=== PATIENT | female | born 1950 | race Hispanic/Latino ===

== ENCOUNTER 2021-11-06 01:21 | Inpatient (IN) | payer MEDICARE ==
[2021-11-06] MEDS ORDERED: clonazePAM 0.5 MG TAB PO ONE (01:53)
[2021-11-06] MEDS ORDERED: risperiDONE 1 MG TAB PO SCH (02:00)
--- NOTE | 2021-11-06 11:05 | Consultation ---
History of Present Illness - Reason for Consult Consult date: 11/06/21 Medical management Requesting physician: MARILEE SWANSON - History of Present Illness 70 YO Female with Vascular Dementia with behavioral disturbance, Cerebral Atherosclerosis, HTN, Seizure Disorder, OA, MDD, CARYN, Bipolar Disorder admitted to [facility] for psychiatric stabilization. Patient seen and evaluated in the recreation room. Patient denies fever, chills, chest pain, palpitation, a dductive cough, skin rash and recent contact, no supportive COVID-19. Patient appears to be at baseline level of cognition and function. No reported nursing events. Past History Past Medical History: arthritis, hypertension, seizures, other (See HPI) Past Surgical History: Other (Spine surgery) Social history: single. denies: smoking, alcohol abuse, prescription drug abuse Family history: diabetes, hypertension Medications and Allergies Allergies Allergy/AdvReac Type Severity Reaction Status Date / Time No Known Allergies Allergy Verified 11/06/21 01:39 Home Medications Medication Instructions Recorded Confirmed Last Taken Type Escitalopram [Lexapro] 10 mg PO DAILY 11/06/21 11/06/21 Unknown History Famotidine [Acid-Pep] 20 mg PO BID 11/06/21 11/06/21 Unknown History Meloxicam [Mobic] 7.5 mg PO QDAY 11/06/21 11/06/21 Unknown History Propranolol HCl [Inderal Xl] 80 mg PO DAILY 11/06/21 11/06/21 Unknown History amLODIPine [Norvasc] 5 mg PO DAILY 11/06/21 11/06/21 Unknown History buPROPion HCL [Bupropion Xl] 150 mg PO DAILY 11/06/21 11/06/21 Unknown History cephALEXin [Keflex] 500 mg PO TID 11/06/21 11/06/21 Unknown History clonazePAM [Klonopin] 1 mg PO QID 11/06/21 11/06/21 Unknown History lamoTRIgine [LaMICtal] 25 mg PO BID 11/06/21 11/06/21 Unknown History lisinopriL [Lisinopril] 10 mg PO DAILY 11/06/21 11/06/21 Unknown History risperiDONE [RisperDAL] 1 mg PO HS 11/06/21 11/06/21 Unknown History risperiDONE [RisperDAL] 1 mg PO HS 11/06/21 11/06/21 Unknown History Review of Systems Constitutional: no weight loss, no weight gain, no fever, no chills Ears, nose, mouth and throat: no ear pain, no ear discharge, no decreased hearing, no nose pain, no nasal congestion Breasts: no change in shape, no swelling, no mass Cardiovascular: no chest pain, no orthopnea, no palpitations, no rapid/irregular heart beat Respiratory: no cough, no excessive sputum Gastrointestinal: no abdominal pain, no nausea, no diarrhea, no constipation, no change in bowel habits Genitourinary Female: no pelvic pain, no flank pain, no dysuria, no urinary frequency, no urgency Rectal: no pain, no incontinence, no bleeding Musculoskeletal: no neck stiffness, no neck pain, no shooting arm pain, no leg numbness/tingling Integumentary: no rash, no pruritis, no redness, no sores, no wounds, no jaundice Neurological: no head injury, no transient paralysis, no weakness, no numbness, no seizures Psychiatric: anxiety, irritability, sadness/tearfullness, mood swings Endocrine: no cold intolerance, no heat intolerance, no excessive thirst, no polydipsia, no polyuria Hematologic/Lymphatic: no easy bleeding, no lymphadenopathy Allergic/Immunologic: no urticaria, no wheezing, no persistent infections, no angioedema Exam - Constitutional Vitals: Temp Pulse Resp BP Pulse Ox 97.5 F L 94 H 18 162/72 97 11/06/21 09:48 11/06/21 09:48 11/06/21 09:48 11/06/21 09:48 11/06/21 09:48 General appearance: Present: no acute distress, well-nourished - EENT Eyes: Present: PERRL ENT: hearing intact, clear oral mucosa - Neck Neck: Present: supple, normal ROM - Respiratory Respiratory effort: normal Respiratory: bilateral: CTA - Cardiovascular Heart Sounds: Present: S1 & S2. Absent: rub, click - Extremities Extremities: pulses symmetrical, No edema Peripheral Pulses: within normal limits - Abdominal General gastrointestinal: Present: soft, non-tender, non-distended, normal bowel sounds Female genitourinary: Present: normal - Integumentary Integumentary: Present: clear, warm, dry - Musculoskeletal Musculoskeletal: gait normal, strength equal bilaterally - Psychiatric Psychiatric: appropriate mood/affect, intact judgment & insight - Neurologic Neurologic: CNII-XII intact, moves all extremities Assessment and Plan - Patient Problems (1) Vascular dementia with behavior disturbance Current Visit: Yes Status: Acute Plan to address problem: Verbal prompting, verbal redirection, benzodiazepine therapy as clinically indicated. (2) Cerebral atherosclerosis Current Visit: Yes Status: Acute Plan to address problem: Risk factor reduction, antiplatelet therapy as clinically indicated. (3) Seizure disorder Current Visit: Yes Status: Acute Plan to address problem: Continue antiepileptic therapy, no seizure activity at this time, seizure precautions. (4) Hypertension Current Visit: Yes Status: Acute Qualifiers: Hypertension type: primary hypertension Qualified Code(s): I10 - Essential (primary) hypertension Plan to address problem: Monitor blood pressure every shift, continue medical management (5) Major depression Current Visit: Yes Status: Acute Plan to address problem: Continue medical management, supportive care. (6) Generalized anxiety disorder Current Visit: Yes Status: Acute Plan to address problem: Benzodiazepine therapy as clinically indicated. (7) Bipolar disorder Current Visit: Yes Status: Acute Plan to address problem: Continue medical management, supportive care. (8) Advance care planning Current Visit: Yes Status: Acute Plan to address problem: Disease education conducted, care plan discussed, diagnoses discussed, prognosis discussed, patient is full code, +30 minutes. (9) Preventative health care Current Visit: Yes Status: Acute Plan to address problem: Patient counseled regarding home safety, risk factor reduction, outpatient follow-up with primary care physician for all age and risk factor appropriate screening test. +30 minutes.
[2021-11-06] MEDS: buPROPion XL 150 MG TAB PO SCH (13:33)
[2021-11-06] MEDS: ESCITALOPRAM 10 MG TAB PO SCH (13:33)
[2021-11-06] MEDS: cephALEXin 500 MG CAP PO SCH ×2 (13:53→20:46)
[2021-11-06] MEDS ORDERED: ACETAMINOPHEN 325 MG TAB PO PRN (13:55)
[2021-11-06] MEDS ORDERED: NON-FORMULARY EACH (Clonazepam [Klonopin] 1 MG Tablet) PO SCH (14:00)
[2021-11-06] MEDS ORDERED: clonazePAM 0.5 MG TAB PO SCH (14:00)
--- NOTE | 2021-11-06 16:31 | History and Physical Report ---
GP History & Physical - History of Present Illness Date of admission: 11/05/21 Date of Examination: 11/06/21 Reason for Admission: Danger to self, Failure of Outpatient Treatment, Severe anxiety/depression History of Present Illness: The patient was seen today. She is very anxious, and crying. She is shaking. She says she is depressed and feeling very nervous. The patient is a/o x 3. She says she was admitted into the hospital for having mental problems. She denies SI/HI or hallucinations. The patient says she has a history of schizophrenia, anxiety. She denies any illicit drug use. PAST PSYCHIATRIC HISTORY: Diagnoses: schizophrenia, anxiety Suicide attempts or Self-harm behavior: Denies Prior psychiatric hospitalizations: Yes Substance Abuse history: Denies Previous psychiatric medications tried: Could not recall Outpatient treatment: Yes PAST MEDICAL HISTORY: Family Psychiatric History: None reported SOCIAL HISTORY Marital Status: Single Living Arrangements: Alone Employment Status: Disabled Access to guns/weapons: Denies Education: History of Abuse: Denies Legal History: REVIEW OF SYSTEMS Constitutional: Negative for weight loss ENT: Negative for stridor Respiratory: Negative for cough or hemoptysis All other systems reviewed and are negative MENTAL STATUS General Appearance and Behavior: age appropriate, good eye contact, cooperative, anxious Cooperation: Cooperative Psychomotor Behavior: within normal limits Mood: depressed, anxious Affect and affective range: Congruent with stated mood, tearful Thought Process: goal directed Thought Content: None Speech: Normal volume and Regular rate and rhythm Suicidal Ideation: Denies Homicidal Ideation: Denies HI Hallucinations: Denies Impulse Control: intact Insight and Judgment: Limited Memory: Limited Attention: Distracted Orientation: alert and oriented Assessment Schizophrenia Generalized Anxiety Disorder Treatment Plan Patient will be admitted for inpatient psychiatric evaluation, medication adjustment and close monitoring The patient's behavior, mood, sleep and appetite will be closely monitored. Patient will be enrolled in individual and group therapeutic sessions and enc ouraged to attend. Patient will be provided with a safe and structured environment. Patient's physical health needs will be addressed by the Hospitalist. Hospitalist Consulted Labs including CBC, CMP, Lipid profile and Hemoglobin A1C ordered Social Assessment will be completed and the Lumber Salvager will work with patient and family to ensure a suitable and safe disposition Medication adjustment will be made as clinically indicated Restarted home meds Usual Wellness Roman Catholic/Preservation: - Start Trazodone 50 mg po QHS PRN The patient agreed on the treatment plan, understood the risk, benefit, alternative treatment, potential consequence of no treatment, and gave informed consent. Case staffed with Dr. Bull Legal Status: Voluntary Reaction to Hospitalization: Accepting Medications and Allergies Allergies Allergy/AdvReac Type Severity Reaction Status Date / Time No Known Allergies Allergy Verified 11/06/21 01:39 Home Medications Medication Instructions Recorded Confirmed Last Taken Type Escitalopram [Lexapro] 10 mg PO DAILY 11/06/21 11/06/21 Unknown History Famotidine [Acid-Pep] 20 mg PO BID 11/06/21 11/06/21 Unknown History Meloxicam [Mobic] 7.5 mg PO QDAY 11/06/21 11/06/21 Unknown History Propranolol HCl [Inderal Xl] 80 mg PO DAILY 11/06/21 11/06/21 Unknown History amLODIPine [Norvasc] 5 mg PO DAILY 11/06/21 11/06/21 Unknown History buPROPion HCL [Bupropion Xl] 150 mg PO DAILY 11/06/21 11/06/21 Unknown History cephALEXin [Keflex] 500 mg PO TID 11/06/21 11/06/21 Unknown History clonazePAM [Klonopin] 1 mg PO QID 11/06/21 11/06/21 Unknown History lamoTRIgine [LaMICtal] 25 mg PO BID 11/06/21 11/06/21 Unknown History lisinopriL [Lisinopril] 10 mg PO DAILY 11/06/21 11/06/21 Unknown History risperiDONE [RisperDAL] 1 mg PO HS 11/06/21 11/06/21 Unknown History risperiDONE [RisperDAL] 1 mg PO HS 11/06/21 11/06/21 Unknown History Active Meds: Active Medications Acetaminophen (Acetaminophen 325 Mg Tab) 650 mg PO Q6H PRN PRN Reason: Pain, Mild (1-3) Last Admin: 11/06/21 14:00 Dose: 650 mg Amlodipine Besylate (Amlodipine 5 Mg Tab) 5 mg PO DAILY [facility] Bupropion HCl (Bupropion Xl 150 Mg Tab) 150 mg PO DAILY [facility] Last Admin: 11/06/21 13:33 Dose: 150 mg Cephalexin (Cephalexin 500 Mg Cap) 500 mg PO TID [facility]; Protocol Last Admin: 11/06/21 13:53 Dose: 500 mg Clonazepam (Clonazepam 0.5 Mg Tab) 1 mg PO TID [facility] Last Admin: 11/06/21 13:33 Dose: 1 mg Escitalopram Oxalate (Escitalopram 10 Mg Tab) 10 mg PO DAILY [facility] Last Admin: 11/06/21 13:33 Dose: 10 mg Famotidine (Famotidine 20 Mg Tab) 20 mg PO BID [facility] Lamotrigine (Lamotrigine 25 Mg Tab) 25 mg PO BID [facility] Lisinopril (Lisinopril 10 Mg Tab) 10 mg PO DAILY [facility] Meloxicam (Meloxicam 7.5 Mg Tab) 7.5 mg PO QDAY [facility] Propranolol HCl (Propranolol La 80 Mg Cap) 80 mg PO QDAY [facility] Risperidone (Risperidone 1 Mg Tab) 1 mg PO HS [facility] Results - Results Labs/Vitals: Last Vital Signs Temp 97.5 F L 11/06/21 09:48 Pulse 94 H 11/06/21 09:48 Resp 18 11/06/21 09:48 BP 162/72 11/06/21 09:48 Pulse Ox 97 11/06/21 09:48 Physical Examination - Constitutional Vitals: Vital Signs Temp Pulse Resp BP Pulse Ox 97.5 F L 94 H 18 162/72 97 11/06/21 09:48 11/06/21 09:48 11/06/21 09:48 11/06/21 09:48 11/06/21 09:48 Temperature -Last 24 Hours Temperature 97.5 F Temperature 98.3 F Mental Status Exam - Vital signs Last Vital Signs Temp 97.5 F L 11/06/21 09:48 Pulse 94 H 11/06/21 09:48 Resp 18 11/06/21 09:48 BP 162/72 11/06/21 09:48 Pulse Ox 97 11/06/21 09:48 Physician Certification - Certification Statement Physician Certification Statement: This is an acknowledgement statement that JEN PHELAN is a 70 year old F who requires inpatient psychiatric admission for treatment which could reasonably be expected to improve the patient's condition for Estimated period of time patient will need to remain in the hospital: [ ] Plan for post-hospital care: [ ]
[2021-11-06] MEDS: clonazePAM 0.5 MG TAB PO SCH ×2 (17:55→21:46)
[2021-11-06] MEDS: FAMOTIDINE 20 MG TAB PO SCH (21:46)
[2021-11-06] MEDS: risperiDONE 1 MG TAB PO SCH (21:47)
[2021-11-06] MEDS: lamoTRIgine 25 MG TAB PO SCH (21:47)
--- NOTE | 2021-11-07 09:19 | Progress Note ---
Subjective Date of service: 11/07/21 Principal diagnosis: schizophrenia Subjective Comment: The patient was seen today. She says she feels a lot better. She does still report a lot of anxiety. She says she slept good last night. The patient denies SI/HI. REVIEW OF SYSTEMS Constitutional: Negative for weight loss ENT: Negative for stridor Respiratory: Negative for cough or hemoptysis All other systems reviewed and are negative MENTAL STATUS General Appearance and Behavior: age appropriate, good eye contact, cooperative, anxious Cooperation: Cooperative Psychomotor Behavior: within normal limits Mood: depressed, anxious Affect and affective range: Congruent with stated mood, tearful Thought Process: goal directed Thought Content: None Speech: Normal volume and Regular rate and rhythm Suicidal Ideation: Denies Homicidal Ideation: Denies HI Hallucinations: Denies Impulse Control: intact Insight and Judgment: Limited Memory: Limited Attention: Distracted Orientation: alert and oriented Assessment Schizophrenia Generalized Anxiety Disorder Treatment Plan Patient will be admitted for inpatient psychiatric evaluation, medication adjustment and close monitoring The patient's behavior, mood, sleep and appetite will be closely monitored. Patient will be enrolled in individual and group therapeutic sessions and enco uraged to attend. Patient will be provided with a safe and structured environment. Patient's physical health needs will be addressed by the Hospitalist. Hospitalist Consulted Labs including CBC, CMP, Lipid profile and Hemoglobin A1C ordered Social Assessment will be completed and the Infrastructure Technician will work with patient and family to ensure a suitable and safe disposition Medication adjustment will be made as clinically indicated Start Vistaril 25mg po q6h prn anxiety Usual Wellness Druze/Preservation: - Start Trazodone 50 mg po QHS PRN The patient agreed on the treatment plan, understood the risk, benefit, alternative treatment, potential consequence of no treatment, and gave informed consent. Case staffed with Dr. Bull Medications and Allergies Allergies Allergy/AdvReac Type Severity Reaction Status Date / Time No Known Allergies Allergy Verified 11/06/21 01:39 Home Medications Medication Instructions Recorded Confirmed Last Taken Type Escitalopram [Lexapro] 10 mg PO DAILY 11/06/21 11/06/21 Unknown History Famotidine [Acid-Pep] 20 mg PO BID 11/06/21 11/06/21 Unknown History Meloxicam [Mobic] 7.5 mg PO QDAY 11/06/21 11/06/21 Unknown History Propranolol HCl [Inderal Xl] 80 mg PO DAILY 11/06/21 11/06/21 Unknown History amLODIPine [Norvasc] 5 mg PO DAILY 11/06/21 11/06/21 Unknown History buPROPion HCL [Bupropion Xl] 150 mg PO DAILY 11/06/21 11/06/21 Unknown History cephALEXin [Keflex] 500 mg PO TID 11/06/21 11/06/21 Unknown History clonazePAM [Klonopin] 1 mg PO QID 11/06/21 11/06/21 Unknown History lamoTRIgine [LaMICtal] 25 mg PO BID 11/06/21 11/06/21 Unknown History lisinopriL [Lisinopril] 10 mg PO DAILY 11/06/21 11/06/21 Unknown History risperiDONE [RisperDAL] 1 mg PO HS 11/06/21 11/06/21 Unknown History risperiDONE [RisperDAL] 1 mg PO HS 11/06/21 11/06/21 Unknown History Active Meds: Active Medications Acetaminophen (Acetaminophen 325 Mg Tab) 650 mg PO Q6H PRN PRN Reason: Pain, Mild (1-3) Last Admin: 11/06/21 14:00 Dose: 650 mg Amlodipine Besylate (Amlodipine 5 Mg Tab) 5 mg PO DAILY [facility] Bupropion HCl (Bupropion Xl 150 Mg Tab) 150 mg PO DAILY [facility] Last Admin: 11/06/21 13:33 Dose: 150 mg Cephalexin (Cephalexin 500 Mg Cap) 500 mg PO TID [facility]; Protocol Stop: 11/13/21 08:01 Last Admin: 11/06/21 20:46 Dose: 500 mg Clonazepam (Clonazepam 0.5 Mg Tab) 1 mg PO QID [facility] Last Admin: 11/06/21 21:46 Dose: 1 mg Escitalopram Oxalate (Escitalopram 10 Mg Tab) 10 mg PO DAILY [facility] Last Admin: 11/06/21 13:33 Dose: 10 mg Famotidine (Famotidine 20 Mg Tab) 20 mg PO BID [facility] Last Admin: 11/06/21 21:46 Dose: 20 mg Lamotrigine (Lamotrigine 25 Mg Tab) 25 mg PO BID [facility] Last Admin: 11/06/21 21:47 Dose: 25 mg Lisinopril (Lisinopril 10 Mg Tab) 10 mg PO DAILY [facility] Meloxicam (Meloxicam 7.5 Mg Tab) 7.5 mg PO QDAY [facility] Propranolol HCl (Propranolol La 80 Mg Cap) 80 mg PO QDAY [facility] Risperidone (Risperidone 1 Mg Tab) 1 mg PO HS [facility] Last Admin: 11/06/21 21:47 Dose: 1 mg Results - Results Labs/Vitals: Last Vital Signs Temp 98.2 F 11/06/21 19:49 Pulse 90 11/06/21 19:49 Resp 18 11/06/21 19:49 BP 156/83 11/06/21 19:49 Pulse Ox 90 11/06/21 19:49
[2021-11-07] MEDS: clonazePAM 0.5 MG TAB PO SCH ×4 (09:35→21:29)
[2021-11-07] MEDS: lamoTRIgine 25 MG TAB PO SCH ×2 (09:35→21:30)
[2021-11-07] MEDS: cephALEXin 500 MG CAP PO SCH ×3 (09:35→20:35)
[2021-11-07] MEDS: ESCITALOPRAM 10 MG TAB PO SCH (09:35)
[2021-11-07] MEDS: buPROPion XL 150 MG TAB PO SCH (09:36)
[2021-11-07] MEDS: MELOXICAM 7.5 MG TAB PO SCH (09:36)
[2021-11-07] MEDS: PROPRANOLOL LA 80 MG CAP PO SCH (09:40)
[2021-11-07] MEDS: amLODIPine 5 MG TAB PO SCH (09:40)
[2021-11-07] MEDS ORDERED: hydrOXYzine PAMOATE 25 MG CAP PO PRN (10:00)
[2021-11-07] MEDS ORDERED: PROPRANOLOL HCL 80 MG PO SCH (10:00)
[2021-11-07] MEDS: LISINOPRIL 10 MG TAB PO SCH (11:00)
[2021-11-07] MEDS: FAMOTIDINE 20 MG TAB PO SCH ×2 (16:05→21:30)
[2021-11-07] MEDS ORDERED: ACETAMINOPHEN 325 MG TAB PO PRN (16:33)
--- NOTE | 2021-11-07 20:10 | Progress Note ---
Assessment and Plan - Patient Problems (1) Vascular dementia with behavior disturbance Current Visit: Yes Status: Acute Plan to address problem: Verbal prompting, verbal redirection, benzodiazepine therapy as clinically indicated. (2) Cerebral atherosclerosis Current Visit: Yes Status: Acute Plan to address problem: Risk factor reduction, antiplatelet therapy as clinically indicated. (3) Seizure disorder Current Visit: Yes Status: Acute Plan to address problem: Continue antiepileptic therapy, no seizure activity at this time, seizure precautions. (4) Hypertension Current Visit: Yes Status: Acute Qualifiers: Hypertension type: primary hypertension Qualified Code(s): I10 - Essential (primary) hypertension Plan to address problem: Monitor blood pressure every shift, continue medical management (5) Major depression Current Visit: Yes Status: Acute Plan to address problem: Continue medical management, supportive care. (6) Generalized anxiety disorder Current Visit: Yes Status: Acute Plan to address problem: Benzodiazepine therapy as clinically indicated. (7) Bipolar disorder Current Visit: Yes Status: Acute Plan to address problem: Continue medical management, supportive care. (8) Advance care planning Current Visit: Yes Status: Acute Plan to address problem: Disease education conducted, care plan discussed, diagnoses discussed, prognosis discussed, patient is full code, +30 minutes. (9) Preventative health care Current Visit: Yes Status: Acute Plan to address problem: Patient counseled regarding home safety, risk factor reduction, outpatient follow-up with primary care physician for all age and risk factor appropriate screening test. +30 minutes. History Interval history: 70 YO Female with Vascular Dementia with behavioral disturbance, Cerebral Atherosclerosis, HTN, Seizure Disorder, OA, MDD, CARYN, Bipolar Disorder admitted to [facility] for psychiatric stabilization. Patient seen and evaluated in the recreation room. Patient appears to be at baseline level of cognition and function. No reported nursing events. Hospitalist Physical - Constitutional Vitals: Temp Pulse Resp BP Pulse Ox 98.1 F 110 H 20 120/77 94 11/07/21 09:49 11/07/21 11:00 11/07/21 09:49 11/07/21 11:00 11/07/21 09:49 General appearance: Present: no acute distress, well-nourished - EENT Eyes: Present: PERRL ENT: hearing decreased - Neck Neck: Present: supple - Respiratory Respiratory effort: normal Respiratory: bilateral: diminished - Cardiovascular Rhythm: regular Heart Sounds: Present: S1 & S2 - Extremities Extremities: no ischemia Peripheral Pulses: within normal limits - Abdominal General gastrointestinal: soft, non-tender, non-distended - Integumentary Integumentary: Present: clear, dry - Psychiatric Psychiatric: cooperative - Neurologic Neurologic: CNII-XII intact Results Lloyd/IV: Voiding Method Toilet Active Medications - Current Medications Current Medications: Generic Name Dose Route Start Last Admin Trade Name Freq PRN Reason Stop Dose Admin Acetaminophen 650 mg 11/07/21 16:48 Acetaminophen 325 Mg Tab PO Q6H PRN Pain, Mild (1-3) Amlodipine Besylate 5 mg 11/07/21 10:00 11/07/21 09:40 Amlodipine 5 Mg Tab PO 5 mg DAILY [facility] Administration Bupropion HCl 150 mg 11/06/21 13:00 11/07/21 09:36 Bupropion Xl 150 Mg Tab PO 150 mg DAILY [facility] Administration Cephalexin 500 mg 11/06/21 14:00 11/07/21 16:05 Cephalexin 500 Mg Cap PO 11/13/21 08:01 500 mg TID [facility] Administration Protocol Clonazepam 1 mg 11/06/21 18:00 11/07/21 18:35 Clonazepam 0.5 Mg Tab PO 1 mg QID [facility] Administration Escitalopram Oxalate 10 mg 11/06/21 14:00 11/07/21 09:35 Escitalopram 10 Mg Tab PO 10 mg DAILY [facility] Administration Famotidine 20 mg 11/06/21 22:00 11/07/21 16:05 Famotidine 20 Mg Tab PO 20 mg BID [facility] Administration Hydroxyzine Pamoate 25 mg 11/07/21 10:00 Hydroxyzine Pamoate 25 Mg Cap PO Q6H PRN Anxiety Lamotrigine 25 mg 11/06/21 22:00 11/07/21 09:35 Lamotrigine 25 Mg Tab PO 25 mg BID [facility] Administration Lisinopril 10 mg 11/07/21 10:00 11/07/21 11:00 Lisinopril 10 Mg Tab PO 10 mg DAILY [facility] Administration Meloxicam 7.5 mg 11/07/21 10:00 11/07/21 09:36 Meloxicam 7.5 Mg Tab PO 7.5 mg QDAY [facility] Administration Propranolol HCl 80 mg 11/07/21 10:00 11/07/21 09:40 Propranolol La 80 Mg Cap PO 80 mg QDAY [facility] Administration Risperidone 1 mg 11/06/21 22:00 11/06/21 21:47 Risperidone 1 Mg Tab PO 1 mg HS [facility] Administration
[2021-11-07] MEDS: risperiDONE 1 MG TAB PO SCH (21:30)
[2021-11-08] MEDS: PROPRANOLOL LA 80 MG CAP PO SCH (09:34)
[2021-11-08] MEDS: clonazePAM 0.5 MG TAB PO SCH ×4 (09:34→21:42)
[2021-11-08] MEDS: lamoTRIgine 25 MG TAB PO SCH ×2 (09:34→22:12)
[2021-11-08] MEDS: FAMOTIDINE 20 MG TAB PO SCH ×2 (09:34→21:43)
[2021-11-08] MEDS: MELOXICAM 7.5 MG TAB PO SCH (09:35)
[2021-11-08] MEDS: buPROPion XL 150 MG TAB PO SCH (09:35)
[2021-11-08] MEDS: cephALEXin 500 MG CAP PO SCH ×3 (09:35→20:58)
[2021-11-08] MEDS: ESCITALOPRAM 10 MG TAB PO SCH (09:35)
[2021-11-08] MEDS: LISINOPRIL 10 MG TAB PO SCH (09:40)
[2021-11-08] MEDS: amLODIPine 5 MG TAB PO SCH (09:40)
[2021-11-08] MEDS: ACETAMINOPHEN 325 MG TAB PO PRN (11:16)
--- NOTE | 2021-11-08 12:48 | Progress Note ---
Subjective Date of service: 11/08/21 Principal diagnosis: schizophrenia Subjective Comment: 11/08: The patient was seen today. The patient presents with somatic issues. She is calm and cooperative. She reports feeling a little depressed. She denies any current suicidal/homicidal ideation and denies hallucinations. REVIEW OF SYSTEMS Constitutional: Negative for weight loss ENT: Negative for stridor Respiratory: Negative for cough or hemoptysis All other systems reviewed and are negative MENTAL STATUS General Appearance and Behavior: age appropriate, good eye contact, cooperative Cooperation: Cooperative Psychomotor Behavior: within normal limits Mood: depressed Affect and affective range: Congruent with stated mood Thought Process: goal directed Thought Content:reality oriented Speech: Normal volume and Regular rate and rhythm Suicidal Ideation: Denies Homicidal Ideation: Denies HI Hallucinations: Denies Impulse Control: intact Insight and Judgment: Limited Memory: Limited Attention: Distracted Orientation: alert and oriented Assessment Schizophrenia Generalized Anxiety Disorder Treatment Plan Patient will be admitted for inpatient psychiatric evaluation, medication adjustment and close monitoring The patient's behavior, mood, sleep and appetite will be closely monitored. Patient will be enrolled in individual and group therapeutic sessions and encouraged to attend. Patient will be provided with a safe and structured environment. Patient's physical health needs will be addressed by the Hospitalist. Hospitalist Consulted Labs including CBC, CMP, Lipid profile and Hemoglobin A1C ordered Social Assessment will be completed and the Surveillance Director will work with patient and family to ensure a suitable and safe disposition Medication adjustment will be made as clinically indicated Continue Vistaril 25mg po q6h prn anxiety No changes made today. Usual Wellness Adventist/Preservation: - Start Trazodone 50 mg po QHS PRN The patient agreed on the treatment plan, understood the risk, benefit, alternative treatment, potential consequence of no treatment, and gave informed consent. Case staffed with Dr. Bull Medications and Allergies Medications and Allergies Allergies Allergy/AdvReac Type Severity Reaction Status Date / Time No Known Allergies Allergy Verified 11/06/21 01:39 Home Medications Medication Instructions Recorded Confirmed Last Taken Type Escitalopram [Lexapro] 10 mg PO DAILY 11/06/21 11/06/21 Unknown History Famotidine [Acid-Pep] 20 mg PO BID 11/06/21 11/06/21 Unknown History Meloxicam [Mobic] 7.5 mg PO QDAY 11/06/21 11/06/21 Unknown History Propranolol HCl [Inderal Xl] 80 mg PO DAILY 11/06/21 11/06/21 Unknown History amLODIPine [Norvasc] 5 mg PO DAILY 11/06/21 11/06/21 Unknown History buPROPion HCL [Bupropion Xl] 150 mg PO DAILY 11/06/21 11/06/21 Unknown History cephALEXin [Keflex] 500 mg PO TID 11/06/21 11/06/21 Unknown History clonazePAM [Klonopin] 1 mg PO QID 11/06/21 11/06/21 Unknown History lamoTRIgine [LaMICtal] 25 mg PO BID 11/06/21 11/06/21 Unknown History lisinopriL [Lisinopril] 10 mg PO DAILY 11/06/21 11/06/21 Unknown History risperiDONE [RisperDAL] 1 mg PO HS 11/06/21 11/06/21 Unknown History risperiDONE [RisperDAL] 1 mg PO HS 11/06/21 11/06/21 Unknown History Active Meds: Active Medications Acetaminophen (Acetaminophen 325 Mg Tab) 650 mg PO Q6H PRN PRN Reason: Pain, Mild (1-3) Last Admin: 11/08/21 11:16 Dose: 650 mg Amlodipine Besylate (Amlodipine 5 Mg Tab) 5 mg PO DAILY [facility] Last Admin: 11/08/21 09:40 Dose: 5 mg Bupropion HCl (Bupropion Xl 150 Mg Tab) 150 mg PO DAILY [facility] Last Admin: 11/08/21 09:35 Dose: 150 mg Cephalexin (Cephalexin 500 Mg Cap) 500 mg PO TID [facility]; Protocol Stop: 11/13/21 08:01 Last Admin: 11/08/21 09:35 Dose: 500 mg Clonazepam (Clonazepam 0.5 Mg Tab) 1 mg PO QID [facility] Last Admin: 11/08/21 09:34 Dose: 1 mg Escitalopram Oxalate (Escitalopram 10 Mg Tab) 10 mg PO DAILY [facility] Last Admin: 11/08/21 09:35 Dose: 10 mg Famotidine (Famotidine 20 Mg Tab) 20 mg PO BID [facility] Last Admin: 11/08/21 09:34 Dose: 20 mg Hydroxyzine Pamoate (Hydroxyzine Pamoate 25 Mg Cap) 25 mg PO Q6H PRN PRN Reason: Anxiety Last Admin: 11/08/21 11:16 Dose: 25 mg Lamotrigine (Lamotrigine 25 Mg Tab) 25 mg PO BID [facility] Last Admin: 11/08/21 09:34 Dose: 25 mg Lisinopril (Lisinopril 10 Mg Tab) 10 mg PO DAILY [facility] Last Admin: 11/08/21 09:40 Dose: 10 mg Meloxicam (Meloxicam 7.5 Mg Tab) 7.5 mg PO QDAY [facility] Last Admin: 11/08/21 09:35 Dose: 7.5 mg Propranolol HCl (Propranolol La 80 Mg Cap) 80 mg PO QDAY [facility] Last Admin: 11/08/21 09:34 Dose: 80 mg Risperidone (Risperidone 1 Mg Tab) 1 mg PO [facility] Last Admin: 11/07/21 21:30 Dose: 1 mg Results - Results Labs/Vitals: Last Vital Signs Temp 97.3 F L 11/07/21 21:13 Pulse 69 11/08/21 09:40 Resp 18 11/07/21 21:13 BP 112/71 11/08/21 09:40 Pulse Ox 92 11/07/21 21:13
[2021-11-08] MEDS: risperiDONE 1 MG TAB PO SCH (21:43)
[2021-11-09] MEDS: ESCITALOPRAM 10 MG TAB PO SCH (09:34)
[2021-11-09] MEDS: lamoTRIgine 25 MG TAB PO SCH ×2 (09:34→21:56)
[2021-11-09] MEDS: MELOXICAM 7.5 MG TAB PO SCH (09:34)
[2021-11-09] MEDS: FAMOTIDINE 20 MG TAB PO SCH ×2 (09:36→21:56)
[2021-11-09] MEDS: buPROPion XL 150 MG TAB PO SCH (09:36)
[2021-11-09] MEDS: cephALEXin 500 MG CAP PO SCH ×3 (09:36→20:05)
--- NOTE | 2021-11-09 09:58 | Progress Note ---
Subjective Date of service: 11/09/21 Principal diagnosis: schizophrenia Subjective Comment: 11/09: The patient was seen today. She is calm and cooperative. She reports doing ok; states sleep and appetite as good. She denies any current suicidal/homicidal ideation and denies hallucinations. 11/08: The patient was seen today. The patient presents with somatic issues. She is calm and cooperative. She reports feeling a little depressed. She denies any current suicidal/homicidal ideation and denies hallucinations. REVIEW OF SYSTEMS Constitutional: Negative for weight loss ENT: Negative for stridor Respiratory: Negative for cough or hemoptysis All other systems reviewed and are negative MENTAL STATUS General Appearance and Behavior: age appropriate, good eye contact, cooperative Cooperation: Cooperative Psychomotor Behavior: within normal limits Mood: Ok Affect and affective range: Congruent with stated mood Thought Process: goal directed Thought Content:reality oriented Speech: Normal volume and Regular rate and rhythm Suicidal Ideation: Denies Homicidal Ideation: Denies HI Hallucinations: Denies Impulse Control: intact Insight and Judgment: Limited Memory: Limited Attention: Distracted Orientation: alert and oriented Assessment Schizophrenia Generalized Anxiety Disorder Treatment Plan Patient will be admitted for inpatient psychiatric evaluation, medication adjustment and close monitoring The patient's behavior, mood, sleep and appetite will be closely monitored. Patient will be enrolled in individual and group therapeutic sessions and encouraged to attend. Patient will be provided with a safe and structured environment. Patient's physical health needs will be addressed by the Hospitalist. Adelita rowe Consulted Labs including CBC, CMP, Lipid profile and Hemoglobin A1C ordered Social Assessment will be completed and the Geology Scientist will work with patient and family to ensure a suitable and safe disposition Medication adjustment will be made as clinically indicated Continue Vistaril 25mg po q6h prn anxiety No changes made today. Usual Wellness Adventism/Preservation: - Start Trazodone 50 mg po QHS PRN The patient agreed on the treatment plan, understood the risk, benefit, alternative treatment, potential consequence of no treatment, and gave informed consent. Case staffed with Dr. Bull Medications and Allergies Medications and Allergies Allergies Allergy/AdvReac Type Severity Reaction Status Date / Time No Known Allergies Allergy Verified 11/06/21 01:39 Home Medications Medication Instructions Recorded Confirmed Last Taken Type Escitalopram [Lexapro] 10 mg PO DAILY 11/06/21 11/06/21 Unknown History Famotidine [Acid-Pep] 20 mg PO BID 11/06/21 11/06/21 Unknown History Meloxicam [Mobic] 7.5 mg PO QDAY 11/06/21 11/06/21 Unknown History Propranolol HCl [Inderal Xl] 80 mg PO DAILY 11/06/21 11/06/21 Unknown History amLODIPine [Norvasc] 5 mg PO DAILY 11/06/21 11/06/21 Unknown History buPROPion HCL [Bupropion Xl] 150 mg PO DAILY 11/06/21 11/06/21 Unknown History cephALEXin [Keflex] 500 mg PO TID 11/06/21 11/06/21 Unknown History clonazePAM [Klonopin] 1 mg PO QID 11/06/21 11/06/21 Unknown History lamoTRIgine [LaMICtal] 25 mg PO BID 11/06/21 11/06/21 Unknown History lisinopriL [Lisinopril] 10 mg PO DAILY 11/06/21 11/06/21 Unknown History risperiDONE [RisperDAL] 1 mg PO HS 11/06/21 11/06/21 Unknown History risperiDONE [RisperDAL] 1 mg PO HS 11/06/21 11/06/21 Unknown History Active Meds: Active Medications Acetaminophen (Acetaminophen 325 Mg Tab) 650 mg PO Q6H PRN PRN Reason: Pain, Mild (1-3) Last Admin: 11/08/21 11:16 Dose: 650 mg Amlodipine Besylate (Amlodipine 5 Mg Tab) 5 mg PO DAILY [facility] Last Admin: 11/08/21 09:40 Dose: 5 mg Bupropion HCl (Bupropion Xl 150 Mg Tab) 150 mg PO DAILY [facility] Last Admin: 11/09/21 09:36 Dose: 150 mg Cephalexin (Cephalexin 500 Mg Cap) 500 mg PO TID [facility]; Protocol Stop: 11/13/21 08:01 Last Admin: 11/09/21 09:36 Dose: 500 mg Clonazepam (Clonazepam 0.5 Mg Tab) 1 mg PO QID [facility] Last Admin: 11/08/21 21:42 Dose: 1 mg Escitalopram Oxalate (Escitalopram 10 Mg Tab) 10 mg PO DAILY [facility] Last Admin: 11/09/21 09:34 Dose: 10 mg Famotidine (Famotidine 20 Mg Tab) 20 mg PO BID [facility] Last Admin: 11/09/21 09:36 Dose: 20 mg Hydroxyzine Pamoate (Hydroxyzine Pamoate 25 Mg Cap) 25 mg PO Q6H PRN PRN Reason: Anxiety Last Admin: 11/08/21 11:16 Dose: 25 mg Lamotrigine (Lamotrigine 25 Mg Tab) 25 mg PO BID [facility] Last Admin: 11/09/21 09:34 Dose: 25 mg Lisinopril (Lisinopril 10 Mg Tab) 10 mg PO DAILY [facility] Last Admin: 11/08/21 09:40 Dose: 10 mg Meloxicam (Meloxicam 7.5 Mg Tab) 7.5 mg PO QDAY [facility] Last Admin: 11/09/21 09:34 Dose: 7.5 mg Propranolol HCl (Propranolol La 80 Mg Cap) 80 mg PO QDAY [facility] Last Admin: 11/08/21 09:34 Dose: 80 mg Risperidone (Risperidone 1 Mg Tab) 1 mg PO [facility] Last Admin: 11/08/21 21:43 Dose: 1 mg Results - Results Labs/Vitals: Last Vital Signs Temp 97.7 F 11/09/21 09:01 Pulse 67 11/09/21 09:01 Resp 16 11/09/21 09:01 BP 116/64 11/09/21 09:01 Pulse Ox 97 11/09/21 09:01
[2021-11-09] MEDS: amLODIPine 5 MG TAB PO SCH (10:33)
[2021-11-09] MEDS: PROPRANOLOL LA 80 MG CAP PO SCH (10:33)
[2021-11-09] MEDS: LISINOPRIL 10 MG TAB PO SCH (10:34)
[2021-11-09] MEDS: clonazePAM 0.5 MG TAB PO SCH ×4 (11:13→21:56)
[2021-11-09] MEDS: ACETAMINOPHEN 325 MG TAB PO PRN (13:29)
[2021-11-09] MEDS: risperiDONE 1 MG TAB PO SCH (21:56)
[2021-11-10] MEDS: buPROPion XL 150 MG TAB PO SCH (09:08)
[2021-11-10] MEDS: cephALEXin 500 MG CAP PO SCH ×3 (09:08→20:27)
[2021-11-10] MEDS: LISINOPRIL 10 MG TAB PO SCH (09:09)
[2021-11-10] MEDS: FAMOTIDINE 20 MG TAB PO SCH ×2 (09:09→21:34)
[2021-11-10] MEDS: clonazePAM 0.5 MG TAB PO SCH ×4 (09:09→21:33)
[2021-11-10] MEDS: lamoTRIgine 25 MG TAB PO SCH ×2 (09:11→21:34)
[2021-11-10] MEDS: amLODIPine 5 MG TAB PO SCH (09:11)
[2021-11-10] MEDS: PROPRANOLOL LA 80 MG CAP PO SCH (09:12)
[2021-11-10] MEDS: MELOXICAM 7.5 MG TAB PO SCH (09:13)
[2021-11-10] MEDS: ESCITALOPRAM 10 MG TAB PO SCH (09:14)
--- NOTE | 2021-11-10 09:34 | Progress Note ---
Subjective Date of service: 11/10/21 Principal diagnosis: schizophrenia Subjective Comment: 11/10:The patient was seen today at breakfast. She reports doing ok but reports feeling anxious. She reports sleep and appetite as good. She denies any current suicidal/homicidal ideation and denies hallucinations. No changes made today 11/09: The patient was seen today. She is calm and cooperative. She reports doing ok; states sleep and appetite as good. She denies any current suicidal/homicidal ideation and denies hallucinations. 11/08: The patient was seen today. The patient presents with somatic issues. She is calm and cooperative. She reports feeling a little depressed. She denies any current suicidal/homicidal ideation and denies hallucinations. REVIEW OF SYSTEMS Constitutional: Negative for weight loss ENT: Negative for stridor Respiratory: Negative for cough or hemoptysis All other systems reviewed and are negative MENTAL STATUS General Appearance and Behavior: age appropriate, good eye contact, cooperative Cooperation: Cooperative Psychomotor Behavior: within normal limits Mood: anxious Affect and affective range: Congruent with stated mood Thought Process: goal directed Thought Content:reality oriented Speech: Normal volume and Regular rate and rhythm Suicidal Ideation: Denies Homicidal Ideation: Denies HI Hallucinations: Denies Impulse Control: intact Insight and Judgment: Limited Memory: Limited Attention: Distracted Orientation: alert and oriented Assessment Schizophrenia Generalized Anxiety Disorder Treatment Plan Patient will be admitted for inpatient psychiatric evaluation, medication adjustment and close monitoring The patient's behavior, mood, sleep and appetite will be closely monitored. Patient will be enrolled in individual and group therapeutic sessions and encouraged to attend. Patient will be provided with a safe and structured environment. Patient's physical health needs will be addressed by the Hospitalist. Hospitalist Consulted Labs including CBC, CMP, Lipid profile and Hemoglobin A1C ordered Social Assessment will be completed and the Claims Representative will work with patient and family to ensure a suitable and safe disposition Medication adjustment will be made as clinically indicated Continue Vistaril 25mg po q6h prn anxiety No changes made today. Usual Wellness Taoism/Preservation: - Start Trazodone 50 mg po QHS PRN The patient agreed on the treatment plan, understood the risk, benefit, alternative treatment, potential consequence of no treatment, and gave informed consent. Case staffed with Dr. Bull Medications and Allergies Medications and Allergies Allergies Allergy/AdvReac Type Severity Reaction Status Date / Time No Known Allergies Allergy Verified 11/06/21 01:39 Home Medications Medication Instructions Recorded Confirmed Last Taken Type Escitalopram [Lexapro] 10 mg PO DAILY 11/06/21 11/06/21 Unknown History Famotidine [Acid-Pep] 20 mg PO BID 11/06/21 11/06/21 Unknown History Meloxicam [Mobic] 7.5 mg PO QDAY 11/06/21 11/06/21 Unknown History Propranolol HCl [Inderal Xl] 80 mg PO DAILY 11/06/21 11/06/21 Unknown History amLODIPine [Norvasc] 5 mg PO DAILY 11/06/21 11/06/21 Unknown History buPROPion HCL [Bupropion Xl] 150 mg PO DAILY 11/06/21 11/06/21 Unknown History cephALEXin [Keflex] 500 mg PO TID 11/06/21 11/06/21 Unknown History clonazePAM [Klonopin] 1 mg PO QID 11/06/21 11/06/21 Unknown History lamoTRIgine [LaMICtal] 25 mg PO BID 11/06/21 11/06/21 Unknown History lisinopriL [Lisinopril] 10 mg PO DAILY 11/06/21 11/06/21 Unknown History risperiDONE [RisperDAL] 1 mg PO HS 11/06/21 11/06/21 Unknown History risperiDONE [RisperDAL] 1 mg PO 11/06/21 11/06/21 Unknown History Active Meds: Active Medications Acetaminophen (Acetaminophen 325 Mg Tab) 650 mg PO Q6H PRN PRN Reason: Pain, Mild (1-3) Last Admin: 11/09/21 13:29 Dose: 650 mg Amlodipine Besylate (Amlodipine 5 Mg Tab) 5 mg PO DAILY [facility] Last Admin: 11/10/21 09:11 Dose: 5 mg Bupropion HCl (Bupropion Xl 150 Mg Tab) 150 mg PO DAILY [facility] Last Admin: 11/10/21 09:08 Dose: 150 mg Cephalexin (Cephalexin 500 Mg Cap) 500 mg PO TID [facility]; Protocol Stop: 11/13/21 08:01 Last Admin: 11/10/21 09:08 Dose: 500 mg Clonazepam (Clonazepam 0.5 Mg Tab) 1 mg PO QID [facility] Last Admin: 11/10/21 09:09 Dose: 1 mg Escitalopram Oxalate (Escitalopram 10 Mg Tab) 10 mg PO DAILY [facility] Last Admin: 11/10/21 09:14 Dose: 10 mg Famotidine (Famotidine 20 Mg Tab) 20 mg PO BID [facility] Last Admin: 11/10/21 09:09 Dose: 20 mg Hydroxyzine Pamoate (Hydroxyzine Pamoate 25 Mg Cap) 25 mg PO Q6H PRN PRN Reason: Anxiety Last Admin: 11/08/21 11:16 Dose: 25 mg Lamotrigine (Lamotrigine 25 Mg Tab) 25 mg PO BID [facility] Last Admin: 11/10/21 09:11 Dose: 25 mg Lisinopril (Lisinopril 10 Mg Tab) 10 mg PO DAILY [facility] Last Admin: 11/10/21 09:09 Dose: 10 mg Meloxicam (Meloxicam 7.5 Mg Tab) 7.5 mg PO QDAY [facility] Last Admin: 11/10/21 09:13 Dose: 7.5 mg Propranolol HCl (Propranolol La 80 Mg Cap) 80 mg PO QDAY [facility] Last Admin: 11/10/21 09:12 Dose: 80 mg Risperidone (Risperidone 1 Mg Tab) 1 mg PO [facility] Last Admin: 11/09/21 21:56 Dose: 1 mg Results - Results Labs/Vitals: Last Vital Signs Temp 98.4 F 11/10/21 08:25 Pulse 89 11/10/21 09:12 Resp 24 11/10/21 08:25 BP 189/76 11/10/21 09:12 Pulse Ox 97 11/10/21 08:25
[2021-11-10] MEDS: ACETAMINOPHEN 325 MG TAB PO PRN (14:02)
--- NOTE | 2021-11-10 14:35 | Progress Note ---
Assessment and Plan - Patient Problems (1) Vascular dementia with behavior disturbance Current Visit: Yes Status: Acute Plan to address problem: Verbal prompting, verbal redirection, benzodiazepine therapy as clinically indicated. (2) Cerebral atherosclerosis Current Visit: Yes Status: Acute Plan to address problem: Risk factor reduction, antiplatelet therapy as clinically indicated. (3) Seizure disorder Current Visit: Yes Status: Acute Plan to address problem: Continue antiepileptic therapy, no seizure activity at this time, seizure precautions. (4) Hypertension Current Visit: Yes Status: Acute Qualifiers: Hypertension type: primary hypertension Qualified Code(s): I10 - Essential (primary) hypertension Plan to address problem: Monitor blood pressure every shift, continue medical management (5) Major depression Current Visit: Yes Status: Acute Plan to address problem: Continue medical management, supportive care. (6) Generalized anxiety disorder Current Visit: Yes Status: Acute Plan to address problem: Benzodiazepine therapy as clinically indicated. (7) Bipolar disorder Current Visit: Yes Status: Acute Plan to address problem: Continue medical management, supportive care. (8) Advance care planning Current Visit: Yes Status: Acute Plan to address problem: Disease education conducted, care plan discussed, diagnoses discussed, prognosis discussed, patient is full code, +30 minutes. (9) Preventative health care Current Visit: Yes Status: Acute Plan to address problem: Patient counseled regarding home safety, risk factor reduction, outpatient follow-up with primary care physician for all age and risk factor appropriate screening test. +30 minutes. History Interval history: 70 YO Female with Vascular Dementia with behavioral disturbance, Cerebral Atherosclerosis, HTN, Seizure Disorder, OA, MDD, CARYN, Bipolar Disorder admitted to [facility] for psychiatric stabilization. Patient seen and evaluated in the recreation room. Patient appears to be at baseline level of cognition and function. No reported nursing events. Hospitalist Physical - Constitutional Vitals: Temp Pulse Resp BP Pulse Ox 98.4 F 89 24 189/76 97 11/10/21 08:25 11/10/21 09:12 11/10/21 08:25 11/10/21 09:12 11/10/21 08:25 General appearance: Present: no acute distress, well-nourished - EENT Eyes: Present: PERRL ENT: hearing decreased - Neck Neck: Present: supple - Respiratory Respiratory effort: normal Respiratory: bilateral: diminished - Cardiovascular Rhythm: regular Heart Sounds: Present: S1 & S2 - Extremities Extremities: no ischemia Peripheral Pulses: within normal limits - Abdominal General gastrointestinal: soft, non-tender, non-distended - Integumentary Integumentary: Present: clear, dry - Psychiatric Psychiatric: cooperative - Neurologic Neurologic: CNII-XII intact Results Lloyd/IV: Voiding Method Toilet Active Medications - Current Medications Current Medications: Generic Name Dose Route Start Last Admin Trade Name Freq PRN Reason Stop Dose Admin Acetaminophen 650 mg 11/07/21 16:48 11/10/21 14:02 Acetaminophen 325 Mg Tab PO 650 mg Q6H PRN Administration Pain, Mild (1-3) Amlodipine Besylate 5 mg 11/07/21 10:00 11/10/21 09:11 Amlodipine 5 Mg Tab PO 5 mg DAILY [facility] Administration Bupropion HCl 150 mg 11/06/21 13:00 11/10/21 09:08 Bupropion Xl 150 Mg Tab PO 150 mg DAILY [facility] Administration Cephalexin 500 mg 11/06/21 14:00 11/10/21 14:02 Cephalexin 500 Mg Cap PO 11/13/21 08:01 500 mg TID [facility] Administration Protocol Clonazepam 1 mg 11/06/21 18:00 11/10/21 14:02 Clonazepam 0.5 Mg Tab PO 1 mg QID [facility] Administration Escitalopram Oxalate 10 mg 11/06/21 14:00 11/10/21 09:14 Escitalopram 10 Mg Tab PO 10 mg DAILY [facility] Administration Famotidine 20 mg 11/06/21 22:00 11/10/21 09:09 Famotidine 20 Mg Tab PO 20 mg BID [facility] Administration Hydroxyzine Pamoate 25 mg 11/07/21 10:00 11/08/21 11:16 Hydroxyzine Pamoate 25 Mg Cap PO 25 mg Q6H PRN Administration Anxiety Lamotrigine 25 mg 11/06/21 22:00 11/10/21 09:11 Lamotrigine 25 Mg Tab PO 25 mg BID [facility] Administration Lisinopril 10 mg 11/07/21 10:00 11/10/21 09:09 Lisinopril 10 Mg Tab PO 10 mg DAILY [facility] Administration Meloxicam 7.5 mg 11/07/21 10:00 11/10/21 09:13 Meloxicam 7.5 Mg Tab PO 7.5 mg QDAY [facility] Administration Propranolol HCl 80 mg 11/07/21 10:00 11/10/21 09:12 Propranolol La 80 Mg Cap PO 80 mg QDAY [facility] Administration Risperidone 1 mg 11/06/21 22:00 11/09/21 21:56 Risperidone 1 Mg Tab PO 1 mg HS [facility] Administration
[2021-11-10] MEDS: risperiDONE 1 MG TAB PO SCH (21:34)
--- NOTE | 2021-11-11 09:53 | Progress Note ---
Subjective Date of service: 11/11/21 Principal diagnosis: schizophrenia Subjective Comment: 11/11: The patient was seen today. She is labile; intermittent outburst and agitation. She reports sleep and appetite as good. She denies any current suicidal/homicidal ideation and denies hallucinations. 11/10:The patient was seen today at breakfast. She reports doing ok but reports feeling anxious. She reports sleep and appetite as good. She denies any current suicidal/homicidal ideation and denies hallucinations. No changes made today 11/09: The patient was seen today. She is calm and cooperative. She reports doing ok; states sleep and appetite as good. She denies any current suicidal/homicidal ideation and denies hallucinations. 11/08: The patient was seen today. The patient presents with somatic issues. She is calm and cooperative. She reports feeling a little depressed. She denies any current suicidal/homicidal ideation and denies hallucinations. REVIEW OF SYSTEMS Constitutional: Negative for weight loss ENT: Negative for stridor Respiratory: Negative for cough or hemoptysis All other systems reviewed and are negative MENTAL STATUS General Appearance and Behavior: age appropriate, good eye contact, cooperative Cooperation: Cooperative Psychomotor Behavior: within normal limits Mood: anxious, Affect and affective range: labile Thought Process: goal directed Thought Content:reality oriented Speech: Normal volume and Regular rate and rhythm Suicidal Ideation: Denies Homicidal Ideation: Denies HI Hallucinations: Denies Impulse Control: intact Insight and Judgment: Limited Memory: Limited Attention: Distracted Orientation: alert and oriented Assessment Schizophrenia Generalized Anxiety Disorder Treatment Plan Patient will be admitted for inpatient psychiatric evaluation, medication adjustment and close monitoring The patient's behavior, mood, sleep and appetite will be closely monitored. Patient will be enrolled in individual and group therapeutic sessions and encouraged to attend. Patient will be provided with a safe and structured environment. Patient's physical health needs will be addressed by the Hospitalist. Hospitalist Consulted Labs including CBC, CMP, Lipid profile and Hemoglobin A1C ordered Social Assessment will be completed and the Automatic Head Sawyer will work with patient and family to ensure a suitable and safe disposition Medication adjustment will be made as clinically indicated Continue Vistaril 25mg po q6h prn anxiety No changes made today. Usual Wellness Rastafarian/Preservation: - Start Trazodone 50 mg po QHS PRN The patient agreed on the treatment plan, understood the risk, benefit, alternative treatment, potential consequence of no treatment, and gave informed consent. Case staffed with Dr. Bull Medications and Allergies Medications and Allergies Allergies Allergy/AdvReac Type Severity Reaction Status Date / Time No Known Allergies Allergy Verified 11/06/21 01:39 Home Medications Medication Instructions Recorded Confirmed Last Taken Type Escitalopram [Lexapro] 10 mg PO DAILY 11/06/21 11/06/21 Unknown History Famotidine [Acid-Pep] 20 mg PO BID 11/06/21 11/06/21 Unknown History Meloxicam [Mobic] 7.5 mg PO QDAY 11/06/21 11/06/21 Unknown History Propranolol HCl [Inderal Xl] 80 mg PO DAILY 11/06/21 11/06/21 Unknown History amLODIPine [Norvasc] 5 mg PO DAILY 11/06/21 11/06/21 Unknown History buPROPion HCL [Bupropion Xl] 150 mg PO DAILY 11/06/21 11/06/21 Unknown History cephALEXin [Keflex] 500 mg PO TID 11/06/21 11/06/21 Unknown History clonazePAM [Klonopin] 1 mg PO QID 11/06/21 11/06/21 Unknown History lamoTRIgine [LaMICtal] 25 mg PO BID 11/06/21 11/06/21 Unknown History lisinopriL [Lisinopril] 10 mg PO DAILY 11/06/21 11/06/21 Unknown History risperiDONE [RisperDAL] 1 mg PO HS 11/06/21 11/06/21 Unknown History risperiDONE [RisperDAL] 1 mg PO HS 11/06/21 11/06/21 Unknown History Active Meds: Active Medications Acetaminophen (Acetaminophen 325 Mg Tab) 650 mg PO Q6H PRN PRN Reason: Pain, Mild (1-3) Last Admin: 11/10/21 14:02 Dose: 650 mg Amlodipine Besylate (Amlodipine 5 Mg Tab) 5 mg PO DAILY [facility] Last Admin: 11/10/21 09:11 Dose: 5 mg Bupropion HCl (Bupropion Xl 150 Mg Tab) 150 mg PO DAILY [facility] Last Admin: 11/10/21 09:08 Dose: 150 mg Cephalexin (Cephalexin 500 Mg Cap) 500 mg PO TID [facility]; Protocol Stop: 11/13/21 08:01 Last Admin: 11/10/21 20:27 Dose: 500 mg Clonazepam (Clonazepam 0.5 Mg Tab) 1 mg PO QID [facility] Last Admin: 11/10/21 21:33 Dose: 1 mg Escitalopram Oxalate (Escitalopram 10 Mg Tab) 10 mg PO DAILY [facility] Last Admin: 11/10/21 09:14 Dose: 10 mg Famotidine (Famotidine 20 Mg Tab) 20 mg PO BID [facility] Last Admin: 11/10/21 21:34 Dose: 20 mg Hydroxyzine Pamoate (Hydroxyzine Pamoate 25 Mg Cap) 25 mg PO Q6H PRN PRN Reason: Anxiety Last Admin: 11/08/21 11:16 Dose: 25 mg Lamotrigine (Lamotrigine 25 Mg Tab) 25 mg PO BID [facility] Last Admin: 11/10/21 21:34 Dose: 25 mg Lisinopril (Lisinopril 10 Mg Tab) 10 mg PO DAILY [facility] Last Admin: 11/10/21 09:09 Dose: 10 mg Meloxicam (Meloxicam 7.5 Mg Tab) 7.5 mg PO QDAY [facility] Last Admin: 11/10/21 09:13 Dose: 7.5 mg Propranolol HCl (Propranolol La 80 Mg Cap) 80 mg PO QDAY [facility] Last Admin: 11/10/21 09:12 Dose: 80 mg Risperidone (Risperidone 1 Mg Tab) 1 mg PO HS [facility] Last Admin: 11/10/21 21:34 Dose: 1 mg Results - Results Labs/Vitals: Last Vital Signs Temp 98.4 F 11/10/21 08:25 Pulse 89 11/10/21 09:12 Resp 24 11/10/21 08:25 BP 189/76 11/10/21 09:12 Pulse Ox 97 11/10/21 08:25
[2021-11-11] MEDS: lamoTRIgine 25 MG TAB PO SCH ×2 (10:02→21:25)
[2021-11-11] MEDS: ESCITALOPRAM 10 MG TAB PO SCH (10:02)
[2021-11-11] MEDS: LISINOPRIL 10 MG TAB PO SCH (10:02)
[2021-11-11] MEDS: clonazePAM 0.5 MG TAB PO SCH ×4 (10:03→21:25)
[2021-11-11] MEDS: amLODIPine 5 MG TAB PO SCH (10:05)
[2021-11-11] MEDS: cephALEXin 500 MG CAP PO SCH ×3 (10:05→20:53)
[2021-11-11] MEDS: FAMOTIDINE 20 MG TAB PO SCH ×2 (10:05→21:25)
[2021-11-11] MEDS: buPROPion XL 150 MG TAB PO SCH (10:06)
[2021-11-11] MEDS: PROPRANOLOL LA 80 MG CAP PO SCH (10:06)
[2021-11-11] MEDS: MELOXICAM 7.5 MG TAB PO SCH (10:07)
[2021-11-11] MEDS: ACETAMINOPHEN 325 MG TAB PO PRN (14:02)
[2021-11-11] MEDS: risperiDONE 1 MG TAB PO SCH (21:25)
--- NOTE | 2021-11-12 09:38 | Progress Note ---
Subjective Date of service: 11/12/21 Principal diagnosis: schizophrenia Subjective Comment: 11/12:The patient was seen today. She states she is doing well but continues to have somatic issues. She denies any current suicidal/homicidal ideation and denies hallucinations. 11/11: The patient was seen today. She is labile; intermittent outburst and agitation. She reports sleep and appetite as good. She denies any current suicidal/homicidal ideation and denies hallucinations. 11/10:The patient was seen today at breakfast. She reports doing ok but reports feeling anxious. She reports sleep and appetite as good. She denies any current suicidal/homicidal ideation and denies hallucinations. No changes made today 11/09: The patient was seen today. She is calm and cooperative. She reports doing ok; states sleep and appetite as good. She denies any current suicidal/homicidal ideation and denies hallucinations. 11/08: The patient was seen today. The patient presents with somatic issues. She is calm and cooperative. She reports feeling a little depressed. She denies any current suicidal/homicidal ideation and denies hallucinations. REVIEW OF SYSTEMS Constitutional: Negative for weight loss ENT: Negative for stridor Respiratory: Negative for cough or hemoptysis All other systems reviewed and are negative MENTAL STATUS General Appearance and Behavior: age appropriate, good eye contact, cooperative Cooperation: Cooperative Psychomotor Behavior: within normal limits Mood: anxious, Affect and affective range: labile Thought Process: goal directed Thought Content:reality oriented Speech: Normal volume and Regular rate and rhythm Suicidal Ideation: Denies Homicidal Ideation: Denies HI Hallucinations: Denies Impulse Control: intact Insight and Judgment: Limited Memory: Limited Attention: Distracted Orientation: alert and oriented Assessment Schizophrenia Generalized Anxiety Disorder Treatment Plan Patient will be admitted for inpatient psychiatric evaluation, medication adjustment and close monitoring The patient's behavior, mood, sleep and appetite will be closely monitored. Patient will be enrolled in individual and group therapeutic sessions and encouraged to attend. Patient will be provided with a safe and structured environment. Patient's physical health needs will be addressed by the Hospitalist. Hospitalist Consulted Labs including CBC, CMP, Lipid profile and Hemoglobin A1C ordered Social Assessment will be completed and the Counter Sales Representative will work with patient and family to ensure a suitable and safe disposition Medication adjustment will be made as clinically indicated Continue Vistaril 25mg po q6h prn anxiety No changes made today. Usual Wellness Hoahaoism/Preservation: - Start Trazodone 50 mg po QHS PRN The patient agreed on the treatment plan, understood the risk, benefit, alternative treatment, potential consequence of no treatment, and gave informed consent. Case staffed with Dr. Bull Medications and Allergies Medications and Allergies Allergies Allergy/AdvReac Type Severity Reaction Status Date / Time No Known Allergies Allergy Verified 11/06/21 01:39 Home Medications Medication Instructions Recorded Confirmed Last Taken Type Escitalopram [Lexapro] 10 mg PO DAILY 11/06/21 11/06/21 Unknown History Famotidine [Acid-Pep] 20 mg PO BID 11/06/21 11/06/21 Unknown History Meloxicam [Mobic] 7.5 mg PO QDAY 11/06/21 11/06/21 Unknown History Propranolol HCl [Inderal Xl] 80 mg PO DAILY 11/06/21 11/06/21 Unknown History amLODIPine [Norvasc] 5 mg PO DAILY 11/06/21 11/06/21 Unknown History buPROPion HCL [Bupropion Xl] 150 mg PO DAILY 11/06/21 11/06/21 Unknown History cephALEXin [Keflex] 500 mg PO TID 11/06/21 11/06/21 Unknown History clonazePAM [Klonopin] 1 mg PO QID 11/06/21 11/06/21 Unknown History lamoTRIgine [LaMICtal] 25 mg PO BID 11/06/21 11/06/21 Unknown History lisinopriL [Lisinopril] 10 mg PO DAILY 11/06/21 11/06/21 Unknown History risperiDONE [RisperDAL] 1 mg PO HS 11/06/21 11/06/21 Unknown History risperiDONE [RisperDAL] 1 mg PO HS 11/06/21 11/06/21 Unknown History Active Meds: Active Medications Acetaminophen (Acetaminophen 325 Mg Tab) 650 mg PO Q6H PRN PRN Reason: Pain, Mild (1-3) Last Admin: 11/11/21 14:02 Dose: 650 mg Amlodipine Besylate (Amlodipine 5 Mg Tab) 5 mg PO DAILY [facility] Last Admin: 11/11/21 10:05 Dose: 5 mg Bupropion HCl (Bupropion Xl 150 Mg Tab) 150 mg PO DAILY [facility] Last Admin: 11/11/21 10:06 Dose: 150 mg Cephalexin (Cephalexin 500 Mg Cap) 500 mg PO TID [facility]; Protocol Stop: 11/13/21 08:01 Last Admin: 11/11/21 20:53 Dose: 500 mg Clonazepam (Clonazepam 0.5 Mg Tab) 1 mg PO QID [facility] Last Admin: 11/11/21 21:25 Dose: 1 mg Escitalopram Oxalate (Escitalopram 10 Mg Tab) 10 mg PO DAILY [facility] Last Admin: 11/11/21 10:02 Dose: 10 mg Famotidine (Famotidine 20 Mg Tab) 20 mg PO BID [facility] Last Admin: 11/11/21 21:25 Dose: 20 mg Hydroxyzine Pamoate (Hydroxyzine Pamoate 25 Mg Cap) 25 mg PO Q6H PRN PRN Reason: Anxiety Last Admin: 11/08/21 11:16 Dose: 25 mg Lamotrigine (Lamotrigine 25 Mg Tab) 25 mg PO BID [facility] Last Admin: 11/11/21 21:25 Dose: 25 mg Lisinopril (Lisinopril 10 Mg Tab) 10 mg PO DAILY [facility] Last Admin: 11/11/21 10:02 Dose: 10 mg Meloxicam (Meloxicam 7.5 Mg Tab) 7.5 mg PO QDAY [facility] Last Admin: 11/11/21 10:07 Dose: 7.5 mg Propranolol HCl (Propranolol La 80 Mg Cap) 80 mg PO QDAY [facility] Last Admin: 11/11/21 10:06 Dose: 80 mg Risperidone (Risperidone 1 Mg Tab) 1 mg PO HS [facility] Last Admin: 11/11/21 21:25 Dose: 1 mg Results - Results Labs/Vitals: Last Vital Signs Temp 98.0 F 11/11/21 08:52 Pulse 89 11/11/21 10:06 Resp 18 11/11/21 08:52 BP 189/76 11/11/21 10:06 Pulse Ox 92 11/11/21 08:52
[2021-11-12] MEDS: ESCITALOPRAM 10 MG TAB PO SCH (09:40)
[2021-11-12] MEDS: MELOXICAM 7.5 MG TAB PO SCH (09:40)
[2021-11-12] MEDS: clonazePAM 0.5 MG TAB PO SCH ×4 (09:41→22:33)
[2021-11-12] MEDS: cephALEXin 500 MG CAP PO SCH ×3 (09:43→20:22)
[2021-11-12] MEDS: FAMOTIDINE 20 MG TAB PO SCH ×2 (09:43→21:12)
[2021-11-12] MEDS: lamoTRIgine 25 MG TAB PO SCH ×2 (09:44→21:12)
[2021-11-12] MEDS: ACETAMINOPHEN 325 MG TAB PO PRN (09:44)
[2021-11-12] MEDS: buPROPion XL 150 MG TAB PO SCH (09:44)
[2021-11-12] MEDS: amLODIPine 5 MG TAB PO SCH (09:45)
[2021-11-12] MEDS: LISINOPRIL 10 MG TAB PO SCH (09:46)
[2021-11-12] MEDS: PROPRANOLOL LA 80 MG CAP PO SCH (09:46)
[2021-11-12] MEDS: risperiDONE 1 MG TAB PO SCH (21:12)
--- NOTE | 2021-11-13 07:49 | Progress Note ---
Assessment and Plan Assessment and Plan - Patient Problems (1) Vascular dementia with behavior disturbance Current Visit: Yes Status: Acute Plan to address problem: Verbal prompting, verbal redirection, benzodiazepine therapy as clinically indicated. (2) Cerebral atherosclerosis Current Visit: Yes Status: Acute Plan to address problem: Risk factor reduction, antiplatelet therapy as clinically indicated. (3) Seizure disorder Current Visit: Yes Status: Acute Plan to address problem: Continue antiepileptic therapy, no seizure activity at this time, seizure precautions. (4) Hypertension Current Visit: Yes Status: Acute Qualifiers: Hypertension type: primary hypertension Qualified Code(s): I10 - Essential (primary) hypertension Plan to address problem: Monitor blood pressure every shift, continue medical management (5) Major depression Current Visit: Yes Status: Acute Plan to address problem: Continue medical management, supportive care. (6) Generalized anxiety disorder Current Visit: Yes Status: Acute Plan to address problem: Benzodiazepine therapy as clinically indicated. (7) Bipolar disorder Current Visit: Yes Status: Acute Plan to address problem: Continue medical management, supportive care. (8) Advance care planning Current Visit: Yes Status: Acute Plan to address problem: Disease education conducted, care plan discussed, diagnoses discussed, prognosis discussed, patient is full code, +30 minutes. (9) Preventative health care Current Visit: Yes Status: Acute Plan to address problem: Patient counseled regarding home safety, risk factor reduction, outpatient follow-up with primary care physician for all age and risk factor appropriate screening test. +30 minutes. Subjective Date of service: 11/11/21 Principal diagnosis: schizophrenia Interval history: History Interval history: 70 YO Female with Vascular Dementia with behavioral disturbance, Cerebral Atherosclerosis, HTN, Seizure Disorder, OA, MDD, CARYN, Bipolar Disorder admitted to [facility] for psychiatric stabilization. Patient seen and evaluated in the recreation room. Patient appears to be at baseline level of cognition and function. No reported nursing events. Objective - Constitutional General appearance: Present: no acute distress, well-nourished - EENT Eyes: PERRL, EOM intact ENT: hearing intact, clear oral mucosa Ears: bilateral: normal - Neck Neck: supple, normal ROM - Respiratory Respiratory effort: normal Respiratory: bilateral: CTA - Breasts Breasts: normal - Cardiovascular Heart rate: 78 Rhythm: regular Heart Sounds: Present: S1 & S2. Absent: gallop, rub Extremities: pulses intact, No edema, normal color, Full ROM - Gastrointestinal General gastrointestinal: Present: soft, non-tender, non-distended, normal bowel sounds - Genitourinary Female genitourinary: normal - Integumentary Integumentary: clear, warm, dry - Musculoskeletal Musculoskeletal: 1, strength equal bilaterally - Neurologic Neurologic: moves all extremities - Psychiatric Psychiatric: memory intact, appropriate mood/affect, intact judgment & insight
[2021-11-13] MEDS: MELOXICAM 7.5 MG TAB PO SCH (09:33)
[2021-11-13] MEDS: lamoTRIgine 25 MG TAB PO SCH ×2 (09:33→21:02)
[2021-11-13] MEDS: amLODIPine 5 MG TAB PO SCH (09:33)
[2021-11-13] MEDS: buPROPion XL 150 MG TAB PO SCH (09:33)
[2021-11-13] MEDS: clonazePAM 0.5 MG TAB PO SCH ×4 (09:33→21:01)
[2021-11-13] MEDS: FAMOTIDINE 20 MG TAB PO SCH ×2 (09:33→21:01)
[2021-11-13] MEDS: LISINOPRIL 10 MG TAB PO SCH (09:33)
[2021-11-13] MEDS: PROPRANOLOL LA 80 MG CAP PO SCH (09:33)
[2021-11-13] MEDS: cephALEXin 500 MG CAP PO SCH (09:33)
--- NOTE | 2021-11-13 09:34 | Progress Note ---
Subjective Date of service: 11/13/21 Principal diagnosis: schizophrenia Subjective Comment: 11/13:The patient was seen today. She reports not doing well today, states she is tired and nervous. She denies any current suicidal/homicidal ideation and denies hallucinations. 11/12:The patient was seen today. She states she is doing well but continues to have somatic issues. She denies any current suicidal/homicidal ideation and denies hallucinations. 11/11: The patient was seen today. She is labile; intermittent outburst and agitation. She reports sleep and appetite as good. She denies any current suicidal/homicidal ideation and denies hallucinations. 11/10:The patient was seen today at breakfast. She reports doing ok but reports feeling anxious. She reports sleep and appetite as good. She denies any current suicidal/homicidal ideation and denies hallucinations. No changes made today 11/09: The patient was seen today. She is calm and cooperative. She reports doing ok; states sleep and appetite as good. She denies any current suicidal/homicidal ideation and denies hallucinations. 11/08: The patient was seen today. The patient presents with somatic issues. She is calm and cooperative. She reports feeling a little depressed. She denies any current suicidal/homicidal ideation and denies hallucinations. REVIEW OF SYSTEMS Constitutional: Negative for weight loss ENT: Negative for stridor Respiratory: Negative for cough or hemoptysis All other systems reviewed and are negative MENTAL STATUS General Appearance and Behavior: age appropriate, good eye contact, cooperative Cooperation: Cooperative Psychomotor Behavior: within normal limits Mood: anxious Affect and affective range: labile Thought Process: goal directed Thought Content:reality oriented Speech: Normal volume and Regular rate and rhythm Suicidal Ideation: Denies Homicidal Ideation: Denies HI Hallucinations: Denies Impulse Control: intact Insight and Judgment: Limited Memory: Limited Attention: Distracted Orientation: alert and oriented Assessment Schizophrenia Generalized Anxiety Disorder Treatment Plan Patient will be admitted for inpatient psychiatric evaluation, medication adjustment and close monitoring The patient's behavior, mood, sleep and appetite will be closely monitored. Patient will be enrolled in individual and group therapeutic sessions and encouraged to attend. Patient will be provided with a safe and structured environment. Patient's physical health needs will be addressed by the Hospitalist. Hospitalist Consulted Labs including CBC, CMP, Lipid profile and Hemoglobin A1C ordered Social Assessment will be completed and the Stock Hanger will work with patient and family to ensure a suitable and safe disposition Medication adjustment will be made as clinically indicated Continue Vistaril 25mg po q6h prn anxiety No changes made today. Usual Wellness Voodoo/Preservation: - Start Trazodone 50 mg po QHS PRN The patient agreed on the treatment plan, understood the risk, benefit, alternative treatment, potential consequence of no treatment, and gave informed consent. Case staffed with Dr. Bull Medications and Allergies Medications and Allergies Allergies Allergy/AdvReac Type Severity Reaction Status Date / Time No Known Allergies Allergy Verified 11/06/21 01:39 Home Medications Medication Instructions Recorded Confirmed Last Taken Type Escitalopram [Lexapro] 10 mg PO DAILY 11/06/21 11/06/21 Unknown History Famotidine [Acid-Pep] 20 mg PO BID 11/06/21 11/06/21 Unknown History Meloxicam [Mobic] 7.5 mg PO QDAY 11/06/21 11/06/21 Unknown History Propranolol HCl [Inderal Xl] 80 mg PO DAILY 11/06/21 11/06/21 Unknown History amLODIPine [Norvasc] 5 mg PO DAILY 11/06/21 11/06/21 Unknown History buPROPion HCL [Bupropion Xl] 150 mg PO DAILY 11/06/21 11/06/21 Unknown History cephALEXin [Keflex] 500 mg PO TID 11/06/21 11/06/21 Unknown History clonazePAM [Klonopin] 1 mg PO QID 11/06/21 11/06/21 Unknown History lamoTRIgine [LaMICtal] 25 mg PO BID 11/06/21 11/06/21 Unknown History lisinopriL [Lisinopril] 10 mg PO DAILY 11/06/21 11/06/21 Unknown History risperiDONE [RisperDAL] 1 mg PO HS 11/06/21 11/06/21 Unknown History risperiDONE [RisperDAL] 1 mg PO HS 11/06/21 11/06/21 Unknown History Active Meds: Active Medications Acetaminophen (Acetaminophen 325 Mg Tab) 650 mg PO Q6H PRN PRN Reason: Pain, Mild (1-3) Last Admin: 11/12/21 09:44 Dose: 650 mg Amlodipine Besylate (Amlodipine 5 Mg Tab) 5 mg PO DAILY [facility] Last Admin: 11/13/21 09:33 Dose: 5 mg Bupropion HCl (Bupropion Xl 150 Mg Tab) 150 mg PO DAILY [facility] Last Admin: 11/13/21 09:33 Dose: 150 mg Clonazepam (Clonazepam 0.5 Mg Tab) 1 mg PO QID [facility] Last Admin: 11/13/21 09:33 Dose: 1 mg Escitalopram Oxalate (Escitalopram 10 Mg Tab) 10 mg PO DAILY [facility] Last Admin: 11/12/21 09:40 Dose: 10 mg Famotidine (Famotidine 20 Mg Tab) 20 mg PO BID [facility] Last Admin: 11/13/21 09:33 Dose: 20 mg Hydroxyzine Pamoate (Hydroxyzine Pamoate 25 Mg Cap) 25 mg PO Q6H PRN PRN Reason: Anxiety Last Admin: 11/08/21 11:16 Dose: 25 mg Lamotrigine (Lamotrigine 25 Mg Tab) 25 mg PO BID [facility] Last Admin: 11/13/21 09:33 Dose: 25 mg Lisinopril (Lisinopril 10 Mg Tab) 10 mg PO DAILY [facility] Last Admin: 11/13/21 09:33 Dose: 10 mg Meloxicam (Meloxicam 7.5 Mg Tab) 7.5 mg PO QDAY [facility] Last Admin: 11/13/21 09:33 Dose: 7.5 mg Propranolol HCl (Propranolol La 80 Mg Cap) 80 mg PO QDAY [facility] Last Admin: 11/13/21 09:33 Dose: 80 mg Risperidone (Risperidone 1 Mg Tab) 1 mg PO HS [facility] Last Admin: 11/12/21 21:12 Dose: 1 mg Results - Results Labs/Vitals: Last Vital Signs Temp 99.2 F 11/13/21 09:25 Pulse 99 H 11/13/21 09:25 Resp 18 11/13/21 09:25 BP 148/83 11/13/21 09:25 Pulse Ox 95 11/13/21 09:25
[2021-11-13] MEDS: ESCITALOPRAM 10 MG TAB PO SCH (09:36)
[2021-11-13] MEDS: ACETAMINOPHEN 325 MG TAB PO PRN (20:19)
[2021-11-13] MEDS: risperiDONE 1 MG TAB PO SCH (21:01)
--- NOTE | 2021-11-14 09:22 | Progress Note ---
Subjective Date of service: 11/14/21 Principal diagnosis: schizophrenia Subjective Comment: 11/14:The patient was seen in her room. She states she is doing ok. She reports sleep and appetite as good. She denies any current suicidal/homicidal ideation and denies hallucinations. No changes made today. 11/13:The patient was seen today. She reports not doing well today, states she is tired and nervous. She denies any current suicidal/homicidal ideation and denies hallucinations. 11/12:The patient was seen today. She states she is doing well but continues to have somatic issues. She denies any current suicidal/homicidal ideation and denies hallucinations. 11/11: The patient was seen today. She is labile; intermittent outburst and agitation. She reports sleep and appetite as good. She denies any current suicidal/homicidal ideation and denies hallucinations. 11/10:The patient was seen today at breakfast. She reports doing ok but reports feeling anxious. She reports sleep and appetite as good. She denies any current suicidal/homicidal ideation and denies hallucinations. No changes made today 11/09: The patient was seen today. She is calm and cooperative. She reports doing ok; states sleep and appetite as good. She denies any current suicidal/homicidal ideation and denies hallucinations. 11/08: The patient was seen today. The patient presents with somatic issues. She is calm and cooperative. She reports feeling a little depressed. She denies any current suicidal/homicidal ideation and denies hallucinations. REVIEW OF SYSTEMS Constitutional: Negative for weight loss ENT: Negative for stridor Respiratory: Negative for cough or hemoptysis All other systems reviewed and are negative MENTAL STATUS General Appearance and Behavior: age appropriate, good eye contact, cooperative Cooperation: Cooperative Psychomotor Behavior: within normal limits Mood:"ok" Affect and affective range: labile Thought Process: goal directed Thought Content: :reality oriented Speech: Normal volume and Regular rate and rhythm Suicidal Ideation: Denies Homicidal Ideation: Denies HI Hallucinations: Denies Impulse Control: intact Insight and Judgment: Limited Memory: Limited Attention: Distracted Orientation: alert and oriented Assessment Schizophrenia Generalized Anxiety Disorder Treatment Plan Patient will be admitted for inpatient psychiatric evaluation, medication adjustment and close monitoring The patient's behavior, mood, sleep and appetite will be closely monitored. Patient will be enrolled in individual and group therapeutic sessions and encouraged to attend. Patient will be provided with a safe and structured environment. Patient's physical health needs will be addressed by the Hospitalist. Hospitalist Consulted Labs including CBC, CMP, Lipid profile and Hemoglobin A1C ordered Social Assessment will be completed and the Direct Mail Manager will work with patient and family to ensure a suitable and safe disposition Medication adjustment will be made as clinically indicated Continue Vistaril 25mg po q6h prn anxiety No changes made today. Usual Wellness Temple/Preservation: - Start Trazodone 50 mg po QHS PRN The patient agreed on the treatment plan, understood the risk, benefit, alternative treatment, potential consequence of no treatment, and gave informed consent. Case staffed with Dr. Bull Medications and Allergies Medications and Allergies Allergies Allergy/AdvReac Type Severity Reaction Status Date / Time No Known Allergies Allergy Verified 11/06/21 01:39 Home Medications Medication Instructions Recorded Confirmed Last Taken Type Escitalopram [Lexapro] 10 mg PO DAILY 11/06/21 11/06/21 Unknown History Famotidine [Acid-Pep] 20 mg PO BID 11/06/21 11/06/21 Unknown History Meloxicam [Mobic] 7.5 mg PO QDAY 11/06/21 11/06/21 Unknown History Propranolol HCl [Inderal Xl] 80 mg PO DAILY 11/06/21 11/06/21 Unknown History amLODIPine [Norvasc] 5 mg PO DAILY 11/06/21 11/06/21 Unknown History buPROPion HCL [Bupropion Xl] 150 mg PO DAILY 11/06/21 11/06/21 Unknown History cephALEXin [Keflex] 500 mg PO TID 11/06/21 11/06/21 Unknown History clonazePAM [Klonopin] 1 mg PO QID 11/06/21 11/06/21 Unknown History lamoTRIgine [LaMICtal] 25 mg PO BID 11/06/21 11/06/21 Unknown History lisinopriL [Lisinopril] 10 mg PO DAILY 11/06/21 11/06/21 Unknown History risperiDONE [RisperDAL] 1 mg PO HS 11/06/21 11/06/21 Unknown History risperiDONE [RisperDAL] 1 mg PO HS 11/06/21 11/06/21 Unknown History Active Meds: Active Medications Acetaminophen (Acetaminophen 325 Mg Tab) 650 mg PO Q6H PRN PRN Reason: Pain, Mild (1-3) Last Admin: 11/13/21 20:19 Dose: 650 mg Amlodipine Besylate (Amlodipine 5 Mg Tab) 5 mg PO DAILY [facility] Last Admin: 11/13/21 09:33 Dose: 5 mg Bupropion HCl (Bupropion Xl 150 Mg Tab) 150 mg PO DAILY [facility] Last Admin: 11/13/21 09:33 Dose: 150 mg Clonazepam (Clonazepam 0.5 Mg Tab) 1 mg PO QID [facility] Last Admin: 11/13/21 21:01 Dose: 1 mg Escitalopram Oxalate (Escitalopram 10 Mg Tab) 10 mg PO DAILY [facility] Last Admin: 11/13/21 09:36 Dose: 10 mg Famotidine (Famotidine 20 Mg Tab) 20 mg PO BID [facility] Last Admin: 11/13/21 21:01 Dose: 20 mg Hydroxyzine Pamoate (Hydroxyzine Pamoate 25 Mg Cap) 25 mg PO Q6H PRN PRN Reason: Anxiety Last Admin: 11/08/21 11:16 Dose: 25 mg Lamotrigine (Lamotrigine 25 Mg Tab) 25 mg PO BID [facility] Last Admin: 11/13/21 21:02 Dose: 25 mg Lisinopril (Lisinopril 10 Mg Tab) 10 mg PO DAILY [facility] Last Admin: 11/13/21 09:33 Dose: 10 mg Meloxicam (Meloxicam 7.5 Mg Tab) 7.5 mg PO QDAY [facility] Last Admin: 11/13/21 09:33 Dose: 7.5 mg Propranolol HCl (Propranolol La 80 Mg Cap) 80 mg PO QDAY [facility] Last Admin: 11/13/21 09:33 Dose: 80 mg Risperidone (Risperidone 1 Mg Tab) 1 mg PO [facility] Last Admin: 11/13/21 21:01 Dose: 1 mg Results - Results Labs/Vitals: Last Vital Signs Temp 98.6 F 11/13/21 19:14 Pulse 68 11/13/21 19:14 Resp 18 11/13/21 20:19 BP 146/70 11/13/21 19:14 Pulse Ox 94 11/13/21 19:14
[2021-11-14] MEDS: lamoTRIgine 25 MG TAB PO SCH ×2 (09:51→21:15)
[2021-11-14] MEDS: PROPRANOLOL LA 80 MG CAP PO SCH (09:51)
[2021-11-14] MEDS: MELOXICAM 7.5 MG TAB PO SCH (09:52)
[2021-11-14] MEDS: LISINOPRIL 10 MG TAB PO SCH (09:53)
[2021-11-14] MEDS: buPROPion XL 150 MG TAB PO SCH (09:53)
[2021-11-14] MEDS: FAMOTIDINE 20 MG TAB PO SCH ×2 (09:53→21:15)
[2021-11-14] MEDS: ESCITALOPRAM 10 MG TAB PO SCH (09:53)
[2021-11-14] MEDS: ACETAMINOPHEN 325 MG TAB PO PRN (09:54)
[2021-11-14] MEDS: clonazePAM 0.5 MG TAB PO SCH ×4 (09:55→21:14)
[2021-11-14] MEDS: amLODIPine 5 MG TAB PO SCH (09:55)
[2021-11-14] MEDS: risperiDONE 1 MG TAB PO SCH (21:15)
[2021-11-15] MEDS: buPROPion XL 150 MG TAB PO SCH (09:10)
[2021-11-15] MEDS: amLODIPine 5 MG TAB PO SCH (09:10)
[2021-11-15] MEDS: clonazePAM 0.5 MG TAB PO SCH ×4 (09:10→21:47)
[2021-11-15] MEDS: lamoTRIgine 25 MG TAB PO SCH ×2 (09:11→21:47)
[2021-11-15] MEDS: ESCITALOPRAM 10 MG TAB PO SCH (09:11)
[2021-11-15] MEDS: PROPRANOLOL LA 80 MG CAP PO SCH (09:11)
[2021-11-15] MEDS: MELOXICAM 7.5 MG TAB PO SCH (09:11)
[2021-11-15] MEDS: LISINOPRIL 10 MG TAB PO SCH (09:11)
[2021-11-15] MEDS: FAMOTIDINE 20 MG TAB PO SCH ×2 (09:11→21:47)
--- NOTE | 2021-11-15 10:52 | Progress Note ---
Subjective Date of service: 11/15/21 Principal diagnosis: schizophrenia Subjective Comment: The patient was seen today. She says she is doing well. She denies SI/HI or hallucinations. The patient is awaiting placement to ensure safety and continuity of mental wellness. REVIEW OF SYSTEMS Constitutional: Negative for weight loss ENT: Negative for stridor Respiratory: Negative for cough or hemoptysis All other systems reviewed and are negative MENTAL STATUS General Appearance and Behavior: age appropriate, good eye contact, cooperative, anxious Cooperation: Cooperative Psychomotor Behavior: within normal limits Mood: depressed, anxious Affect and affective range: Congruent with stated mood, tearful Thought Process: goal directed Thought Content: None Speech: Normal volume and Regular rate and rhythm Suicidal Ideation: Denies Homicidal Ideation: Denies HI Hallucinations: Denies Impulse Control: intact Insight and Judgment: Limited Memory: Limited Attention: Distracted Orientation: alert and oriented Assessment Schizophrenia Generalized Anxiety Disorder Treatment Plan Patient will be admitted for inpatient psychiatric evaluation, medication adjustment and close monitoring The patient's behavior, mood, sleep and appetite will be closely monitored. Patient will be enrolled in individual and group therapeutic sessions and encouraged to attend. Patient will be provided with a safe and structured environment. Patient's physical health needs will be addressed by the Hospitalist. Hospitalist Consulted Labs including CBC, CMP, Lipid profile and Hemoglobin A1C ordered Social Assessment will be completed and the Architectural Engineer will work with patient and family to ensure a suitable and safe disposition Medication adjustment will be made as clinically indicated Continue current meds Usual Wellness Temple/Preservation: - Start Trazodone 50 mg po QHS PRN The patient agreed on the treatment plan, understood the risk, benefit, alternative treatment, potential consequence of no treatment, and gave informed consent. Case staffed with Dr. Bull Medications and Allergies Allergies Allergy/AdvReac Type Severity Reaction Status Date / Time No Known Allergies Allergy Verified 11/06/21 01:39 Home Medications Medication Instructions Recorded Confirmed Last Taken Type Escitalopram [Lexapro] 10 mg PO DAILY 11/06/21 11/06/21 Unknown History Famotidine [Acid-Pep] 20 mg PO BID 11/06/21 11/06/21 Unknown History Meloxicam [Mobic] 7.5 mg PO QDAY 11/06/21 11/06/21 Unknown History Propranolol HCl [Inderal Xl] 80 mg PO DAILY 11/06/21 11/06/21 Unknown History amLODIPine [Norvasc] 5 mg PO DAILY 11/06/21 11/06/21 Unknown History buPROPion HCL [Bupropion Xl] 150 mg PO DAILY 11/06/21 11/06/21 Unknown History cephALEXin [Keflex] 500 mg PO TID 11/06/21 11/06/21 Unknown History clonazePAM [Klonopin] 1 mg PO QID 11/06/21 11/06/21 Unknown History lamoTRIgine [LaMICtal] 25 mg PO BID 11/06/21 11/06/21 Unknown History lisinopriL [Lisinopril] 10 mg PO DAILY 11/06/21 11/06/21 Unknown History risperiDONE [RisperDAL] 1 mg PO HS 11/06/21 11/06/21 Unknown History risperiDONE [RisperDAL] 1 mg PO HS 11/06/21 11/06/21 Unknown History Active Meds: Active Medications Acetaminophen (Acetaminophen 325 Mg Tab) 650 mg PO Q6H PRN PRN Reason: Pain, Mild (1-3) Last Admin: 11/14/21 09:54 Dose: 650 mg Amlodipine Besylate (Amlodipine 5 Mg Tab) 5 mg PO DAILY [facility] Last Admin: 11/15/21 09:10 Dose: 5 mg Bupropion HCl (Bupropion Xl 150 Mg Tab) 150 mg PO DAILY [facility] Last Admin: 11/15/21 09:10 Dose: 150 mg Clonazepam (Clonazepam 0.5 Mg Tab) 1 mg PO QID [facility] Last Admin: 11/15/21 09:10 Dose: 1 mg Escitalopram Oxalate (Escitalopram 10 Mg Tab) 10 mg PO DAILY [facility] Last Admin: 11/15/21 09:11 Dose: 10 mg Famotidine (Famotidine 20 Mg Tab) 20 mg PO BID [facility] Last Admin: 11/15/21 09:11 Dose: 20 mg Hydroxyzine Pamoate (Hydroxyzine Pamoate 25 Mg Cap) 25 mg PO Q6H PRN PRN Reason: Anxiety Last Admin: 11/08/21 11:16 Dose: 25 mg Lamotrigine (Lamotrigine 25 Mg Tab) 25 mg PO BID [facility] Last Admin: 11/15/21 09:11 Dose: 25 mg Lisinopril (Lisinopril 10 Mg Tab) 10 mg PO DAILY [facility] Last Admin: 11/15/21 09:11 Dose: 10 mg Meloxicam (Meloxicam 7.5 Mg Tab) 7.5 mg PO QDAY [facility] Last Admin: 11/15/21 09:11 Dose: 7.5 mg Propranolol HCl (Propranolol La 80 Mg Cap) 80 mg PO QDAY [facility] Last Admin: 11/15/21 09:11 Dose: 80 mg Risperidone (Risperidone 1 Mg Tab) 1 mg PO [facility] Last Admin: 11/14/21 21:15 Dose: 1 mg Results - Results Labs/Vitals: Last Vital Signs Temp 97.9 F 11/15/21 07:21 Pulse 61 11/15/21 07:21 Resp 18 11/15/21 09:11 BP 135/60 11/15/21 07:21 Pulse Ox 96 11/15/21 07:21
[2021-11-15] MEDS: ACETAMINOPHEN 325 MG TAB PO PRN (15:35)
[2021-11-15] MEDS: risperiDONE 1 MG TAB PO SCH (21:47)
--- NOTE | 2021-11-16 08:50 | Progress Note ---
Subjective Date of service: 11/16/21 Principal diagnosis: schizophrenia Subjective Comment: The patient was seen today. She is sitting in the dayroom. She says she is doing well. She denies SI/HI or hallucinations. The patient is awaiting placement to ensure safety and continuity of mental wellness. REVIEW OF SYSTEMS Constitutional: Negative for weight loss ENT: Negative for stridor Respiratory: Negative for cough or hemoptysis All other systems reviewed and are negative MENTAL STATUS General Appearance and Behavior: age appropriate, good eye contact, cooperative, anxious Cooperation: Cooperative Psychomotor Behavior: within normal limits Mood: depressed, anxious Affect and affective range: Congruent with stated mood, tearful Thought Process: goal directed Thought Content: None Speech: Normal volume and Regular rate and rhythm Suicidal Ideation: Denies Homicidal Ideation: Denies HI Hallucinations: Denies Impulse Control: intact Insight and Judgment: Limited Memory: Limited Attention: Distracted Orientation: alert and oriented Assessment Schizophrenia Generalized Anxiety Disorder Treatment Plan Patient will be admitted for inpatient psychiatric evaluation, medication adjustment and close monitoring The patient's behavior, mood, sleep and appetite will be closely monitored. Patient will be enrolled in individual and group therapeutic sessions and encouraged to attend. Patient will be provided with a safe and structured environment. Patient's physical health needs will be addressed by the Hospitalist. Ho spitalist Consulted Labs including CBC, CMP, Lipid profile and Hemoglobin A1C ordered Social Assessment will be completed and the Vehicle Body Sander will work with patient and family to ensure a suitable and safe disposition Medication adjustment will be made as clinically indicated Continue current meds Usual Wellness Alevism/Preservation: - Start Trazodone 50 mg po QHS PRN The patient agreed on the treatment plan, understood the risk, benefit, alternative treatment, potential consequence of no treatment, and gave informed consent. Case staffed with Dr. Bull Medications and Allergies Allergies Allergy/AdvReac Type Severity Reaction Status Date / Time No Known Allergies Allergy Verified 11/06/21 01:39 Home Medications Medication Instructions Recorded Confirmed Last Taken Type Escitalopram [Lexapro] 10 mg PO DAILY 11/06/21 11/06/21 Unknown History Famotidine [Acid-Pep] 20 mg PO BID 11/06/21 11/06/21 Unknown History Meloxicam [Mobic] 7.5 mg PO QDAY 11/06/21 11/06/21 Unknown History Propranolol HCl [Inderal Xl] 80 mg PO DAILY 11/06/21 11/06/21 Unknown History amLODIPine [Norvasc] 5 mg PO DAILY 11/06/21 11/06/21 Unknown History buPROPion HCL [Bupropion Xl] 150 mg PO DAILY 11/06/21 11/06/21 Unknown History cephALEXin [Keflex] 500 mg PO TID 11/06/21 11/06/21 Unknown History clonazePAM [Klonopin] 1 mg PO QID 11/06/21 11/06/21 Unknown History lamoTRIgine [LaMICtal] 25 mg PO BID 11/06/21 11/06/21 Unknown History lisinopriL [Lisinopril] 10 mg PO DAILY 11/06/21 11/06/21 Unknown History risperiDONE [RisperDAL] 1 mg PO HS 11/06/21 11/06/21 Unknown History risperiDONE [RisperDAL] 1 mg PO HS 11/06/21 11/06/21 Unknown History Active Meds: Active Medications Acetaminophen (Acetaminophen 325 Mg Tab) 650 mg PO Q6H PRN PRN Reason: Pain, Mild (1-3) Last Admin: 11/15/21 15:35 Dose: 650 mg Amlodipine Besylate (Amlodipine 5 Mg Tab) 5 mg PO DAILY [facility] Last Admin: 11/15/21 09:10 Dose: 5 mg Bupropion HCl (Bupropion Xl 150 Mg Tab) 150 mg PO DAILY [facility] Last Admin: 11/15/21 09:10 Dose: 150 mg Clonazepam (Clonazepam 0.5 Mg Tab) 1 mg PO QID [facility] Last Admin: 11/15/21 21:47 Dose: 1 mg Escitalopram Oxalate (Escitalopram 10 Mg Tab) 10 mg PO DAILY [facility] Last Admin: 11/15/21 09:11 Dose: 10 mg Famotidine (Famotidine 20 Mg Tab) 20 mg PO BID [facility] Last Admin: 11/15/21 21:47 Dose: 20 mg Hydroxyzine Pamoate (Hydroxyzine Pamoate 25 Mg Cap) 25 mg PO Q6H PRN PRN Reason: Anxiety Last Admin: 11/08/21 11:16 Dose: 25 mg Lamotrigine (Lamotrigine 25 Mg Tab) 25 mg PO BID [facility] Last Admin: 11/15/21 21:47 Dose: 25 mg Lisinopril (Lisinopril 10 Mg Tab) 10 mg PO DAILY [facility] Last Admin: 11/15/21 09:11 Dose: 10 mg Meloxicam (Meloxicam 7.5 Mg Tab) 7.5 mg PO QDAY [facility] Last Admin: 11/15/21 09:11 Dose: 7.5 mg Propranolol HCl (Propranolol La 80 Mg Cap) 80 mg PO QDAY [facility] Last Admin: 11/15/21 09:11 Dose: 80 mg Risperidone (Risperidone 1 Mg Tab) 1 mg PO [facility] Last Admin: 11/15/21 21:47 Dose: 1 mg Results - Results Labs/Vitals: Last Vital Signs Temp 98.4 F 11/15/21 20:34 Pulse 67 11/15/21 20:34 Resp 16 11/15/21 20:34 BP 129/62 11/15/21 20:34 Pulse Ox 96 11/15/21 20:34
[2021-11-16] MEDS: MELOXICAM 7.5 MG TAB PO SCH ×2 (08:51→10:31)
[2021-11-16] MEDS: lamoTRIgine 25 MG TAB PO SCH ×3 (08:52→21:18)
[2021-11-16] MEDS: amLODIPine 5 MG TAB PO SCH ×2 (08:52→10:29)
[2021-11-16] MEDS: FAMOTIDINE 20 MG TAB PO SCH ×3 (08:52→21:18)
[2021-11-16] MEDS: ESCITALOPRAM 10 MG TAB PO SCH ×2 (08:53→10:30)
[2021-11-16] MEDS: buPROPion XL 150 MG TAB PO SCH ×2 (08:53→10:31)
[2021-11-16] MEDS: LISINOPRIL 10 MG TAB PO SCH ×2 (08:53→10:31)
[2021-11-16] MEDS: PROPRANOLOL LA 80 MG CAP PO SCH ×2 (08:53→10:29)
[2021-11-16] MEDS: clonazePAM 0.5 MG TAB PO SCH ×4 (09:38→21:18)
[2021-11-16] MEDS: ACETAMINOPHEN 325 MG TAB PO PRN ×2 (11:09→21:18)
[2021-11-16] MEDS: risperiDONE 1 MG TAB PO SCH (21:18)
--- NOTE | 2021-11-17 07:08 | Progress Note ---
Assessment and Plan Assessment and Plan - Patient Problems (1) Vascular dementia with behavior disturbance Current Visit: Yes Status: Acute Plan to address problem: Verbal prompting, verbal redirection, benzodiazepine therapy as clinically indicated. (2) Cerebral atherosclerosis Current Visit: Yes Status: Acute Plan to address problem: Risk factor reduction, antiplatelet therapy as clinically indicated. (3) Seizure disorder Current Visit: Yes Status: Acute Plan to address problem: Continue antiepileptic therapy, no seizure activity at this time, seizure precautions. (4) Hypertension Current Visit: Yes Status: Acute Qualifiers: Hypertension type: primary hypertension Qualified Code(s): I10 - Essential (primary) hypertension Plan to address problem: Monitor blood pressure every shift, continue medical management (5) Major depression Current Visit: Yes Status: Acute Plan to address problem: Continue medical management, supportive care. (6) Generalized anxiety disorder Current Visit: Yes Status: Acute Plan to address problem: Benzodiazepine therapy as clinically indicated. (7) Bipolar disorder Current Visit: Yes Status: Acute Plan to address problem: Continue medical management, supportive care. (8) Advance care planning Current Visit: Yes Status: Acute Plan to address problem: Disease education conducted, care plan discussed, diagnoses discussed, prognosis discussed, patient is full code, +30 minutes. (9) Preventative health care Current Visit: Yes Status: Acute Plan to address problem: Patient counseled regarding home safety, risk factor reduction, outpatient follow-up with primary care physician for all age and risk factor appropriate screening test. +30 minutes. Subjective Date of service: 11/15/21 Principal diagnosis: schizophrenia Interval history: History Interval history: 70 YO Female with Vascular Dementia with behavioral disturbance, Cerebral Atherosclerosis, HTN, Seizure Disorder, OA, MDD, CARYN, Bipolar Disorder admitted to [facility] for psychiatric stabilization. Patient seen and evaluated in the recreation room. Patient appears to be at baseline level of cognition and function. No reported nursing events. Objective - Constitutional Vitals: Vital Signs - 12hr 11/16/21 11/16/21 20:52 21:18 Temperature 98.3 F Pulse Rate 60 Respiratory 16 18 Rate Blood Pressure 135/71 [Left] O2 Sat by Pulse 94 Oximetry General appearance: Present: no acute distress, well-nourished - EENT Eyes: PERRL, EOM intact ENT: hearing intact, clear oral mucosa Ears: bilateral: normal - Neck Neck: supple, normal ROM - Respiratory Respiratory effort: normal Respiratory: bilateral: CTA - Breasts Breasts: normal - Cardiovascular Heart rate: 78 Rhythm: regular Heart Sounds: Present: S1 & S2. Absent: gallop, rub Extremities: pulses intact, No edema, normal color, Full ROM - Gastrointestinal General gastrointestinal: Present: soft, non-tender, non-distended, normal bowel sounds - Genitourinary Female genitourinary: normal - Integumentary Integumentary: clear, warm, dry - Musculoskeletal Musculoskeletal: 1, strength equal bilaterally - Neurologic Neurologic: moves all extremities - Psychiatric Psychiatric: memory intact, appropriate mood/affect, intact judgment & insight
[2021-11-17] MEDS: ESCITALOPRAM 10 MG TAB PO SCH (10:25)
[2021-11-17] MEDS: buPROPion XL 150 MG TAB PO SCH (10:25)
[2021-11-17] MEDS: LISINOPRIL 10 MG TAB PO SCH (10:25)
[2021-11-17] MEDS: clonazePAM 0.5 MG TAB PO SCH ×4 (10:26→21:57)
[2021-11-17] MEDS: amLODIPine 5 MG TAB PO SCH (10:26)
[2021-11-17] MEDS: lamoTRIgine 25 MG TAB PO SCH ×2 (10:26→21:58)
[2021-11-17] MEDS: FAMOTIDINE 20 MG TAB PO SCH ×2 (10:26→21:58)
[2021-11-17] MEDS: PROPRANOLOL LA 80 MG CAP PO SCH (10:27)
[2021-11-17] MEDS: MELOXICAM 7.5 MG TAB PO SCH (10:30)
--- NOTE | 2021-11-17 11:44 | Progress Note ---
Assessment and Plan - Patient Problems (1) Vascular dementia with behavior disturbance Current Visit: Yes Status: Acute Plan to address problem: Verbal prompting, verbal redirection, benzodiazepine therapy as clinically indicated. (2) Cerebral atherosclerosis Current Visit: Yes Status: Acute Plan to address problem: Risk factor reduction, antiplatelet therapy as clinically indicated. (3) Seizure disorder Current Visit: Yes Status: Acute Plan to address problem: Continue antiepileptic therapy, no seizure activity at this time, seizure precautions. (4) Hypertension Current Visit: Yes Status: Acute Qualifiers: Hypertension type: primary hypertension Qualified Code(s): I10 - Essential (primary) hypertension Plan to address problem: Monitor blood pressure every shift, continue medical management (5) Major depression Current Visit: Yes Status: Acute Plan to address problem: Continue medical management, supportive care. (6) Generalized anxiety disorder Current Visit: Yes Status: Acute Plan to address problem: Benzodiazepine therapy as clinically indicated. (7) Bipolar disorder Current Visit: Yes Status: Acute Plan to address problem: Continue medical management, supportive care. (8) Advance care planning Current Visit: Yes Status: Acute Plan to address problem: Disease education conducted, care plan discussed, diagnoses discussed, prognosis discussed, patient is full code, +30 minutes. (9) Preventative health care Current Visit: Yes Status: Acute Plan to address problem: Patient counseled regarding home safety, risk factor reduction, outpatient follow-up with primary care physician for all age and risk factor appropriate screening test. +30 minutes. History Interval history: 70 YO Female with Vascular Dementia with behavioral disturbance, Cerebral Atherosclerosis, HTN, Seizure Disorder, OA, MDD, CARYN, Bipolar Disorder admitted to [facility] for psychiatric stabilization. Patient seen and evaluated in the recreation room. Patient appears to be at baseline level of cognition and function. No reported nursing events. Hospitalist Physical - Constitutional Vitals: Temp Pulse Resp BP Pulse Ox 98.3 F 72 18 149/76 93 11/16/21 20:52 11/17/21 10:27 11/16/21 21:18 11/17/21 10:27 11/17/21 09:29 General appearance: Present: no acute distress, well-nourished - EENT Eyes: Present: PERRL ENT: hearing decreased - Neck Neck: Present: supple - Respiratory Respiratory effort: normal Respiratory: bilateral: diminished - Cardiovascular Rhythm: regular Heart Sounds: Present: S1 & S2 - Extremities Extremities: no ischemia Peripheral Pulses: within normal limits - Abdominal General gastrointestinal: soft, non-tender, non-distended - Integumentary Integumentary: Present: clear, dry - Psychiatric Psychiatric: cooperative - Neurologic Neurologic: CNII-XII intact Results - Labs CBC & Chem 7: 11/17/21 07:10 11/17/21 11:04 Lloyd/IV: Voiding Method Toilet Active Medications - Current Medications Current Medications: Generic Name Dose Route Start Last Admin Trade Name Freq PRN Reason Stop Dose Admin Acetaminophen 650 mg 11/07/21 16:48 11/16/21 21:18 Acetaminophen 325 Mg Tab PO 650 mg Q6H PRN Administration Pain, Mild (1-3) Amlodipine Besylate 5 mg 11/07/21 10:00 11/17/21 10:26 Amlodipine 5 Mg Tab PO 5 mg DAILY IRMA Administration Bupropion HCl 150 mg 11/06/21 13:00 11/17/21 10:25 Bupropion Xl 150 Mg Tab PO 150 mg DAILY IRMA Administration Clonazepam 1 mg 11/06/21 18:00 11/17/21 10:26 Clonazepam 0.5 Mg Tab PO 1 mg QID IRMA Administration Escitalopram Oxalate 10 mg 11/06/21 14:00 11/17/21 10:25 Escitalopram 10 Mg Tab PO 10 mg DAILY IRMA Administration Famotidine 20 mg 11/06/21 22:00 11/17/21 10:26 Famotidine 20 Mg Tab PO 20 mg BID IRMA Administration Hydroxyzine Pamoate 25 mg 11/07/21 10:00 11/08/21 11:16 Hydroxyzine Pamoate 25 Mg Cap PO 25 mg Q6H PRN Administration Anxiety Lamotrigine 25 mg 11/06/21 22:00 11/17/21 10:26 Lamotrigine 25 Mg Tab PO 25 mg BID IRMA Administration Lisinopril 10 mg 11/07/21 10:00 11/17/21 10:25 Lisinopril 10 Mg Tab PO 10 mg DAILY IRMA Administration Meloxicam 7.5 mg 11/07/21 10:00 11/17/21 10:30 Meloxicam 7.5 Mg Tab PO 7.5 mg QDAY IRMA Administration Propranolol HCl 80 mg 11/07/21 10:00 11/17/21 10:27 Propranolol La 80 Mg Cap PO 80 mg QDAY IRMA Administration Risperidone 1 mg 11/06/21 22:00 11/16/21 21:18 Risperidone 1 Mg Tab PO 1 mg HS IRMA Administration Nutrition/Malnutrition Assess - Dietary Evaluation Nutrition/Malnutrition Findings: Nutrition Notes Start: 11/13/21 15:29 Freq: Status: Active Protocol: Document 11/13/21 15:29 NINA (Rec: 11/13/21 15:41 NINA [id number]) Nutrition Notes Need for Assessment generated from: LOS Initial or Follow up Assessment Current Diagnosis Hypertension Other Pertinent Diagnosis Dementia w/Behavioral Disturbance, Seizure, Cerebral Atherosclerosis, Anxie Current Diet Regular Diet (since D 11/06). Labs/Tests 11/13: N/A. Pertinent Medications 11/13: Nutritionally unremarkable. 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 Weight Status Appropriate Subjective/Other Information RD consult for LOS assessment. Pt's PO intake of meals has been Good (100%) and well tolerated, according to ADL notes. Pt is on Room Air, O2 saturation @ 100%, according to Vital Signs notes. Percent of energy/protein needs met: Prescribed Regular Diet provides for energy/protein needs (2,289 Kcal/89 g) during LOS. Burn Absent Trauma Absent GI Symptoms None Food Allergy No Skin Integrity/Comment Assessmernt WNL. Current % PO Good (75-100%) Minimum of two criteria No Fluid Accumulation N/A Reduced Accounting Administrator Strength N/A (non-severe) Protein-Calorie Malnutrition N\A #2 Nutrition Diagnosis No nutrition diagnosis at this time Is patient on ventilator? No Is Patient Ambulatory and/or Out of Bed Yes REE-([facility]-ambulatory/OOB) [ [id number] [id number]] Calculation Used for Recommendations Kcal/kg Additional Notes Protein: 1-1.2 g/Kg ABW; 73-88 g/day. Fluids: 1 ml/Kcal, or as per MD. Nutrition Intervention Change Diet Order: Continue Regular Diet as tolerated. Revisit per MD consult or patient Sign Off request: Additional Comments Continue monitoring food tolerance, %PO intake of meals , and BM.
[2021-11-17 11:54] LABS: Basophils # (Auto) 0.1 K/mm3 (0.0-0.1); Basophils % (Auto) 0.7 % (0.0-1.8); Eosinophils # (Auto) 0.2 K/mm3 (0.0-0.4); Eosinophils % (Auto) 2.2 % (0.0-4.3); Hematocrit 39.5 % (30.3-42.9); Hemoglobin 13.2 gm/dl (10.1-14.3); Lymphocytes # (Auto) 2.2 K/mm3 (1.2-5.4); Lymphocytes % (Auto) 32.4 % (13.4-35.0); Mean Corpuscular HGB Conc 34 % (30-34); Mean Corpuscular Volume 87 fl (79-97); Monocytes # (Auto) 0.5 K/mm3 (0.0-0.8); Monocytes % (Auto) 6.8 % (0.0-7.3); Platelet Count 275 K/mm3 (140-440); Red Blood Count 4.57 M/mm3 (3.65-5.03); Red Cell Distribution Width 14.1 % (13.2-15.2)
[2021-11-17 12:06] LABS: BUN/Creatinine Ratio 20; Blood Urea Nitrogen 14 mg/dL (7-17); Calcium 9.5 mg/dL (8.4-10.2); Hemolysis Index 2
--- NOTE | 2021-11-17 13:07 | Progress Note ---
Subjective Date of service: 11/17/21 Principal diagnosis: schizophrenia Subjective Comment: The patient was seen today. She is in her room. The patient says she's doing okay. She says she slept good. She denies SI/HI or hallucinations. She says her back is hurting. REVIEW OF SYSTEMS Constitutional: Negative for weight loss ENT: Negative for stridor Respiratory: Negative for cough or hemoptysis All other systems reviewed and are negative MENTAL STATUS General Appearance and Behavior: age appropriate, good eye contact, cooperative, anxious Cooperation: Cooperative Psychomotor Behavior: within normal limits Mood: depressed, anxious Affect and affective range: Congruent with stated mood, tearful Thought Process: goal directed Thought Content: None Speech: Normal volume and Regular rate and rhythm Suicidal Ideation: Denies Homicidal Ideation: Denies HI Hallucinations: Denies Impulse Control: intact Insight and Judgment: Limited Memory: Limited Attention: Distracted Orientation: alert and oriented Assessment Schizophrenia Generalized Anxiety Disorder Treatment Plan Patient will be admitted for inpatient psychiatric evaluation, medication adjustment and close monitoring The patient's behavior, mood, sleep and appetite will be closely monitored. Patient will be enrolled in individual and group therapeutic sessions and encouraged to attend. Patient will be provided with a safe and structured environment. Patient's physical health needs will be addressed by the Hospitalist. Hospitalist Consulted Labs including CBC, CMP, Lipid profile and Hemoglobin A1C ordered Social Assessment will be completed and the Irrigator Gravity Flow will work with patient and family to ensure a suitable and safe disposition Medication adjustment will be made as clinically indicated Continue current meds Usual Wellness Nondenominational/Preservation: - Start Trazodone 50 mg po QHS PRN The patient agreed on the treatment plan, understood the risk, benefit, alternative treatment, potential consequence of no treatment, and gave informed consent. Case staffed with Dr. Bull Medications and Allergies Allergies Allergy/AdvReac Type Severity Reaction Status Date / Time No Known Allergies Allergy Verified 11/06/21 01:39 Home Medications Medication Instructions Recorded Confirmed Last Taken Type Escitalopram [Lexapro] 10 mg PO DAILY 11/06/21 11/06/21 Unknown History Famotidine [Acid-Pep] 20 mg PO BID 11/06/21 11/06/21 Unknown History Meloxicam [Mobic] 7.5 mg PO QDAY 11/06/21 11/06/21 Unknown History Propranolol HCl [Inderal Xl] 80 mg PO DAILY 11/06/21 11/06/21 Unknown History amLODIPine [Norvasc] 5 mg PO DAILY 11/06/21 11/06/21 Unknown History buPROPion HCL [Bupropion Xl] 150 mg PO DAILY 11/06/21 11/06/21 Unknown History cephALEXin [Keflex] 500 mg PO TID 11/06/21 11/06/21 Unknown History clonazePAM [Klonopin] 1 mg PO QID 11/06/21 11/06/21 Unknown History lamoTRIgine [LaMICtal] 25 mg PO BID 11/06/21 11/06/21 Unknown History lisinopriL [Lisinopril] 10 mg PO DAILY 11/06/21 11/06/21 Unknown History risperiDONE [RisperDAL] 1 mg PO HS 11/06/21 11/06/21 Unknown History risperiDONE [RisperDAL] 1 mg PO HS 11/06/21 11/06/21 Unknown History Active Meds: Active Medications Acetaminophen (Acetaminophen 325 Mg Tab) 650 mg PO Q6H PRN PRN Reason: Pain, Mild (1-3) Last Admin: 11/16/21 21:18 Dose: 650 mg Amlodipine Besylate (Amlodipine 5 Mg Tab) 5 mg PO DAILY [facility] Last Admin: 11/17/21 10:26 Dose: 5 mg Bupropion HCl (Bupropion Xl 150 Mg Tab) 150 mg PO DAILY [facility] Last Admin: 11/17/21 10:25 Dose: 150 mg Clonazepam (Clonazepam 0.5 Mg Tab) 1 mg PO QID [facility] Last Admin: 11/17/21 10:26 Dose: 1 mg Escitalopram Oxalate (Escitalopram 10 Mg Tab) 10 mg PO DAILY [facility] Last Admin: 11/17/21 10:25 Dose: 10 mg Famotidine (Famotidine 20 Mg Tab) 20 mg PO BID [facility] Last Admin: 11/17/21 10:26 Dose: 20 mg Hydroxyzine Pamoate (Hydroxyzine Pamoate 25 Mg Cap) 25 mg PO Q6H PRN PRN Reason: Anxiety Last Admin: 11/08/21 11:16 Dose: 25 mg Lamotrigine (Lamotrigine 25 Mg Tab) 25 mg PO BID [facility] Last Admin: 11/17/21 10:26 Dose: 25 mg Lisinopril (Lisinopril 10 Mg Tab) 10 mg PO DAILY [facility] Last Admin: 11/17/21 10:25 Dose: 10 mg Meloxicam (Meloxicam 7.5 Mg Tab) 7.5 mg PO QDAY [facility] Last Admin: 11/17/21 10:30 Dose: 7.5 mg Propranolol HCl (Propranolol La 80 Mg Cap) 80 mg PO QDAY [facility] Last Admin: 11/17/21 10:27 Dose: 80 mg Risperidone (Risperidone 1 Mg Tab) 1 mg PO HS [facility] Last Admin: 11/16/21 21:18 Dose: 1 mg Results - Results Labs/Vitals: Laboratory Last Values WBC 6.8 K/mm3 (4.5-11.0) 11/17/21 07:10 RBC 4.57 M/mm3 (3.65-5.03) 11/17/21 07:10 Hgb 13.2 gm/dl (10.1-14.3) 11/17/21 07:10 Hct 39.5 % (30.3-42.9) 11/17/21 07:10 MCV 87 fl (79-97) 11/17/21 07:10 MCH 29 pg (28-32) 11/17/21 07:10 MCHC 34 % (30-34) 11/17/21 07:10 RDW 14.1 % (13.2-15.2) 11/17/21 07:10 Plt Count 275 K/mm3 (140-440) 11/17/21 07:10 Lymph % (Auto) 32.4 % (13.4-35.0) 11/17/21 07:10 [place] % (Auto) 6.8 % (0.0-7.3) 11/17/21 07:10 Eos % (Auto) 2.2 % (0.0-4.3) 11/17/21 07:10 Baso % (Auto) 0.7 % (0.0-1.8) 11/17/21 07:10 Lymph # (Auto) 2.2 K/mm3 (1.2-5.4) 11/17/21 07:10 [place] # (Auto) 0.5 K/mm3 (0.0-0.8) 11/17/21 07:10 Eos # (Auto) 0.2 K/mm3 (0.0-0.4) 11/17/21 07:10 Baso # (Auto) 0.1 K/mm3 (0.0-0.1) 11/17/21 07:10 Seg Neutrophils % 57.9 % (40.0-70.0) 11/17/21 07:10 Seg Neutrophils # 3.9 K/mm3 (1.8-7.7) 11/17/21 07:10 Sodium 141 mmol/L (137-145) 11/17/21 11:04 Potassium 4.1 mmol/L (3.6-5.0) 11/17/21 11:04 Chloride 98.9 mmol/L (98-107) 11/17/21 11:04 Carbon Dioxide 31 mmol/L (22-30) H 11/17/21 11:04 Anion Gap 15 mmol/L 11/17/21 11:04 BUN 14 mg/dL (7-17) 11/17/21 11:04 Creatinine 0.7 mg/dL (0.6-1.2) 11/17/21 11:04 Estimated GFR > 60 ml/min 11/17/21 11:04 BUN/Creatinine Ratio 20 % 11/17/21 11:04 Glucose 136 mg/dL (65-100) H 11/17/21 11:04 Calcium 9.5 mg/dL (8.4-10.2) 11/17/21 11:04 Last Vital Signs Temp 98.3 F 11/16/21 20:52 Pulse 72 11/17/21 10:27 Resp 18 11/16/21 21:18 BP 149/76 11/17/21 10:27 Pulse Ox 93 11/17/21 09:29
[2021-11-17] MEDS: risperiDONE 1 MG TAB PO SCH (21:58)
[2021-11-18] MEDS: buPROPion XL 150 MG TAB PO SCH (10:03)
[2021-11-18] MEDS: LISINOPRIL 10 MG TAB PO SCH (10:04)
[2021-11-18] MEDS: clonazePAM 0.5 MG TAB PO SCH ×4 (10:04→21:18)
[2021-11-18] MEDS: ESCITALOPRAM 10 MG TAB PO SCH (10:05)
[2021-11-18] MEDS: lamoTRIgine 25 MG TAB PO SCH ×2 (10:05→21:18)
[2021-11-18] MEDS: FAMOTIDINE 20 MG TAB PO SCH ×2 (10:05→21:19)
[2021-11-18] MEDS: amLODIPine 5 MG TAB PO SCH (10:05)
[2021-11-18] MEDS: PROPRANOLOL LA 80 MG CAP PO SCH (10:06)
[2021-11-18] MEDS: MELOXICAM 7.5 MG TAB PO SCH (10:07)
--- NOTE | 2021-11-18 12:05 | Progress Note ---
Subjective Date of service: 11/18/21 Principal diagnosis: schizophrenia Subjective Comment: The patient was seen today. She is in her room. The patient says she feels well. She denies SI/HI or hallucinations. She says her appetite is good. The patient says she was going to lay back down because she felt tired. She is awaiting placement. REVIEW OF SYSTEMS Constitutional: Negative for weight loss ENT: Negative for stridor Respiratory: Negative for cough or hemoptysis All other systems reviewed and are negative MENTAL STATUS General Appearance and Behavior: age appropriate, good eye contact, cooperative, anxious Cooperation: Cooperative Psychomotor Behavior: within normal limits Mood: depressed, anxious Affect and affective range: Congruent with stated mood, tearful Thought Process: goal directed Thought Content: None Speech: Normal volume and Regular rate and rhythm Suicidal Ideation: Denies Homicidal Ideation: Denies HI Hallucinations: Denies Impulse Control: intact Insight and Judgment: Limited Memory: Limited Attention: Distracted Orientation: alert and oriented Assessment Schizophrenia Generalized Anxiety Disorder Treatment Plan Patient will be admitted for inpatient psychiatric evaluation, medication adjustment and close monitoring The patient's behavior, mood, sleep and appetite will be closely monitored. Patient will be enrolled in individual and group therapeutic sessions and encouraged to attend. Patient will be provided with a safe and structured environment. Patient's physical health needs will be addressed by the Hospitalist. Hospitalist Consulted Labs including CBC, CMP, Lipid profile and Hemoglobin A1C ordered Social Assessment will be completed and the Accounting Manager Assistant Controller will work with patient and family to ensure a suitable and safe disposition Medication adjustment will be made as clinically indicated Continue current meds Usual Wellness Mormonism/Preservation: - Start Trazodone 50 mg po QHS PRN The patient agreed on the treatment plan, understood the risk, benefit, alternative treatment, potential consequence of no treatment, and gave informed consent. Case staffed with Dr. Bull Medications and Allergies Allergies Allergy/AdvReac Type Severity Reaction Status Date / Time No Known Allergies Allergy Verified 11/06/21 01:39 Home Medications Medication Instructions Recorded Confirmed Last Taken Type Escitalopram [Lexapro] 10 mg PO DAILY 11/06/21 11/06/21 Unknown History Famotidine [Acid-Pep] 20 mg PO BID 11/06/21 11/06/21 Unknown History Meloxicam [Mobic] 7.5 mg PO QDAY 11/06/21 11/06/21 Unknown History Propranolol HCl [Inderal Xl] 80 mg PO DAILY 11/06/21 11/06/21 Unknown History amLODIPine [Norvasc] 5 mg PO DAILY 11/06/21 11/06/21 Unknown History buPROPion HCL [Bupropion Xl] 150 mg PO DAILY 11/06/21 11/06/21 Unknown History cephALEXin [Keflex] 500 mg PO TID 11/06/21 11/06/21 Unknown History clonazePAM [Klonopin] 1 mg PO QID 11/06/21 11/06/21 Unknown History lamoTRIgine [LaMICtal] 25 mg PO BID 11/06/21 11/06/21 Unknown History lisinopriL [Lisinopril] 10 mg PO DAILY 11/06/21 11/06/21 Unknown History risperiDONE [RisperDAL] 1 mg PO HS 11/06/21 11/06/21 Unknown History risperiDONE [RisperDAL] 1 mg PO HS 11/06/21 11/06/21 Unknown History Active Meds: Active Medications Acetaminophen (Acetaminophen 325 Mg Tab) 650 mg PO Q6H PRN PRN Reason: Pain, Mild (1-3) Last Admin: 11/16/21 21:18 Dose: 650 mg Amlodipine Besylate (Amlodipine 5 Mg Tab) 5 mg PO DAILY [facility] Last Admin: 11/18/21 10:05 Dose: 5 mg Bupropion HCl (Bupropion Xl 150 Mg Tab) 150 mg PO DAILY [facility] Last Admin: 11/18/21 10:03 Dose: 150 mg Clonazepam (Clonazepam 0.5 Mg Tab) 1 mg PO QID [facility] Last Admin: 11/18/21 10:04 Dose: 1 mg Escitalopram Oxalate (Escitalopram 10 Mg Tab) 10 mg PO DAILY [facility] Last Admin: 11/18/21 10:05 Dose: 10 mg Famotidine (Famotidine 20 Mg Tab) 20 mg PO BID [facility] Last Admin: 11/18/21 10:05 Dose: 20 mg Hydroxyzine Pamoate (Hydroxyzine Pamoate 25 Mg Cap) 25 mg PO Q6H PRN PRN Reason: Anxiety Last Admin: 11/08/21 11:16 Dose: 25 mg Lamotrigine (Lamotrigine 25 Mg Tab) 25 mg PO BID [facility] Last Admin: 11/18/21 10:05 Dose: 25 mg Lisinopril (Lisinopril 10 Mg Tab) 10 mg PO DAILY [facility] Last Admin: 11/18/21 10:04 Dose: 10 mg Meloxicam (Meloxicam 7.5 Mg Tab) 7.5 mg PO QDAY [facility] Last Admin: 11/18/21 10:07 Dose: 7.5 mg Propranolol HCl (Propranolol La 80 Mg Cap) 80 mg PO QDAY [facility] Last Admin: 11/18/21 10:06 Dose: 80 mg Risperidone (Risperidone 1 Mg Tab) 1 mg PO [facility] Last Admin: 11/17/21 21:58 Dose: 1 mg Results - Results Labs/Vitals: Laboratory Last Values WBC 6.8 K/mm3 (4.5-11.0) 11/17/21 07:10 RBC 4.57 M/mm3 (3.65-5.03) 11/17/21 07:10 Hgb 13.2 gm/dl (10.1-14.3) 11/17/21 07:10 Hct 39.5 % (30.3-42.9) 11/17/21 07:10 MCV 87 fl (79-97) 11/17/21 07:10 MCH 29 pg (28-32) 11/17/21 07:10 MCHC 34 % (30-34) 11/17/21 07:10 RDW 14.1 % (13.2-15.2) 11/17/21 07:10 Plt Count 275 K/mm3 (140-440) 11/17/21 07:10 Lymph % (Auto) 32.4 % (13.4-35.0) 11/17/21 07:10 [place] % (Auto) 6.8 % (0.0-7.3) 11/17/21 07:10 Eos % (Auto) 2.2 % (0.0-4.3) 11/17/21 07:10 Baso % (Auto) 0.7 % (0.0-1.8) 11/17/21 07:10 Lymph # (Auto) 2.2 K/mm3 (1.2-5.4) 11/17/21 07:10 [place] # (Auto) 0.5 K/mm3 (0.0-0.8) 11/17/21 07:10 Eos # (Auto) 0.2 K/mm3 (0.0-0.4) 11/17/21 07:10 Baso # (Auto) 0.1 K/mm3 (0.0-0.1) 11/17/21 07:10 Seg Neutrophils % 57.9 % (40.0-70.0) 11/17/21 07:10 Seg Neutrophils # 3.9 K/mm3 (1.8-7.7) 11/17/21 07:10 Sodium 141 mmol/L (137-145) 11/17/21 11:04 Potassium 4.1 mmol/L (3.6-5.0) 11/17/21 11:04 Chloride 98.9 mmol/L (98-107) 11/17/21 11:04 Carbon Dioxide 31 mmol/L (22-30) H 11/17/21 11:04 Anion Gap 15 mmol/L 11/17/21 11:04 BUN 14 mg/dL (7-17) 11/17/21 11:04 Creatinine 0.7 mg/dL (0.6-1.2) 11/17/21 11:04 Estimated GFR > 60 ml/min 11/17/21 11:04 BUN/Creatinine Ratio 20 % 11/17/21 11:04 Glucose 136 mg/dL (65-100) H 11/17/21 11:04 Calcium 9.5 mg/dL (8.4-10.2) 11/17/21 11:04 Last Vital Signs Temp 97.9 F 11/17/21 19:18 Pulse 60 11/18/21 10:06 Resp 17 11/17/21 19:18 BP 137/70 11/18/21 10:06 Pulse Ox 93 11/17/21 19:18
[2021-11-18] MEDS: ACETAMINOPHEN 325 MG TAB PO PRN (14:58)
[2021-11-18] MEDS: risperiDONE 1 MG TAB PO SCH (21:19)
--- NOTE | 2021-11-19 09:11 | Progress Note ---
Subjective Date of service: 11/19/21 Principal diagnosis: schizophrenia Subjective Comment: The patient was seen today. She is smiling and pleasant. She denies SI/HI or hallucinations of any kind, She is clear from psych and is awaiting placement. REVIEW OF SYSTEMS Constitutional: Negative for weight loss ENT: Negative for stridor Respiratory: Negative for cough or hemoptysis All other systems reviewed and are negative MENTAL STATUS General Appearance and Behavior: age appropriate, good eye contact, cooperative, anxious Cooperation: Cooperative Psychomotor Behavior: within normal limits Mood: depressed, anxious Affect and affective range: Congruent with stated mood, tearful Thought Process: goal directed Thought Content: None Speech: Normal volume and Regular rate and rhythm Suicidal Ideation: Denies Homicidal Ideation: Denies HI Hallucinations: Denies Impulse Control: intact Insight and Judgment: Limited Memory: Limited Attention: Distracted Orientation: alert and oriented Assessment Schizophrenia Generalized Anxiety Disorder Treatment Plan Patient will be admitted for inpatient psychiatric evaluation, medication adjustment and close monitoring The patient's behavior, mood, sleep and appetite will be closely monitored. Patient will be enrolled in individual and group therapeutic sessions and encouraged to attend. Patient will be provided with a safe and structured environment. Patient's physical health needs will be addressed by the Hospitalist. Hospitalist Consulted Labs including CBC, CMP, Lipid profile and Hemoglobin A1C ordered Social Assessment will be completed and the Computer Meteorologist will work with patient and family to ensure a suitable and safe disposition Medication adjustment will be made as clinically indicated Continue current meds Usual Wellness Nondenominational/Preservation: - Start Trazodone 50 mg po QHS PRN The patient agreed on the treatment plan, understood the risk, benefit, alternative treatment, potential consequence of no treatment, and gave informed consent. Case staffed with Dr. Bull Medications and Allergies Allergies Allergy/AdvReac Type Severity Reaction Status Date / Time No Known Allergies Allergy Verified 11/06/21 01:39 Home Medications Medication Instructions Recorded Confirmed Last Taken Type Escitalopram [Lexapro] 10 mg PO DAILY 11/06/21 11/06/21 Unknown History Famotidine [Acid-Pep] 20 mg PO BID 11/06/21 11/06/21 Unknown History Meloxicam [Mobic] 7.5 mg PO QDAY 11/06/21 11/06/21 Unknown History Propranolol HCl [Inderal Xl] 80 mg PO DAILY 11/06/21 11/06/21 Unknown History amLODIPine [Norvasc] 5 mg PO DAILY 11/06/21 11/06/21 Unknown History buPROPion HCL [Bupropion Xl] 150 mg PO DAILY 11/06/21 11/06/21 Unknown History cephALEXin [Keflex] 500 mg PO TID 11/06/21 11/06/21 Unknown History clonazePAM [Klonopin] 1 mg PO QID 11/06/21 11/06/21 Unknown History lamoTRIgine [LaMICtal] 25 mg PO BID 11/06/21 11/06/21 Unknown History lisinopriL [Lisinopril] 10 mg PO DAILY 11/06/21 11/06/21 Unknown History risperiDONE [RisperDAL] 1 mg PO HS 11/06/21 11/06/21 Unknown History risperiDONE [RisperDAL] 1 mg PO 11/06/21 11/06/21 Unknown History Active Meds: Active Medications Acetaminophen (Acetaminophen 325 Mg Tab) 650 mg PO Q6H PRN PRN Reason: Pain, Mild (1-3) Last Admin: 11/18/21 14:58 Dose: 650 mg Amlodipine Besylate (Amlodipine 5 Mg Tab) 5 mg PO DAILY [facility] Last Admin: 11/18/21 10:05 Dose: 5 mg Bupropion HCl (Bupropion Xl 150 Mg Tab) 150 mg PO DAILY [facility] Last Admin: 11/18/21 10:03 Dose: 150 mg Clonazepam (Clonazepam 0.5 Mg Tab) 1 mg PO QID [facility] Last Admin: 11/18/21 21:18 Dose: 1 mg Escitalopram Oxalate (Escitalopram 10 Mg Tab) 10 mg PO DAILY [facility] Last Admin: 11/18/21 10:05 Dose: 10 mg Famotidine (Famotidine 20 Mg Tab) 20 mg PO BID [facility] Last Admin: 11/18/21 21:19 Dose: 20 mg Hydroxyzine Pamoate (Hydroxyzine Pamoate 25 Mg Cap) 25 mg PO Q6H PRN PRN Reason: Anxiety Last Admin: 11/08/21 11:16 Dose: 25 mg Lamotrigine (Lamotrigine 25 Mg Tab) 25 mg PO BID [facility] Last Admin: 11/18/21 21:18 Dose: 25 mg Lisinopril (Lisinopril 10 Mg Tab) 10 mg PO DAILY [facility] Last Admin: 11/18/21 10:04 Dose: 10 mg Meloxicam (Meloxicam 7.5 Mg Tab) 7.5 mg PO QDAY [facility] [place] Last Admin: 11/18/21 10:07 Dose: 7.5 mg Propranolol HCl (Propranolol La 80 Mg Cap) 80 mg PO QDAY [facility] Last Admin: 11/18/21 10:06 Dose: 80 mg Risperidone (Risperidone 1 Mg Tab) 1 mg PO [facility] Last Admin: 11/18/21 21:19 Dose: 1 mg Results - Results Labs/Vitals: Laboratory Last Values WBC 6.8 K/mm3 (4.5-11.0) 11/17/21 07:10 RBC 4.57 M/mm3 (3.65-5.03) 11/17/21 07:10 Hgb 13.2 gm/dl (10.1-14.3) 11/17/21 07:10 Hct 39.5 % (30.3-42.9) 11/17/21 07:10 MCV 87 fl (79-97) 11/17/21 07:10 MCH 29 pg (28-32) 11/17/21 07:10 MCHC 34 % (30-34) 11/17/21 07:10 RDW 14.1 % (13.2-15.2) 11/17/21 07:10 Plt Count 275 K/mm3 (140-440) 11/17/21 07:10 Lymph % (Auto) 32.4 % (13.4-35.0) 11/17/21 07:10 [place] % (Auto) 6.8 % (0.0-7.3) 11/17/21 07:10 Eos % (Auto) 2.2 % (0.0-4.3) 11/17/21 07:10 Baso % (Auto) 0.7 % (0.0-1.8) 11/17/21 07:10 Lymph # (Auto) 2.2 K/mm3 (1.2-5.4) 11/17/21 07:10 [place] # (Auto) 0.5 K/mm3 (0.0-0.8) 11/17/21 07:10 Eos # (Auto) 0.2 K/mm3 (0.0-0.4) 11/17/21 07:10 Baso # (Auto) 0.1 K/mm3 (0.0-0.1) 11/17/21 07:10 Seg Neutrophils % 57.9 % (40.0-70.0) 11/17/21 07:10 Seg Neutrophils # 3.9 K/mm3 (1.8-7.7) 11/17/21 07:10 Sodium 141 mmol/L (137-145) 11/17/21 11:04 Potassium 4.1 mmol/L (3.6-5.0) 11/17/21 11:04 Chloride 98.9 mmol/L (98-107) 11/17/21 11:04 Carbon Dioxide 31 mmol/L (22-30) H 11/17/21 11:04 Anion Gap 15 mmol/L 11/17/21 11:04 BUN 14 mg/dL (7-17) 11/17/21 11:04 Creatinine 0.7 mg/dL (0.6-1.2) 11/17/21 11:04 Estimated GFR > 60 ml/min 11/17/21 11:04 BUN/Creatinine Ratio 20 % 11/17/21 11:04 Glucose 136 mg/dL (65-100) H 11/17/21 11:04 Calcium 9.5 mg/dL (8.4-10.2) 11/17/21 11:04 Last Vital Signs Temp 98.9 F 11/18/21 20:55 Pulse 18 L 11/18/21 20:55 Resp 18 11/18/21 20:55 BP 137/63 11/18/21 20:55 Pulse Ox 94 11/18/21 20:55
[2021-11-19] MEDS: clonazePAM 0.5 MG TAB PO SCH ×4 (09:40→22:30)
[2021-11-19] MEDS: lamoTRIgine 25 MG TAB PO SCH ×2 (09:40→22:31)
[2021-11-19] MEDS: FAMOTIDINE 20 MG TAB PO SCH ×2 (09:41→22:31)
[2021-11-19] MEDS: buPROPion XL 150 MG TAB PO SCH (09:41)
[2021-11-19] MEDS: ESCITALOPRAM 10 MG TAB PO SCH (09:41)
[2021-11-19] MEDS: LISINOPRIL 10 MG TAB PO SCH (09:47)
[2021-11-19] MEDS: PROPRANOLOL LA 80 MG CAP PO SCH (09:48)
[2021-11-19] MEDS: amLODIPine 5 MG TAB PO SCH (09:48)
[2021-11-19] MEDS: MELOXICAM 7.5 MG TAB PO SCH (12:22)
--- NOTE | 2021-11-19 15:09 | Progress Note ---
Assessment and Plan - Patient Problems (1) Vascular dementia with behavior disturbance Current Visit: Yes Status: Acute Plan to address problem: Verbal prompting, verbal redirection, benzodiazepine therapy as clinically indicated. (2) Cerebral atherosclerosis Current Visit: Yes Status: Acute Plan to address problem: Risk factor reduction, antiplatelet therapy as clinically indicated. (3) Seizure disorder Current Visit: Yes Status: Acute Plan to address problem: Continue antiepileptic therapy, no seizure activity at this time, seizure precautions. (4) Hypertension Current Visit: Yes Status: Acute Qualifiers: Hypertension type: primary hypertension Qualified Code(s): I10 - Essential (primary) hypertension Plan to address problem: Monitor blood pressure every shift, continue medical management (5) Major depression Current Visit: Yes Status: Acute Plan to address problem: Continue medical management, supportive care. (6) Generalized anxiety disorder Current Visit: Yes Status: Acute Plan to address problem: Benzodiazepine therapy as clinically indicated. (7) Bipolar disorder Current Visit: Yes Status: Acute Plan to address problem: Continue medical management, supportive care. (8) Advance care planning Current Visit: Yes Status: Acute Plan to address problem: Disease education conducted, care plan discussed, diagnoses discussed, prognosis discussed, patient is full code, +30 minutes. (9) Preventative health care Current Visit: Yes Status: Acute Plan to address problem: Patient counseled regarding home safety, risk factor reduction, outpatient follow-up with primary care physician for all age and risk factor appropriate screening test. +30 minutes. History Interval history: 70 YO Female with Vascular Dementia with behavioral disturbance, Cerebral Atherosclerosis, HTN, Seizure Disorder, OA, MDD, CARYN, Bipolar Disorder admitted to [facility] unit for psychiatric stabilization. Patient seen and evaluated in the recreation room. Patient appears to be at baseline level of cognition and function. No reported nursing events. Hospitalist Physical - Constitutional Vitals: Temp Pulse Resp BP Pulse Ox 98.9 F 71 18 133/68 94 11/18/21 20:55 11/19/21 09:48 11/18/21 20:55 11/19/21 09:48 11/18/21 20:55 General appearance: Present: no acute distress, well-nourished - EENT Eyes: Present: PERRL ENT: hearing decreased - Neck Neck: Present: supple - Respiratory Respiratory effort: normal Respiratory: bilateral: diminished - Cardiovascular Rhythm: regular Heart Sounds: Present: S1 & S2 - Extremities Extremities: no ischemia Peripheral Pulses: within normal limits - Abdominal General gastrointestinal: soft, non-tender, non-distended - Integumentary Integumentary: Present: clear, dry - Psychiatric Psychiatric: cooperative - Neurologic Neurologic: CNII-XII intact Results - Labs CBC & Chem 7: 11/17/21 07:10 11/17/21 11:04 Labs: Laboratory Last Values WBC 6.8 K/mm3 (4.5-11.0) 11/17/21 07:10 RBC 4.57 M/mm3 (3.65-5.03) 11/17/21 07:10 Hgb 13.2 gm/dl (10.1-14.3) 11/17/21 07:10 Hct 39.5 % (30.3-42.9) 11/17/21 07:10 MCV 87 fl (79-97) 11/17/21 07:10 MCH 29 pg (28-32) 11/17/21 07:10 MCHC 34 % (30-34) 11/17/21 07:10 RDW 14.1 % (13.2-15.2) 11/17/21 07:10 Plt Count 275 K/mm3 (140-440) 11/17/21 07:10 Lymph % (Auto) 32.4 % (13.4-35.0) 11/17/21 07:10 [place] % (Auto) 6.8 % (0.0-7.3) 11/17/21 07:10 Eos % (Auto) 2.2 % (0.0-4.3) 11/17/21 07:10 Baso % (Auto) 0.7 % (0.0-1.8) 11/17/21 07:10 Lymph # (Auto) 2.2 K/mm3 (1.2-5.4) 11/17/21 07:10 [place] # (Auto) 0.5 K/mm3 (0.0-0.8) 11/17/21 07:10 Eos # (Auto) 0.2 K/mm3 (0.0-0.4) 11/17/21 07:10 Baso # (Auto) 0.1 K/mm3 (0.0-0.1) 11/17/21 07:10 Seg Neutrophils % 57.9 % (40.0-70.0) 11/17/21 07:10 Seg Neutrophils # 3.9 K/mm3 (1.8-7.7) 11/17/21 07:10 Sodium 141 mmol/L (137-145) 11/17/21 11:04 Potassium 4.1 mmol/L (3.6-5.0) 11/17/21 11:04 Chloride 98.9 mmol/L (98-107) 11/17/21 11:04 Carbon Dioxide 31 mmol/L (22-30) H 11/17/21 11:04 Anion Gap 15 mmol/L 11/17/21 11:04 BUN 14 mg/dL (7-17) 11/17/21 11:04 Creatinine 0.7 mg/dL (0.6-1.2) 11/17/21 11:04 Estimated GFR > 60 ml/min 11/17/21 11:04 BUN/Creatinine Ratio 20 % 11/17/21 11:04 Glucose 136 mg/dL (65-100) H 11/17/21 11:04 Calcium 9.5 mg/dL (8.4-10.2) 11/17/21 11:04 Lloyd/IV: Voiding Method Toilet Active Medications - Current Medications Current Medications: Generic Name Dose Route Start Last Admin Trade Name Freq PRN Reason Stop Dose Admin Acetaminophen 650 mg 11/07/21 16:48 11/18/21 14:58 Acetaminophen 325 Mg Tab PO 650 mg Q6H PRN Administration Pain, Mild (1-3) Amlodipine Besylate 5 mg 11/07/21 10:00 11/19/21 09:48 Amlodipine 5 Mg Tab PO 5 mg DAILY [facility] Administration Bupropion HCl 150 mg 11/06/21 13:00 11/19/21 09:41 Bupropion Xl 150 Mg Tab PO 150 mg DAILY [facility] Administration Clonazepam 1 mg 11/06/21 18:00 11/19/21 09:40 Clonazepam 0.5 Mg Tab PO 1 mg QID [facility] Administration Escitalopram Oxalate 10 mg 11/06/21 14:00 11/19/21 09:41 Escitalopram 10 Mg Tab PO 10 mg DAILY [facility] Administration Famotidine 20 mg 11/06/21 22:00 11/19/21 09:41 Famotidine 20 Mg Tab PO 20 mg BID [facility] Administration Hydroxyzine Pamoate 25 mg 11/07/21 10:00 08/05/22 11:16 Hydroxyzine Pamoate 25 Mg Cap PO 25 mg Q6H PRN Administration Anxiety Lamotrigine 25 mg 11/06/21 22:00 11/19/21 09:40 Lamotrigine 25 Mg Tab PO 25 mg BID [facility] Administration Lisinopril 10 mg 11/07/21 10:00 11/19/21 09:47 Lisinopril 10 Mg Tab PO 10 mg DAILY [facility] Administration Meloxicam 7.5 mg 11/07/21 10:00 11/19/21 12:22 Meloxicam 7.5 Mg Tab PO 7.5 mg QDAY [facility] Administration Propranolol HCl 80 mg 11/07/21 10:00 11/19/21 09:48 Propranolol La 80 Mg Cap PO 80 mg QDAY [facility] Administration Risperidone 1 mg 11/06/21 22:00 11/18/21 21:19 Risperidone 1 Mg Tab PO 1 mg HS [facility] Administration Nutrition/Malnutrition Assess - Dietary Evaluation Nutrition/Malnutrition Findings: Nutrition Notes Start: 11/13/21 15:29 Freq: Status: Active Protocol: Document 11/13/21 15:29 NINA (Rec: 11/13/21 15:41 NINA [id number]) Nutrition Notes Need for Assessment generated from: LOS Initial or Follow up Assessment Current Diagnosis Hypertension Other Pertinent Diagnosis Dementia w/Behavioral Disturbance, Seizure, Cerebral Atherosclerosis, Anxie Current Diet Regular Diet (since D 11/06). Labs/Tests 11/13: N/A. Pertinent Medications 11/13: Nutritionally unremarkable. Height 5 ft 6.14 in Weight 73 kg [place] Body Weight (kg) 59.40 BMI 25.8 Intake Prior to Admission Good Weight change and time frame Pt denies having loss body weight QA DEVELOPER. Weight Status Appropriate Subjective/Other Information RD consult for LOS assessment. Pt's PO intake of meals has been Good (100%) and well tolerated, according to ADL notes. Pt is on Room Air, O2 saturation @ 100%, according to Vital Signs notes. Percent of energy/protein needs met: Prescribed Regular Diet provides for energy/protein needs (2,289 Kcal/89 g) during LOS. Burn Absent Trauma Absent GI Symptoms None Food Allergy No Skin Integrity/Comment Assessmernt WNL. Current % PO Good (75-100%) Minimum of two criteria No Fluid Accumulation N/A Reduced Rock Worker Strength N/A (non-severe) Protein-Calorie Malnutrition N\A #2 Nutrition Diagnosis No nutrition diagnosis at this time Is patient on ventilator? No Is Patient Ambulatory and/or Out of Bed Yes REE-([facility]-ambulatory/OOB) [ 5386.700 [id number]] Calculation Used for Recommendations Kcal/kg Additional Notes Protein: 1-1.2 g/Kg ABW; 73-88 g/day. Fluids: 1 ml/Kcal, or as per MD. Nutrition Intervention Change Diet Order: Continue Regular Diet as tolerated. Revisit per MD consult or patient Sign Off request: Additional Comments Continue monitoring food tolerance, %PO intake of meals , and BM.
[2021-11-19] MEDS: ACETAMINOPHEN 325 MG TAB PO PRN (16:04)
[2021-11-19] MEDS: risperiDONE 1 MG TAB PO SCH (22:31)
[2021-11-20] MEDS: buPROPion XL 150 MG TAB PO SCH (09:46)
[2021-11-20] MEDS: PROPRANOLOL LA 80 MG CAP PO SCH (09:46)
[2021-11-20] MEDS: clonazePAM 0.5 MG TAB PO SCH ×4 (09:46→21:30)
[2021-11-20] MEDS: MELOXICAM 7.5 MG TAB PO SCH (09:46)
[2021-11-20] MEDS: FAMOTIDINE 20 MG TAB PO SCH ×2 (09:46→21:30)
[2021-11-20] MEDS: lamoTRIgine 25 MG TAB PO SCH ×2 (09:46→21:31)
[2021-11-20] MEDS: LISINOPRIL 10 MG TAB PO SCH (09:47)
[2021-11-20] MEDS: ESCITALOPRAM 10 MG TAB PO SCH (09:47)
[2021-11-20] MEDS: amLODIPine 5 MG TAB PO SCH (09:48)
--- NOTE | 2021-11-20 15:18 | Progress Note ---
Subjective Date of service: 11/20/21 Principal diagnosis: schizophrenia Subjective Comment: The patient was seen today. She denies SI/HI or hallucinations of any kind, She is clear from psych and is awaiting placement. REVIEW OF SYSTEMS Constitutional: Negative for weight loss ENT: Negative for stridor Respiratory: Negative for cough or hemoptysis All other systems reviewed and are negative MENTAL STATUS General Appearance and Behavior: age appropriate, good eye contact, cooperative, anxious Cooperation: Cooperative Psychomotor Behavior: within normal limits Mood: depressed, anxious Affect and affective range: Congruent with stated mood, tearful Thought Process: goal directed Thought Content: None Speech: Normal volume and Regular rate and rhythm Suicidal Ideation: Denies Homicidal Ideation: Denies HI Hallucinations: Denies Impulse Control: intact Insight and Judgment: Limited Memory: Limited Attention: Distracted Orientation: alert and oriented Assessment Schizophrenia Generalized Anxiety Disorder Treatment Plan Patient will be admitted for inpatient psychiatric evaluation, medication adjustment and close monitoring The patient's behavior, mood, sleep and appetite will be closely monitored. Patient will be enrolled in individual and group therapeutic sessions and encouraged to attend. Patient will be provided with a safe and structured environment. Patient's physical health needs will be addressed by the Hospitalist. Hospitalist Consulted Labs including CBC, CMP, Lipid profile and Hemoglobin A1C ordered Social Assessment will be completed and the Properties Supervisor will work with patient and family to ensure a suitable and safe disposition Medication adjustment will be made as clinically indicated Continue current meds Usual Wellness Protestant/Preservation: - Start Trazodone 50 mg po QHS PRN The patient agreed on the treatment plan, understood the risk, benefit, alternative treatment, potential consequence of no treatment, and gave informed consent. Case staffed with Dr. Bull Medications and Allergies Allergies Allergy/AdvReac Type Severity Reaction Status Date / Time No Known Allergies Allergy Verified 11/06/21 01:39 Home Medications Medication Instructions Recorded Confirmed Last Taken Type Escitalopram [Lexapro] 10 mg PO DAILY 11/06/21 11/06/21 Unknown History Famotidine [Acid-Pep] 20 mg PO BID 11/06/21 11/06/21 Unknown History Meloxicam [Mobic] 7.5 mg PO QDAY 11/06/21 11/06/21 Unknown History Propranolol HCl [Inderal Xl] 80 mg PO DAILY 11/06/21 11/06/21 Unknown History amLODIPine [Norvasc] 5 mg PO DAILY 11/06/21 11/06/21 Unknown History buPROPion HCL [Bupropion Xl] 150 mg PO DAILY 11/06/21 11/06/21 Unknown History cephALEXin [Keflex] 500 mg PO TID 11/06/21 11/06/21 Unknown History clonazePAM [Klonopin] 1 mg PO QID 11/06/21 11/06/21 Unknown History lamoTRIgine [LaMICtal] 25 mg PO BID 11/06/21 11/06/21 Unknown History lisinopriL [Lisinopril] 10 mg PO DAILY 11/06/21 11/06/21 Unknown History risperiDONE [RisperDAL] 1 mg PO HS 11/06/21 11/06/21 Unknown History risperiDONE [RisperDAL] 1 mg PO 11/06/21 11/06/21 Unknown History Active Meds: Active Medications Acetaminophen (Acetaminophen 325 Mg Tab) 650 mg PO Q6H PRN PRN Reason: Pain, Mild (1-3) Last Admin: 11/19/21 16:04 Dose: 650 mg Amlodipine Besylate (Amlodipine 5 Mg Tab) 5 mg PO DAILY [facility] Last Admin: 11/20/21 09:48 Dose: 5 mg Bupropion HCl (Bupropion Xl 150 Mg Tab) 150 mg PO DAILY [facility] Last Admin: 11/20/21 09:46 Dose: 150 mg Clonazepam (Clonazepam 0.5 Mg Tab) 1 mg PO QID [facility] Last Admin: 11/20/21 15:13 Dose: 1 mg Escitalopram Oxalate (Escitalopram 10 Mg Tab) 10 mg PO DAILY [facility] Last Admin: 11/20/21 09:47 Dose: 10 mg Famotidine (Famotidine 20 Mg Tab) 20 mg PO BID [facility] Last Admin: 11/20/21 09:46 Dose: 20 mg Hydroxyzine Pamoate (Hydroxyzine Pamoate 25 Mg Cap) 25 mg PO Q6H PRN PRN Reason: Anxiety Last Admin: 11/08/21 11:16 Dose: 25 mg Lamotrigine (Lamotrigine 25 Mg Tab) 25 mg PO BID [facility] Last Admin: 11/20/21 09:46 Dose: 25 mg Lisinopril (Lisinopril 10 Mg Tab) 10 mg PO DAILY [facility] Last Admin: 11/20/21 09:47 Dose: 10 mg Meloxicam (Meloxicam 7.5 Mg Tab) 7.5 mg PO QDAY [facility] Last Admin: 11/20/21 09:46 Dose: 7.5 mg Propranolol HCl (Propranolol La 80 Mg Cap) 80 mg PO QDAY [facility] Last Admin: 11/20/21 09:46 Dose: 80 mg Risperidone (Risperidone 1 Mg Tab) 1 mg PO [facility] Last Admin: 11/19/21 22:31 Dose: 1 mg Results - Results Labs/Vitals: Laboratory Last Values WBC 6.8 K/mm3 (4.5-11.0) 11/17/21 07:10 RBC 4.57 M/mm3 (3.65-5.03) 11/17/21 07:10 Hgb 13.2 gm/dl (10.1-14.3) 11/17/21 07:10 Hct 39.5 % (30.3-42.9) 11/17/21 07:10 MCV 87 fl (79-97) 11/17/21 07:10 MCH 29 pg (28-32) 11/17/21 07:10 MCHC 34 % (30-34) 11/17/21 07:10 RDW 14.1 % (13.2-15.2) 11/17/21 07:10 Plt Count 275 K/mm3 (140-440) 11/17/21 07:10 Lymph % (Auto) 32.4 % (13.4-35.0) 11/17/21 07:10 [place] % (Auto) 6.8 % (0.0-7.3) 11/17/21 07:10 Eos % (Auto) 2.2 % (0.0-4.3) 11/17/21 07:10 Baso % (Auto) 0.7 % (0.0-1.8) 11/17/21 07:10 Lymph # (Auto) 2.2 K/mm3 (1.2-5.4) 11/17/21 07:10 [place] # (Auto) 0.5 K/mm3 (0.0-0.8) 11/17/21 07:10 Eos # (Auto) 0.2 K/mm3 (0.0-0.4) 11/17/21 07:10 Baso # (Auto) 0.1 K/mm3 (0.0-0.1) 11/17/21 07:10 Seg Neutrophils % 57.9 % (40.0-70.0) 11/17/21 07:10 Seg Neutrophils # 3.9 K/mm3 (1.8-7.7) 11/17/21 07:10 Sodium 141 mmol/L (137-145) 11/17/21 11:04 Potassium 4.1 mmol/L (3.6-5.0) 11/17/21 11:04 Chloride 98.9 mmol/L (98-107) 11/17/21 11:04 Carbon Dioxide 31 mmol/L (22-30) H 11/17/21 11:04 Anion Gap 15 mmol/L 11/17/21 11:04 BUN 14 mg/dL (7-17) 11/17/21 11:04 Creatinine 0.7 mg/dL (0.6-1.2) 11/17/21 11:04 Estimated GFR > 60 ml/min 11/17/21 11:04 BUN/Creatinine Ratio 20 % 11/17/21 11:04 Glucose 136 mg/dL (65-100) H 11/17/21 11:04 Calcium 9.5 mg/dL (8.4-10.2) 11/17/21 11:04 Last Vital Signs Temp 98.9 F 11/20/21 07:13 Pulse 63 11/20/21 09:47 Resp 18 11/20/21 07:13 BP 147/69 11/20/21 09:47 Pulse Ox 94 11/20/21 07:13
--- NOTE | 2021-11-20 18:10 | XRay Report ---
CHEST 1 VIEW 11/20/2021 4:50 PM INDICATION / CLINICAL INFORMATION: r/o TB. COMPARISON: None available. FINDINGS: SUPPORT DEVICES: None. HEART / MEDIASTINUM: No significant abnormality. LUNGS / PLEURA: The lungs are clear with elevation of the right hemidiaphragm. No significant pleural effusion. No pneumothorax. ADDITIONAL FINDINGS: There is unremarkable appearing multilevel thoracolumbar fusion. There are old f ractures of the left fourth and fifth ribs posteriorly. IMPRESSION: No radiographic evidence of active tuberculosis. No other acute findings. Signer Name: Pedro Obregon MD Signed: 11/20/2021 6:06 PM Workstation Name: [id number]
[2021-11-20] MEDS: risperiDONE 1 MG TAB PO SCH (21:30)
[2021-11-20] MEDS: ACETAMINOPHEN 325 MG TAB PO PRN (21:31)
--- NOTE | 2021-11-21 08:14 | Progress Note ---
Subjective Date of service: 11/21/21 Principal diagnosis: schizophrenia Subjective Comment: The patient was seen today. She is calm and cooperative. She is pleasant. She denies SI/HI or hallucinations of any kind, She is clear from psych and is awaiting placement. REVIEW OF SYSTEMS Constitutional: Negative for weight loss ENT: Negative for stridor Respiratory: Negative for cough or hemoptysis All other systems reviewed and are negative MENTAL STATUS General Appearance and Behavior: age appropriate, good eye contact, cooperative, anxious Cooperation: Cooperative Psychomotor Behavior: within normal limits Mood: depressed, anxious Affect and affective range: Congruent with stated mood, tearful Thought Process: goal directed Thought Content: None Speech: Normal volume and Regular rate and rhythm Suicidal Ideation: Denies Homicidal Ideation: Denies HI Hallucinations: Denies Impulse Control: intact Insight and Judgment: Limited Memory: Limited Attention: Distracted Orientation: alert and oriented Assessment Schizophrenia Generalized Anxiety Disorder Treatment Plan Patient will be admitted for inpatient psychiatric evaluation, medication adjustment and close monitoring The patient's behavior, mood, sleep and appetite will be closely monitored. Patient will be enrolled in individual and group therapeutic sessions and encouraged to attend. Patient will be provided with a safe and structured environment. Patient's physical health needs will be addressed by the Hospitalist. Hospitalist Consulted Labs including CBC, CMP, Lipid profile and Hemoglobin A1C ordered Social Assessment will be completed and the Covered Buckle Assembler will work with patient and family to ensure a suitable and safe disposition Medication adjustment will be made as clinically indicated Continue current meds Usual Wellness Jewish/Preservation: - Start Trazodone 50 mg po QHS PRN The patient agreed on the treatment plan, understood the risk, benefit, alternative treatment, potential consequence of no treatment, and gave informed consent. Case staffed with Dr. Bull Medications and Allergies Allergies Allergy/AdvReac Type Severity Reaction Status Date / Time No Known Allergies Allergy Verified 11/06/21 01:39 Home Medications Medication Instructions Recorded Confirmed Last Taken Type Escitalopram [Lexapro] 10 mg PO DAILY 11/06/21 11/06/21 Unknown History Famotidine [Acid-Pep] 20 mg PO BID 11/06/21 11/06/21 Unknown History Meloxicam [Mobic] 7.5 mg PO QDAY 11/06/21 11/06/21 Unknown History Propranolol HCl [Inderal Xl] 80 mg PO DAILY 11/06/21 11/06/21 Unknown History amLODIPine [Norvasc] 5 mg PO DAILY 11/06/21 11/06/21 Unknown History buPROPion HCL [Bupropion Xl] 150 mg PO DAILY 11/06/21 11/06/21 Unknown History cephALEXin [Keflex] 500 mg PO TID 11/06/21 11/06/21 Unknown History clonazePAM [Klonopin] 1 mg PO QID 11/06/21 11/06/21 Unknown History lamoTRIgine [LaMICtal] 25 mg PO BID 11/06/21 11/06/21 Unknown History lisinopriL [Lisinopril] 10 mg PO DAILY 11/06/21 11/06/21 Unknown History risperiDONE [RisperDAL] 1 mg PO HS 11/06/21 11/06/21 Unknown History risperiDONE [RisperDAL] 1 mg PO HS 11/06/21 11/06/21 Unknown History Active Meds: Active Medications Acetaminophen (Acetaminophen 325 Mg Tab) 650 mg PO Q6H PRN PRN Reason: Pain, Mild (1-3) Last Admin: 11/20/21 21:31 Dose: 650 mg Amlodipine Besylate (Amlodipine 5 Mg Tab) 5 mg PO DAILY [facility] Last Admin: 11/20/21 09:48 Dose: 5 mg Bupropion HCl (Bupropion Xl 150 Mg Tab) 150 mg PO DAILY [facility] Last Admin: 11/20/21 09:46 Dose: 150 mg Clonazepam (Clonazepam 0.5 Mg Tab) 1 mg PO QID [facility] Last Admin: 11/20/21 21:30 Dose: 1 mg Escitalopram Oxalate (Escitalopram 10 Mg Tab) 10 mg PO DAILY [facility] Last Admin: 11/20/21 09:47 Dose: 10 mg Famotidine (Famotidine 20 Mg Tab) 20 mg PO BID [facility] Last Admin: 11/20/21 21:30 Dose: 20 mg Hydroxyzine Pamoate (Hydroxyzine Pamoate 25 Mg Cap) 25 mg PO Q6H PRN PRN Reason: Anxiety Last Admin: 11/08/21 11:16 Dose: 25 mg Lamotrigine (Lamotrigine 25 Mg Tab) 25 mg PO BID [facility] Last Admin: 11/20/21 21:31 Dose: 25 mg Lisinopril (Lisinopril 10 Mg Tab) 10 mg PO DAILY [facility] Last Admin: 11/20/21 09:47 Dose: 10 mg Meloxicam (Meloxicam 7.5 Mg Tab) 7.5 mg PO QDAY [facility] Last Admin: 11/20/21 09:46 Dose: 7.5 mg Propranolol HCl (Propranolol La 80 Mg Cap) 80 mg PO QDAY [facility] Last Admin: 11/20/21 09:46 Dose: 80 mg Risperidone (Risperidone 1 Mg Tab) 1 mg PO HS [facility] Last Admin: 11/20/21 21:30 Dose: 1 mg Results - Results Labs/Vitals: Laboratory Last Values WBC 6.8 K/mm3 (4.5-11.0) 11/17/21 07:10 RBC 4.57 M/mm3 (3.65-5.03) 11/17/21 07:10 Hgb 13.2 gm/dl (10.1-14.3) 11/17/21 07:10 Hct 39.5 % (30.3-42.9) 11/17/21 07:10 MCV 87 fl (79-97) 11/17/21 07:10 MCH 29 pg (28-32) 11/17/21 07:10 MCHC 34 % (30-34) 11/17/21 07:10 RDW 14.1 % (13.2-15.2) 11/17/21 07:10 Plt Count 275 K/mm3 (140-440) 11/17/21 07:10 Lymph % (Auto) 32.4 % (13.4-35.0) 11/17/21 07:10 [place] % (Auto) 6.8 % (0.0-7.3) 11/17/21 07:10 Eos % (Auto) 2.2 % (0.0-4.3) 11/17/21 07:10 Baso % (Auto) 0.7 % (0.0-1.8) 11/17/21 07:10 Lymph # (Auto) 2.2 K/mm3 (1.2-5.4) 11/17/21 07:10 [place] # (Auto) 0.5 K/mm3 (0.0-0.8) 11/17/21 07:10 Eos # (Auto) 0.2 K/mm3 (0.0-0.4) 11/17/21 07:10 Baso # (Auto) 0.1 K/mm3 (0.0-0.1) 11/17/21 07:10 Seg Neutrophils % 57.9 % (40.0-70.0) 11/17/21 07:10 Seg Neutrophils # 3.9 K/mm3 (1.8-7.7) 11/17/21 07:10 Sodium 141 mmol/L (137-145) 11/17/21 11:04 Potassium 4.1 mmol/L (3.6-5.0) 11/17/21 11:04 Chloride 98.9 mmol/L (98-107) 11/17/21 11:04 Carbon Dioxide 31 mmol/L (22-30) H 11/17/21 11:04 Anion Gap 15 mmol/L 11/17/21 11:04 BUN 14 mg/dL (7-17) 11/17/21 11:04 Creatinine 0.7 mg/dL (0.6-1.2) 11/17/21 11:04 Estimated GFR > 60 ml/min 11/17/21 11:04 BUN/Creatinine Ratio 20 % 11/17/21 11:04 Glucose 136 mg/dL (65-100) H 11/17/21 11:04 Calcium 9.5 mg/dL (8.4-10.2) 11/17/21 11:04 Last Vital Signs Temp 98.8 F 11/20/21 19:13 Pulse 59 L 11/20/21 19:13 Resp 20 11/20/21 21:31 BP 123/68 11/20/21 19:13 Pulse Ox 94 11/20/21 19:13
--- NOTE | 2021-11-21 08:35 | Discharge Summary ---
Providers - Providers Date of Admission: 11/06/21 01:21 Date of discharge: 11/21/21 Attending physician: MARILEE SWANSON MD Primary care physician: ANTONIO CARMONA Hospitalization Reason for admission: agitation Admitting Diagnosis: F20.9 - SCHIZOPHRENIA, UNSPECIFIED Condition: Stable Hospital course: The patient was provided inpatient psychiatric treatment with safe and supportive care, medication adjustment, adverse effect monitoring, medical evaluations, medical treatments, assessment and psycho-education. The patient's mood, cognition, behavior, moral support are improved and stabilized. St the time of discharge, the patient had no endangering behavior and no debilitating adverse effects. The patient agreed on potential consequences of no treatment and gave informed consent. Disposition: 03 LONG-TERM FACILITY Time spent for discharge: 40 Allergies/Adverse Reactions: Allergies No Known Allergies Allergy (Verified 11/06/21 01:39) Vital Signs: Last Vital Signs Temp 98.8 F 11/20/21 19:13 Pulse 59 L 11/20/21 19:13 Resp 20 11/20/21 21:31 BP 123/68 11/20/21 19:13 Pulse Ox 94 11/20/21 19:13 Last Lab: Laboratory Last Values WBC 6.8 K/mm3 (4.5-11.0) 11/17/21 07:10 RBC 4.57 M/mm3 (3.65-5.03) 11/17/21 07:10 Hgb 13.2 gm/dl (10.1-14.3) 11/17/21 07:10 Hct 39.5 % (30.3-42.9) 11/17/21 07:10 MCV 87 fl (79-97) 11/17/21 07:10 MCH 29 pg (28-32) 11/17/21 07:10 MCHC 34 % (30-34) 11/17/21 07:10 RDW 14.1 % (13.2-15.2) 11/17/21 07:10 Plt Count 275 K/mm3 (140-440) 11/17/21 07:10 Lymph % (Auto) 32.4 % (13.4-35.0) 11/17/21 07:10 [place] % (Auto) 6.8 % (0.0-7.3) 11/17/21 07:10 Eos % (Auto) 2.2 % (0.0-4.3) 11/17/21 07:10 Baso % (Auto) 0.7 % (0.0-1.8) 11/17/21 07:10 Lymph # (Auto) 2.2 K/mm3 (1.2-5.4) 11/17/21 07:10 [place] # (Auto) 0.5 K/mm3 (0.0-0.8) 11/17/21 07:10 Eos # (Auto) 0.2 K/mm3 (0.0-0.4) 11/17/21 07:10 Baso # (Auto) 0.1 K/mm3 (0.0-0.1) 11/17/21 07:10 Seg Neutrophils % 57.9 % (40.0-70.0) 11/17/21 07:10 Seg Neutrophils # 3.9 K/mm3 (1.8-7.7) 11/17/21 07:10 Sodium 141 mmol/L (137-145) 11/17/21 11:04 Potassium 4.1 mmol/L (3.6-5.0) 11/17/21 11:04 Chloride 98.9 mmol/L (98-107) 11/17/21 11:04 Carbon Dioxide 31 mmol/L (22-30) H 11/17/21 11:04 Anion Gap 15 mmol/L 11/17/21 11:04 BUN 14 mg/dL (7-17) 11/17/21 11:04 Creatinine 0.7 mg/dL (0.6-1.2) 11/17/21 11:04 Estimated GFR > 60 ml/min 11/17/21 11:04 BUN/Creatinine Ratio 20 % 11/17/21 11:04 Glucose 136 mg/dL (65-100) H 11/17/21 11:04 Calcium 9.5 mg/dL (8.4-10.2) 11/17/21 11:04 Core Measure Documentation - Palliative Care Palliative Care/ Comfort Measures: Not Applicable - Core Measures Any of the following diagnoses?: none Exam - Constitutional Vitals: Temp Pulse Resp BP Pulse Ox 98.8 F 59 L 20 123/68 94 11/20/21 19:13 11/20/21 19:13 11/20/21 21:31 11/20/21 19:13 11/20/21 19:13 General appearance: Present: no acute distress - EENT Eyes: Present: PERRL, EOM intact ENT: hearing intact, clear oral mucosa - Neck Neck: Present: supple, normal ROM - Respiratory Respiratory effort: normal Plan Activity: advance as tolerated Weight Bearing Status: Weight Bear as Tolerated Care Plan Goals: Maintain good and stable mental health Plan of Treatment: The patient should be compliant with medications, not to use drugs, and not to drink alcohol. The patient understands that if suicidal ideas, homicidal ideas or any endangering feeling arise, the patient should seek assistance including, but not limited to crisis hotline, and emergency room. Assessment: Schizophrenia Follow up with: ANTONIO CARMONA MD [Primary Care Provider] - 7 Days Prescriptions: Famotidine [Acid-Pep] 20 mg PO BID #30 amLODIPine 5 mg PO DAILY #30 buPROPion HCL [Bupropion Xl] 150 mg PO DAILY #30 Propranolol HCl [Inderal Xl] 80 mg PO DAILY #30 clonazePAM [KlonoPIN] 1 mg PO QID #120 tablet lamoTRIgine [LaMICtal] 25 mg PO BID #60 Escitalopram [Lexapro] 10 mg PO DAILY #30 lisinopriL [Lisinopril] 10 mg PO DAILY #30 Meloxicam [Mobic] 7.5 mg PO QDAY #30 risperiDONE [RisperDAL] 1 mg PO HS #30
[2021-11-21 10:46] VITALS: BP 110/64
[2021-11-21] MEDS: amLODIPine 5 MG TAB PO SCH (10:46)
[2021-11-21] MEDS: buPROPion XL 150 MG TAB PO SCH (10:46)
[2021-11-21] MEDS: clonazePAM 0.5 MG TAB PO SCH (10:47)
[2021-11-21] MEDS: lamoTRIgine 25 MG TAB PO SCH (10:47)
[2021-11-21] MEDS: FAMOTIDINE 20 MG TAB PO SCH (10:47)
[2021-11-21] MEDS: ESCITALOPRAM 10 MG TAB PO SCH (10:47)
[2021-11-21] MEDS: LISINOPRIL 10 MG TAB PO SCH (10:50)
[2021-11-21] MEDS: PROPRANOLOL LA 80 MG CAP PO SCH (10:55)
[2021-11-21] MEDS: MELOXICAM 7.5 MG TAB PO SCH (10:56)
== END 2021-11-21 13:15 | DRG 885 ==
LOC: 5A 01:21
PROVIDERS: ADMIT Psychiatry & Neurology Psychiatry; ATTEND Psychiatry & Neurology Psychiatry
DX: F20.9 Schizophrenia, unspecified (principal); F01.51 Vascular dementia, unspecified severity, with behavioral disturbance; Z20.822 Contact with and (suspected) exposure to COVID-19; I67.2 Cerebral atherosclerosis; I10 Essential (primary) hypertension; G40.909 Epilepsy, unspecified, not intractable, without status epilepticus; M19.90 Unspecified osteoarthritis, unspecified site; F31.9 Bipolar disorder, unspecified; F41.1 Generalized anxiety disorder; Z82.49 Family history of ischemic heart disease and other diseases of the circulatory system; Z83.3 Family history of diabetes mellitus
CPT/HCPCS: 36415; 71045; 80048; 85025; G0378; U0003

== ENCOUNTER 2021-11-21 15:08 | Emergency (ER) | payer MEDICARE ==
[2021-11-21 18:13] LABS: Alanine Aminotransferase 8 units/L (7-56); Blood Urea Nitrogen 17 mg/dL (7-17); Calcium 9.2 mg/dL (8.4-10.2); Hemolysis Index 9
[2021-11-21 18:15] LABS: Basophils # (Auto) 0.1 K/mm3 (0.0-0.1); Basophils % (Auto) 1.3 % (0.0-1.8); Eosinophils # (Auto) 0.2 K/mm3 (0.0-0.4); Eosinophils % (Auto) 2.7 % (0.0-4.3); Hematocrit 37.9 % (30.3-42.9); Hemoglobin 12.4 gm/dl (10.1-14.3); Lymphocytes # (Auto) 2.7 K/mm3 (1.2-5.4); Lymphocytes % (Auto) 42.4 % (13.4-35.0); Mean Corpuscular HGB Conc 33 % (30-34); Mean Corpuscular Volume 86 fl (79-97); Monocytes # (Auto) 0.4 K/mm3 (0.0-0.8); Monocytes % (Auto) 5.9 % (0.0-7.3); Platelet Count 261 K/mm3 (140-440); Red Blood Count 4.41 M/mm3 (3.65-5.03); Red Cell Distribution Width 14.4 % (13.2-15.2)
[2021-11-21 18:20] LABS: BUN/Creatinine Ratio 24
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
[2021-11-22] MEDS: HALOPERIDOL LACTATE 5 MG/1 ML INJ IM PRN (07:40)
[2021-11-22] MEDS ORDERED: ACETAMINOPHEN 500 MG TAB PO ONE (14:34)
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
[2021-11-23] MEDS: clonazePAM 0.5 MG TAB PO SCH ×2 (17:30→21:56)
[2021-11-23] MEDS: risperiDONE 1 MG TAB PO SCH (21:57)
[2021-11-23] MEDS: FAMOTIDINE 20 MG TAB PO SCH (21:57)
[2021-11-23] MEDS: lamoTRIgine 25 MG TAB PO SCH (21:58)
[2021-11-24] MEDS ORDERED: PROPRANOLOL HCL 80 MG PO SCH (10:00)
[2021-11-24] MEDS: clonazePAM 0.5 MG TAB PO SCH ×4 (10:04→22:48)
[2021-11-24] MEDS: buPROPion XL 150 MG TAB PO SCH (10:04)
[2021-11-24] MEDS: ESCITALOPRAM 10 MG TAB PO SCH (10:04)
[2021-11-24] MEDS: FAMOTIDINE 20 MG TAB PO SCH ×2 (10:04→22:49)
[2021-11-24] MEDS: lamoTRIgine 25 MG TAB PO SCH ×2 (10:04→22:48)
[2021-11-24] MEDS: amLODIPine 5 MG TAB PO SCH (10:04)
[2021-11-24] MEDS: LISINOPRIL 10 MG TAB PO SCH (10:05)
[2021-11-24] MEDS: PROPRANOLOL LA 80 MG CAP PO SCH (10:42)
[2021-11-24] MEDS: MELOXICAM 7.5 MG TAB PO SCH (10:43)
--- NOTE | 2021-11-24 13:08 | Event Note ---
Date: 11/24/21 70 yo F readmitted to the ED as she was refused to be admitted back to her [facility]pc after discharge from the ED. She is still waiting for case management for placement into another fpc. No issue raised with this patient at this this morning.
[2021-11-24] MEDS: risperiDONE 1 MG TAB PO SCH (22:49)
[2021-11-25] MEDS: amLODIPine 5 MG TAB PO SCH (11:18)
[2021-11-25] MEDS: PROPRANOLOL LA 80 MG CAP PO SCH (11:19)
[2021-11-25] MEDS: LISINOPRIL 10 MG TAB PO SCH (11:20)
[2021-11-25] MEDS: lamoTRIgine 25 MG TAB PO SCH (11:21)
[2021-11-25] MEDS: FAMOTIDINE 20 MG TAB PO SCH (11:21)
[2021-11-25] MEDS: clonazePAM 0.5 MG TAB PO SCH ×3 (11:22→18:49)
[2021-11-25] MEDS: buPROPion XL 150 MG TAB PO SCH (11:22)
[2021-11-25] MEDS: ESCITALOPRAM 10 MG TAB PO SCH (11:22)
[2021-11-25] MEDS: MELOXICAM 7.5 MG TAB PO SCH (11:47)
--- NOTE | 2021-11-25 12:22 | Event Note ---
Date: 11/25/21 No new events overnight. Awaiting placement into a detention facility after the patient was refused entrance to a prior custodial placement.
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
[2021-11-26] MEDS: FAMOTIDINE 20 MG TAB PO SCH ×2 (10:16→10:37)
[2021-11-26] MEDS: lamoTRIgine 25 MG TAB PO SCH ×2 (10:16→10:37)
[2021-11-26] MEDS: clonazePAM 0.5 MG TAB PO SCH ×4 (10:16→17:56)
[2021-11-26] MEDS: risperiDONE 1 MG TAB PO SCH (10:17)
[2021-11-26] MEDS: amLODIPine 5 MG TAB PO SCH (10:37)
[2021-11-26] MEDS: PROPRANOLOL LA 80 MG CAP PO SCH (10:37)
[2021-11-26] MEDS: ESCITALOPRAM 10 MG TAB PO SCH (10:37)
[2021-11-26] MEDS: buPROPion XL 150 MG TAB PO SCH (10:37)
[2021-11-26] MEDS: MELOXICAM 7.5 MG TAB PO SCH (10:37)
[2021-11-26] MEDS: LISINOPRIL 10 MG TAB PO SCH (10:38)
[2021-11-27] MEDS: clonazePAM 0.5 MG TAB PO SCH ×5 (03:18→21:42)
[2021-11-27] MEDS: FAMOTIDINE 20 MG TAB PO SCH ×3 (03:18→21:43)
[2021-11-27] MEDS: lamoTRIgine 25 MG TAB PO SCH ×3 (03:18→21:43)
[2021-11-27] MEDS: risperiDONE 1 MG TAB PO SCH ×2 (03:19→21:43)
[2021-11-27] MEDS: amLODIPine 5 MG TAB PO SCH (10:47)
[2021-11-27] MEDS: PROPRANOLOL LA 80 MG CAP PO SCH (10:47)
[2021-11-27] MEDS: ESCITALOPRAM 10 MG TAB PO SCH (10:48)
[2021-11-27] MEDS: MELOXICAM 7.5 MG TAB PO SCH (10:48)
[2021-11-27] MEDS: LISINOPRIL 10 MG TAB PO SCH (10:48)
[2021-11-27] MEDS: buPROPion XL 150 MG TAB PO SCH (10:48)
--- NOTE | 2021-11-27 12:00 | Event Note ---
Date: 11/27/21 vss , medically clear , no events overnight , awaiting disposition
--- NOTE | 2021-11-28 11:42 | Consultation ---
History of Present Illness - Reason for Consult Consult date: 11/28/21 Reason for consult: mental health evaluation - History of Present Psychiatric Illness The patient is a 70 year old female with history of schizophrenia, and anxiety disorder who was recently discharged from this facility and awaiting placement. She was seen this morning. She report intermitent/ passive suicidal ideation with no plan. She denies any current homicidal ideation and hallucinations. PAST PSYCHIATRIC HISTORY: Diagnoses: schizophrenia, anxiety Suicide attempts or Self-harm behavior: Denies Prior psychiatric hospitalizations: Yes Substance Abuse history: Denies Previous psychiatric medications tried: Could not recall Outpatient treatment: Yes PAST MEDICAL HISTORY: Family Psychiatric History: None reported SOCIAL HISTORY Marital Status: Single Living Arrangements: Alone Employment Status: Disabled Access to guns/weapons: Denies Education: History of Abuse: Denies Legal History: REVIEW OF SYSTEMS Constitutional: Negative for weight loss ENT: Negative for stridor Respiratory: Negative for cough or hemoptysis All other systems reviewed and are negative MENTAL STATUS General Appearance and Behavior: age appropriate, good eye contact, cooperative, anxious Cooperation: Cooperative Psychomotor Behavior: within normal limits Mood: depressed, anxious Affect and affective range: Congruent with stated mood, tearful Thought Process: goal directed Thought Content: Reality oriented Speech: Normal volume and Regular rate and rhythm Suicidal Ideation: Denies Homicidal Ideation: Denies HI Hallucinations: Denies Impulse Control: intact Insight and Judgment: Limited Memory: Limited Attention: Distracted Orientation: alert and oriented Assessment Schizophrenia Generalized Anxiety Disorder Treatment Plan Case management Continue home medications The patient is to get first dose of meds prior to leaving. Benefits and possible SE were explained to patient. She verbalizes understanding. Risks, benefits and alternatives of medications discussed with the patient, questions answered and consent obtained from patient. PSYCHOTHERAPY: Supportive psychotherapy provided MEDICAL: Per primary team DELIRIUM PRECAUTIONS: Please re-orient patient frequently, keep lights on during the day, and minimize benzodiazepines and opiates as these medications could worsen patient's confusion. SENIOR COMPUTER SPECIALIST: Defer to primary DISPOSITION: Do not Recommend acute inpatient psychiatric hospitalization at this time. Transmission And Protection Engineer will provide patient with psychiatric outpatient resources. FOLLOW-UP: Will sign off. Thank you for the consult. Please contact with any questions and/or concerns Case discussed with Dr. Bull who agrees with current disposition Medications and Allergies Medications and Allergies Allergies Allergy/AdvReac Type Severity Reaction Status Date / Time No Known Allergies Allergy Verified 11/21/21 16:42 Home Medications Medication Instructions Recorded Confirmed Last Taken Type Escitalopram [Lexapro] 10 mg PO DAILY #30 11/21/21 11/23/21 Unknown Rx Famotidine [Acid-Pep] 20 mg PO BID #30 11/21/21 11/23/21 Unknown Rx Meloxicam [Mobic] 7.5 mg PO QDAY #30 11/21/21 11/23/21 Unknown Rx Propranolol HCl [Inderal Xl] 80 mg PO DAILY #30 11/21/21 11/23/21 Unknown Rx buPROPion HCL [Bupropion Xl] 150 mg PO DAILY #30 11/21/21 11/23/21 Unknown Rx clonazePAM [KlonoPIN] 1 mg PO QID #120 tablet 11/21/21 11/23/21 Unknown Rx lamoTRIgine [LaMICtal] 25 mg PO BID #60 11/21/21 11/23/21 Unknown Rx lisinopriL [Lisinopril] 10 mg PO DAILY #30 11/21/21 11/23/21 Unknown Rx risperiDONE [RisperDAL] 1 mg PO HS #30 11/21/21 11/23/21 Unknown Rx Propranolol HCl [Inderal Xl] 80 mg PO DAILY 11/23/21 11/23/21 Unknown History amLODIPine 5 mg PO DAILY 11/23/21 11/23/21 Unknown History Active Meds: Active Medications Amlodipine Besylate (Amlodipine 5 Mg Tab) 5 mg PO DAILY [facility] Last Admin: 11/27/21 10:47 Dose: 5 mg Bupropion HCl (Bupropion Xl 150 Mg Tab) 150 mg PO DAILY [facility] Last Admin: 11/27/21 10:48 Dose: 150 mg Clonazepam (Clonazepam 0.5 Mg Tab) 1 mg PO QID [facility] Last Admin: 11/27/21 21:42 Dose: 1 mg Escitalopram Oxalate (Escitalopram 10 Mg Tab) 10 mg PO DAILY [facility] Last Admin: 11/27/21 10:48 Dose: 10 mg Famotidine (Famotidine 20 Mg Tab) 20 mg PO BID [facility] Last Admin: 11/27/21 21:43 Dose: 20 mg Haloperidol Lactate (Haloperidol Lactate 5 Mg/1 Ml Inj) 10 mg IM Q8H PRN PRN Reason: Agitation Last Admin: 11/22/21 07:40 Dose: 10 mg Lamotrigine (Lamotrigine 25 Mg Tab) 25 mg PO BID [facility] Last Admin: 11/27/21 21:43 Dose: 25 mg Lisinopril (Lisinopril 10 Mg Tab) 10 mg PO DAILY [facility] Last Admin: 11/27/21 10:48 Dose: 10 mg Meloxicam (Meloxicam 7.5 Mg Tab) 7.5 mg PO QDAY [facility] Last Admin: 11/27/21 10:48 Dose: 7.5 mg Propranolol HCl (Propranolol La 80 Mg Cap) 80 mg PO QDAY [facility] Last Admin: 11/27/21 10:47 Dose: 80 mg Risperidone (Risperidone 1 Mg Tab) 1 mg PO [facility] Last Admin: 11/27/21 21:43 Dose: 1 mg Mental Status Exam - Vital signs Last Vital Signs Temp 97.3 F L 11/27/21 22:13 Pulse 59 L 11/27/21 22:13 Resp 16 11/27/21 22:13 BP 149/77 11/27/21 22:13 Pulse Ox 96 11/27/21 22:13 Results Result Diagrams: 11/21/21 17:38 11/21/21 17:38 All other labs normal.
--- NOTE | 2021-11-28 12:32 | Emergency Department Report ---
ED General Adult HPI - General Chief complaint: Psych Stated complaint: PSYCH/SENT FROM [facility]?: No Time Seen by Provider: 11/21/21 17:28 Source: patient, EMS Mode of arrival: Stretcher Limitations: Altered Mental Status - History of Present Illness Initial comments: THIS IS A 70 YEAR OLD FEMALE WHO CAME TO THE HOSPITAL SEVERAL DAYS AGO WITH CONCERN OF SUICIDAL IDEATIONS BUT NO PLANS. BEHAVIOR HEALTH HAVE EVALUATED THE PATIENT: Treatment Plan Case management Continue home medications The patient is to get first dose of meds prior to leaving. Benefits and possible SE were explained to patient. She verbalizes understanding. Risks, benefits and alternatives of medications discussed with the patient, questions answered and consent obtained from patient. PSYCHOTHERAPY: Supportive psychotherapy provided MEDICAL: Per primary team DELIRIUM PRECAUTIONS: Please re-orient patient frequently, keep lights on during the day, and minimize benzodiazepines and opiates as these medications could worsen patient's confusion. ASSURANCE AUDITOR: Defer to primary DISPOSITION: Do not Recommend acute inpatient psychiatric hospitalization at this time. Secy will provide patient with psychiatric outpatient resources. FOLLOW-UP: Will sign off. Thank you for the consult. Please contact with any questions and/or concerns Case discussed with Dr. Bull who agrees with current disposition Severity scale (0 -10): 0 Improves with: none Worsens with: none Associated Symptoms: denies other symptoms Treatments Prior to Arrival: none - Related Data Home Medications Medication Instructions Recorded Confirmed Last Taken Propranolol HCl [Inderal Xl] 80 mg PO DAILY 11/23/21 11/23/21 Unknown amLODIPine 5 mg PO DAILY 11/23/21 11/23/21 Unknown Previous Rx's Medication Instructions Recorded Last Taken Type Escitalopram [Lexapro] 10 mg PO DAILY #30 11/21/21 Unknown Rx Famotidine [Acid-Pep] 20 mg PO BID #30 11/21/21 Unknown Rx Meloxicam [Mobic] 7.5 mg PO QDAY #30 11/21/21 Unknown Rx Propranolol HCl [Inderal Xl] 80 mg PO DAILY #30 11/21/21 Unknown Rx buPROPion HCL [Bupropion Xl] 150 mg PO DAILY #30 11/21/21 Unknown Rx clonazePAM [KlonoPIN] 1 mg PO QID #120 tablet 11/21/21 Unknown Rx lamoTRIgine [LaMICtal] 25 mg PO BID #60 11/21/21 Unknown Rx lisinopriL [Lisinopril] 10 mg PO DAILY #30 11/21/21 Unknown Rx risperiDONE [RisperDAL] 1 mg PO HS #30 11/21/21 Unknown Rx Allergies Allergy/AdvReac Type Severity Reaction Status Date / Time No Known Allergies Allergy Verified 11/21/21 16:42 ED Review of Systems ROS: Stated complaint: PSYCH/SENT FROM [facility] Other details as noted in HPI Constitutional: denies: chills, fever Eyes: denies: eye pain, eye discharge, vision change ENT: denies: ear pain, throat pain Respiratory: denies: cough, shortness of breath, wheezing Cardiovascular: denies: chest pain, palpitations Endocrine: no symptoms reported Gastrointestinal: denies: abdominal pain, nausea, diarrhea Genitourinary: denies: urgency, dysuria, discharge Musculoskeletal: denies: back pain, joint swelling, arthralgia Skin: denies: rash, lesions Neurological: denies: headache, weakness, paresthesias Psychiatric: denies: anxiety, depression Hematological/Lymphatic: denies: easy bleeding, easy bruising ED Past Medical Hx - Past Medical History Hx Renal Disease: No Hx Arthritis: Yes Hx Seizures: Yes (without Klonopin per pt.) Hx Dementia: Yes - Surgical History Hx Cholecystectomy: No Hx Appendectomy: No - Social History Smoking Status: Never Smoker Substance Use Type: None - Medications Home Medications: Home Medications Medication Instructions Recorded Confirmed Last Taken Type Escitalopram [Lexapro] 10 mg PO DAILY #30 11/21/21 11/23/21 Unknown Rx Famotidine [Acid-Pep] 20 mg PO BID #30 11/21/21 11/23/21 Unknown Rx Meloxicam [Mobic] 7.5 mg PO QDAY #30 11/21/21 11/23/21 Unknown Rx Propranolol HCl [Inderal Xl] 80 mg PO DAILY #30 11/21/21 11/23/21 Unknown Rx buPROPion HCL [Bupropion Xl] 150 mg PO DAILY #30 11/21/21 11/23/21 Unknown Rx clonazePAM [KlonoPIN] 1 mg PO QID #120 tablet 11/21/21 11/23/21 Unknown Rx lamoTRIgine [LaMICtal] 25 mg PO BID #60 11/21/21 11/23/21 Unknown Rx lisinopriL [Lisinopril] 10 mg PO DAILY #30 11/21/21 11/23/21 Unknown Rx risperiDONE [RisperDAL] 1 mg PO HS #30 11/21/21 11/23/21 Unknown Rx Propranolol HCl [Inderal Xl] 80 mg PO DAILY 11/23/21 11/23/21 Unknown History amLODIPine 5 mg PO DAILY 11/23/21 11/23/21 Unknown History ED Physical Exam - General Limitations: Altered Mental Status General appearance: alert, in no apparent distress - Head Head exam: Present: atraumatic, normocephalic, normal inspection - Eye Eye exam: Present: normal appearance, PERRL, EOMI Pupils: Present: normal accommodation - ENT ENT exam: Present: normal exam - Neck Neck exam: Present: normal inspection, full ROM - Respiratory Respiratory exam: Present: normal lung sounds bilaterally - Cardiovascular Cardiovascular Exam: Present: regular rate, normal rhythm, normal heart sounds - Extremities Exam Extremities exam: Present: normal inspection, full ROM - Back Exam Back exam: Present: normal inspection, full ROM - Neurological Exam Neurological exam: Present: alert, oriented X3, CN II-XII intact - Psychiatric Psychiatric exam: Present: normal affect, normal mood, suicidal ideation (WITHOUT PLAN) - Skin Skin exam: Present: normal color ED Course Vital Signs 11/21/21 11/21/21 11/21/21 15:09 20:49 22:25 Temperature 98.2 F Pulse Rate 63 86 Respiratory 14 16 Rate Blood Pressure Blood Pressure 150/92 121/72 [Left] O2 Sat by Pulse 96 98 98 Oximetry 11/22/21 11/22/21 11/22/21 00:40 06:39 21:31 Temperature 97.8 F Pulse Rate 89 89 87 Respiratory 16 16 18 Rate Blood Pressure Blood Pressure 144/65 123/62 160/84 [Left] O2 Sat by Pulse 98 99 96 Oximetry 11/22/21 11/23/21 11/23/21 22:23 07:30 09:35 Temperature 99.1 F Pulse Rate 93 H Respiratory 20 Rate Blood Pressure Blood Pressure 147/83 [Left] O2 Sat by Pulse 96 96 94 Oximetry 11/23/21 11/23/21 11/24/21 16:59 21:12 09:12 Temperature 98.8 F 98.6 F 97 F L Pulse Rate 95 H 88 105 H Respiratory 20 16 20 Rate Blood Pressure Blood Pressure 168/79 168/86 150/84 [Left] O2 Sat by Pulse 97 96 95 Oximetry 11/24/21 11/24/21 11/24/21 10:04 10:05 10:42 Temperature Pulse Rate 105 H 105 H 105 H Respiratory Rate Blood Pressure 150/84 150/84 150/84 Blood Pressure [Left] O2 Sat by Pulse Oximetry 11/25/21 11/25/21 11/25/21 06:34 11:18 11:19 Temperature Pulse Rate 66 60 60 Respiratory 16 Rate Blood Pressure 109/47 109/47 Blood Pressure 123/84 [Left] O2 Sat by Pulse 100 Oximetry 11/25/21 11/25/21 11/25/21 11:20 12:00 23:20 Temperature 97.0 F L 98.9 F Pulse Rate 60 60 74 Respiratory 18 18 Rate Blood Pressure 109/47 Blood Pressure 109/47 147/74 [Left] O2 Sat by Pulse 92 Oximetry 11/26/21 11/26/21 11/26/21 11:23 11:24 19:51 Temperature 98.4 F 99.2 F Pulse Rate 77 60 Respiratory 18 16 Rate Blood Pressure Blood Pressure 159/77 140/62 [Left] O2 Sat by Pulse 96 96 93 Oximetry 11/27/21 11/27/21 11/27/21 03:19 09:16 22:13 Temperature 97.4 F L 97.3 F L Pulse Rate 60 59 L Respiratory 18 16 Rate Blood Pressure Blood Pressure 130/83 149/77 [Left] O2 Sat by Pulse 100 98 96 Oximetry ED Medical Decision Making - Lab Data Result diagrams: 11/21/21 17:38 11/21/21 17:38 - Medical Decision Making Treatment Plan Case management Continue home medications The patient is to get first dose of meds prior to leaving. Benefits and possible SE were explained to patient. She verbalizes understanding. Risks, benefits and alternatives of medications discussed with the patient, questions answered and consent obtained from patient. PSYCHOTHERAPY: Supportive psychotherapy provided MEDICAL: Per primary team DELIRIUM PRECAUTIONS: Please re-orient patient frequently, keep lights on during the day, and minimize benzodiazepines and opiates as these medications could worsen patient's confusion. ASSURANCE AUDITOR: Defer to primary DISPOSITION: Do not Recommend acute inpatient psychiatric hospitalization at this time. Secy will provide patient with psychiatric outpatient resources. FOLLOW-UP: Will sign off. Thank you for the consult. Please contact with any questions and/or concerns Case discussed with Dr. Bull who agrees with current disposition Critical care attestation.: If time is entered above; I have spent that time in minutes in the direct care of this critically ill patient, excluding procedure time. ED Disposition Clinical Impression: Passive suicidal ideations Disposition: 01 HOME / SELF CARE / HOMELESS Is pt being admited?: No Does the pt Need Aspirin: No Condition: Stable Instructions: Suicidal Feelings: How to Help Yourself Additional Instructions: If you if have any suicidal homicidal ideation please return to the ER immedia tely Referrals: PRIMARY CARE, [Primary Care Provider] - 3-5 Days Time of Disposition: 12:32
[2021-11-28] MEDS ORDERED: ACETAMINOPHEN 325 MG TAB PO ONE (13:00)
[2021-11-28] MEDS: clonazePAM 0.5 MG TAB PO SCH (21:00)
[2021-11-28] MEDS: risperiDONE 1 MG TAB PO SCH (21:00)
[2021-11-28] MEDS: FAMOTIDINE 20 MG TAB PO SCH (21:00)
[2021-11-29] MEDS: lamoTRIgine 25 MG TAB PO SCH ×3 (07:30→22:31)
[2021-11-29] MEDS: amLODIPine 5 MG TAB PO SCH (10:04)
[2021-11-29] MEDS: buPROPion XL 150 MG TAB PO SCH (10:04)
[2021-11-29] MEDS: FAMOTIDINE 20 MG TAB PO SCH ×2 (10:05→22:31)
[2021-11-29] MEDS: clonazePAM 0.5 MG TAB PO SCH ×3 (10:06→22:32)
[2021-11-29] MEDS: ESCITALOPRAM 10 MG TAB PO SCH (10:06)
[2021-11-29] MEDS: LISINOPRIL 10 MG TAB PO SCH (10:07)
[2021-11-29] MEDS: MELOXICAM 7.5 MG TAB PO SCH (10:47)
[2021-11-29] MEDS: PROPRANOLOL LA 80 MG CAP PO SCH (10:48)
--- NOTE | 2021-11-29 14:13 | Event Note ---
Date: 11/29/21 S: 70-year-old female with history of schizophrenia presents for evaluation requiring placement. At the time of the dictation of this note, the patient has been in our system for 191 hours and has been assessed multiple times by mental health as well as other ER providers. Patient herself denies any complaints. O: Elderly female, sitting on chair, comfortable appearing, denies any complaints except she repeatedly asked "where am I?" No acute distress. She is moving all extremities spontaneously and has no focal neurological deficits. He is not agitated. Assessment: 70-year-old female with history of schizophrenia who has been in the care of [facility] for 191 hours at the time of the dictation of this note, presents awaiting placement. Vital signs stable. Patient was deemed medically cleared. Psychiatry consultation notes appreciated. Plan: continue psychiatric management per psychiatry Pt continues to await formal placement for acute inpatient psychiatric hospitalization
[2021-11-29] MEDS: risperiDONE 1 MG TAB PO SCH (22:29)
--- NOTE | 2021-11-30 07:20 | Event Note ---
Date: 11/30/21 S: No events reported overnight O: Vital Signs - 8 hr 11/30/21 10:26 Temperature 99.1 F Pulse Rate 65 Respiratory 18 Rate Blood Pressure 129/72 [Left] O2 Sat by Pulse 94 Oximetry A: Cleared by psych P: Awaiting facility to accept patient for safe discharge.
[2021-11-30] MEDS: amLODIPine 5 MG TAB PO SCH (10:55)
[2021-11-30] MEDS: buPROPion XL 150 MG TAB PO SCH (10:55)
[2021-11-30] MEDS: MELOXICAM 7.5 MG TAB PO SCH (10:55)
[2021-11-30] MEDS: ESCITALOPRAM 10 MG TAB PO SCH (10:55)
[2021-11-30] MEDS: lamoTRIgine 25 MG TAB PO SCH ×2 (10:55→22:24)
[2021-11-30] MEDS: PROPRANOLOL LA 80 MG CAP PO SCH (10:55)
[2021-11-30] MEDS: FAMOTIDINE 20 MG TAB PO SCH ×2 (10:55→22:24)
[2021-11-30] MEDS: LISINOPRIL 10 MG TAB PO SCH (10:56)
[2021-11-30] MEDS: clonazePAM 0.5 MG TAB PO SCH ×4 (10:56→22:25)
[2021-11-30] MEDS: risperiDONE 1 MG TAB PO SCH (22:25)
[2021-12-01] MEDS: amLODIPine 5 MG TAB PO SCH (09:53)
[2021-12-01] MEDS: MELOXICAM 7.5 MG TAB PO SCH (09:54)
[2021-12-01] MEDS: buPROPion XL 150 MG TAB PO SCH (09:54)
[2021-12-01] MEDS: clonazePAM 0.5 MG TAB PO SCH ×4 (09:54→21:47)
[2021-12-01] MEDS: lamoTRIgine 25 MG TAB PO SCH ×2 (09:54→21:47)
[2021-12-01] MEDS: FAMOTIDINE 20 MG TAB PO SCH ×2 (09:54→21:47)
[2021-12-01] MEDS: ESCITALOPRAM 10 MG TAB PO SCH (09:54)
[2021-12-01] MEDS: PROPRANOLOL LA 80 MG CAP PO SCH (09:54)
[2021-12-01] MEDS: LISINOPRIL 10 MG TAB PO SCH (09:54)
--- NOTE | 2021-12-01 11:56 | Event Note ---
Date: 12/01/21 S: No events reported overnight O: Vital Signs - 8 hr 12/01/21 11:07 Temperature 98.3 F Pulse Rate 68 Respiratory 18 Rate Blood Pressure 132/70 [Left] O2 Sat by Pulse 95 Oximetry A: Cleared by psych P: Awaiting safe discharge
[2021-12-01] MEDS: risperiDONE 1 MG TAB PO SCH (21:46)
[2021-12-02] MEDS: MELOXICAM 7.5 MG TAB PO SCH (10:25)
[2021-12-02] MEDS: buPROPion XL 150 MG TAB PO SCH (10:25)
[2021-12-02] MEDS: FAMOTIDINE 20 MG TAB PO SCH (10:25)
[2021-12-02] MEDS: amLODIPine 5 MG TAB PO SCH (10:25)
[2021-12-02] MEDS: PROPRANOLOL LA 80 MG CAP PO SCH (10:25)
[2021-12-02] MEDS: lamoTRIgine 25 MG TAB PO SCH (10:25)
[2021-12-02] MEDS: ESCITALOPRAM 10 MG TAB PO SCH (10:25)
[2021-12-02] MEDS: clonazePAM 0.5 MG TAB PO SCH ×2 (10:26→14:39)
[2021-12-02] MEDS: LISINOPRIL 10 MG TAB PO SCH (10:26)
--- NOTE | 2021-12-02 13:31 | Event Note ---
Date: 12/02/21 Patient seen and examined. She is resting comfortably in stretcher. She is in no acute distress. Nursing team reports no acute issues. Awaiting case management intervention for placement. Vital Signs 11/21/21 11/21/21 11/21/21 15:09 20:49 22:25 Temperature 98.2 F Pulse Rate 63 86 Respiratory 14 16 Rate Blood Pressure Blood Pressure 150/92 121/72 [Left] O2 Sat by Pulse 96 98 98 Oximetry 11/22/21 11/22/21 11/22/21 00:40 06:39 21:31 Temperature 97.8 F Pulse Rate 89 89 87 Respiratory 16 16 18 Rate Blood Pressure Blood Pressure 144/65 123/62 160/84 [Left] O2 Sat by Pulse 98 99 96 Oximetry 11/22/21 11/23/21 11/23/21 22:23 07:30 09:35 Temperature 99.1 F Pulse Rate 93 H Respiratory 20 Rate Blood Pressure Blood Pressure 147/83 [Left] O2 Sat by Pulse 96 96 94 Oximetry 11/23/21 11/23/21 11/24/21 16:59 21:12 09:12 Temperature 98.8 F 98.6 F 97 F L Pulse Rate 95 H 88 105 H Respiratory 20 16 20 Rate Blood Pressure Blood Pressure 168/79 168/86 150/84 [Left] O2 Sat by Pulse 97 96 95 Oximetry 11/24/21 11/24/21 11/24/21 10:04 10:05 10:42 Temperature Pulse Rate 105 H 105 H 105 H Respiratory Rate Blood Pressure 150/84 150/84 150/84 Blood Pressure [Left] O2 Sat by Pulse Oximetry 11/25/21 11/25/21 11/25/21 06:34 11:18 11:19 Temperature Pulse Rate 66 60 60 Respiratory 16 Rate Blood Pressure 109/47 109/47 Blood Pressure 123/84 [Left] O2 Sat by Pulse 100 Oximetry 11/25/21 11/25/21 11/25/21 11:20 12:00 23:20 Temperature 97.0 F L 98.9 F Pulse Rate 60 60 74 Respiratory 18 18 Rate Blood Pressure 109/47 Blood Pressure 109/47 147/74 [Left] O2 Sat by Pulse 92 Oximetry 11/26/21 11/26/21 11/26/21 11:23 11:24 19:51 Temperature 98.4 F 99.2 F Pulse Rate 77 60 Respiratory 18 16 Rate Blood Pressure Blood Pressure 159/77 140/62 [Left] O2 Sat by Pulse 96 96 93 Oximetry 11/27/21 11/27/21 11/27/21 03:19 09:16 22:13 Temperature 97.4 F L 97.3 F L Pulse Rate 60 59 L Respiratory 18 16 Rate Blood Pressure Blood Pressure 130/83 149/77 [Left] O2 Sat by Pulse 100 98 96 Oximetry 11/28/21 11/28/21 11/28/21 09:00 10:00 22:00 Temperature 97.2 F L Pulse Rate 69 Respiratory 18 Rate Blood Pressure Blood Pressure 126/66 [Left] O2 Sat by Pulse 94 94 100 Oximetry 11/29/21 11/29/21 11/29/21 10:04 10:07 10:48 Temperature Pulse Rate 69 69 68 Respiratory Rate Blood Pressure 126/66 126/66 149/69 Blood Pressure [Left] O2 Sat by Pulse Oximetry 11/29/21 11/29/21 11/29/21 11:46 13:28 22:07 Temperature 98.6 F 98.7 F Pulse Rate 62 56 L Respiratory 16 14 16 Rate Blood Pressure Blood Pressure 123/66 127/60 [Left] O2 Sat by Pulse 96 96 93 Oximetry 11/30/21 11/30/21 12/01/21 10:26 20:52 11:07 Temperature 99.1 F 98.9 F 98.3 F Pulse Rate 65 57 L 68 Respiratory 18 18 18 Rate Blood Pressure Blood Pressure 129/72 150/79 132/70 [Left] O2 Sat by Pulse 94 94 95 Oximetry 12/01/21 12/02/21 12/02/21 22:01 08:29 08:30 Temperature 98.0 F 98.4 F Pulse Rate 58 L 66 Respiratory 16 16 Rate Blood Pressure Blood Pressure 162/77 151/68 [Left] O2 Sat by Pulse 95 95 95 Oximetry Lab Results 11/21/21 11/21/21 11/21/21 Range/Units 17:38 17:38 17:38 WBC 6.3 (4.5-11.0) K/mm3 RBC 4.41 (3.65-5.03) M/mm3 Hgb 12.4 (10.1-14.3) gm/dl Hct 37.9 (30.3-42.9) % MCV 86 (79-97) fl MCH 28 (28-32) pg MCHC 33 (30-34) % RDW 14.4 (13.2-15.2) % Plt Count 261 (140-440) K/mm3 Lymph % (Auto) 42.4 H (13.4-35.0) % Frontier % (Auto) 5.9 (0.0-7.3) % Eos % (Auto) 2.7 (0.0-4.3) % Baso % (Auto) 1.3 (0.0-1.8) % Lymph # (Auto) 2.7 (1.2-5.4) K/mm3 Frontier # (Auto) 0.4 (0.0-0.8) K/mm3 Eos # (Auto) 0.2 (0.0-0.4) K/mm3 Baso # (Auto) 0.1 (0.0-0.1) K/mm3 Seg Neutrophils % 47.7 (40.0-70.0) % Seg Neutrophils # 3.0 (1.8-7.7) K/mm3 Sodium 139 (137-145) mmol/L Potassium 4.1 (3.6-5.0) mmol/L Chloride 100.6 (98-107) mmol/L Carbon Dioxide 30 (22-30) mmol/L Anion Gap 13 mmol/L BUN 17 (7-17) mg/dL Creatinine 0.7 (0.6-1.2) mg/dL Estimated GFR > 60 ml/min BUN/Creatinine Ratio 24 % Glucose 157 H (65-100) mg/dL Calcium 9.2 (8.4-10.2) mg/dL Total Bilirubin < 0.20 (0.1-1.2) mg/dL AST 11 (5-40) units/L ALT 8 (7-56) units/L Alkaline Phosphatase 71 (35-129) units/L Total Protein 6.7 (6.3-8.2) g/dL Albumin 4.0 (3.9-5) g/dL Albumin/Globulin Ratio 1.5 % Salicylates < 0.3 L (2.8-20.0) mg/dL Acetaminophen (10.0-30.0) ug/mL Plasma/Serum Alcohol (0-0.07) % SARS-CoV-2 (PCR) (Negative) 11/21/21 11/21/21 11/23/21 Range/Units 17:38 17:38 08:52 WBC (4.5-11.0) K/mm3 RBC (3.65-5.03) M/mm3 Hgb (10.1-14.3) gm/dl Hct (30.3-42.9) % MCV (79-97) fl MCH (28-32) pg MCHC (30-34) % RDW (13.2-15.2) % Plt Count (140-440) K/mm3 Lymph % (Auto) (13.4-35.0) % Frontier % (Auto) (0.0-7.3) % Eos % (Auto) (0.0-4.3) % Baso % (Auto) (0.0-1.8) % Lymph # (Auto) (1.2-5.4) K/mm3 Frontier # (Auto) (0.0-0.8) K/mm3 Eos # (Auto) (0.0-0.4) K/mm3 Baso # (Auto) (0.0-0.1) K/mm3 Seg Neutrophils % (40.0-70.0) % Seg Neutrophils # (1.8-7.7) K/mm3 Sodium (137-145) mmol/L Potassium (3.6-5.0) mmol/L Chloride (98-107) mmol/L Carbon Dioxide (22-30) mmol/L Anion Gap mmol/L BUN (7-17) mg/dL Creatinine (0.6-1.2) mg/dL Estimated GFR ml/min BUN/Creatinine Ratio % Glucose (65-100) mg/dL Calcium (8.4-10.2) mg/dL Total Bilirubin (0.1-1.2) mg/dL AST (5-40) units/L ALT (7-56) units/L Alkaline Phosphatase (35-129) units/L Total Protein (6.3-8.2) g/dL Albumin (3.9-5) g/dL Albumin/Globulin Ratio % Salicylates (2.8-20.0) mg/dL Acetaminophen 5.0 L (10.0-30.0) ug/mL Plasma/Serum Alcohol < 0.01 (0-0.07) % SARS-CoV-2 (PCR) Negative (Negative)
[2021-12-03] MEDS: clonazePAM 0.5 MG TAB PO SCH (09:56)
[2021-12-03] MEDS: amLODIPine 5 MG TAB PO SCH (09:57)
[2021-12-03] MEDS: lamoTRIgine 25 MG TAB PO SCH (09:57)
[2021-12-03] MEDS: FAMOTIDINE 20 MG TAB PO SCH (09:57)
[2021-12-03] MEDS: PROPRANOLOL LA 80 MG CAP PO SCH (09:59)
[2021-12-03] MEDS: buPROPion XL 150 MG TAB PO SCH (10:00)
[2021-12-03] MEDS: LISINOPRIL 10 MG TAB PO SCH (10:00)
[2021-12-03] MEDS: ESCITALOPRAM 10 MG TAB PO SCH (10:00)
--- NOTE | 2021-12-03 12:01 | Event Note ---
Date: 12/03/21 S: No events reported overnight O: Vital Signs - 8 hr 12/03/21 12/03/21 12/03/21 09:57 09:59 10:00 Temperature Pulse Rate 59 L 59 L 59 L Respiratory Rate Blood Pressure [Left] O2 Sat by Pulse Oximetry 12/03/21 10:11 Temperature 98.5 F Pulse Rate 60 Respiratory 16 Rate Blood Pressure 122/55 [Left] O2 Sat by Pulse 100 Oximetry A: Cleared by psych P: Awaiting safe discharge by case Case management
[2021-12-04] MEDS: clonazePAM 0.5 MG TAB PO SCH ×4 (10:38→22:00)
[2021-12-04] MEDS: FAMOTIDINE 20 MG TAB PO SCH ×2 (10:38→22:01)
[2021-12-04] MEDS: MELOXICAM 7.5 MG TAB PO SCH (10:38)
[2021-12-04] MEDS: lamoTRIgine 25 MG TAB PO SCH ×2 (10:38→22:00)
[2021-12-04] MEDS: amLODIPine 5 MG TAB PO SCH (10:38)
[2021-12-04] MEDS: ESCITALOPRAM 10 MG TAB PO SCH (10:39)
[2021-12-04] MEDS: PROPRANOLOL LA 80 MG CAP PO SCH (10:39)
[2021-12-04] MEDS: buPROPion XL 150 MG TAB PO SCH (10:39)
[2021-12-04] MEDS: LISINOPRIL 10 MG TAB PO SCH (10:40)
--- NOTE | 2021-12-04 12:40 | Event Note ---
Date: 12/04/21 Seen and examined. No acute events noted. Patient resting comfortably in stretcher. Nursing team reports no acute issues. Awaiting placement from case management for appropriate disposition Vital Signs 11/21/21 11/21/21 11/21/21 15:09 20:49 22:25 Temperature 98.2 F Pulse Rate 63 86 Respiratory 14 16 Rate Blood Pressure Blood Pressure 150/92 121/72 [Left] O2 Sat by Pulse 96 98 98 Oximetry 11/22/21 11/22/21 11/22/21 00:40 06:39 21:31 Temperature 97.8 F Pulse Rate 89 89 87 Respiratory 16 16 18 Rate Blood Pressure Blood Pressure 144/65 123/62 160/84 [Left] O2 Sat by Pulse 98 99 96 Oximetry 11/22/21 11/23/21 11/23/21 22:23 07:30 09:35 Temperature 99.1 F Pulse Rate 93 H Respiratory 20 Rate Blood Pressure Blood Pressure 147/83 [Left] O2 Sat by Pulse 96 96 94 Oximetry 11/23/21 11/23/21 11/24/21 16:59 21:12 09:12 Temperature 98.8 F 98.6 F 97 F L Pulse Rate 95 H 88 105 H Respiratory 20 16 20 Rate Blood Pressure Blood Pressure 168/79 168/86 150/84 [Left] O2 Sat by Pulse 97 96 95 Oximetry 11/24/21 11/24/21 11/24/21 10:04 10:05 10:42 Temperature Pulse Rate 105 H 105 H 105 H Respiratory Rate Blood Pressure 150/84 150/84 150/84 Blood Pressure [Left] O2 Sat by Pulse Oximetry 11/25/21 11/25/21 11/25/21 06:34 11:18 11:19 Temperature Pulse Rate 66 60 60 Respiratory 16 Rate Blood Pressure 109/47 109/47 Blood Pressure 123/84 [Left] O2 Sat by Pulse 100 Oximetry 11/25/21 11/25/21 11/25/21 11:20 12:00 23:20 Temperature 97.0 F L 98.9 F Pulse Rate 60 60 74 Respiratory 18 18 Rate Blood Pressure 109/47 Blood Pressure 109/47 147/74 [Left] O2 Sat by Pulse 92 Oximetry 11/26/21 11/26/21 11/26/21 11:23 11:24 19:51 Temperature 98.4 F 99.2 F Pulse Rate 77 60 Respiratory 18 16 Rate Blood Pressure Blood Pressure 159/77 140/62 [Left] O2 Sat by Pulse 96 96 93 Oximetry 11/27/21 11/27/21 11/27/21 03:19 09:16 22:13 Temperature 97.4 F L 97.3 F L Pulse Rate 60 59 L Respiratory 18 16 Rate Blood Pressure Blood Pressure 130/83 149/77 [Left] O2 Sat by Pulse 100 98 96 Oximetry 11/28/21 11/28/21 11/28/21 09:00 10:00 22:00 Temperature 97.2 F L Pulse Rate 69 Respiratory 18 Rate Blood Pressure Blood Pressure 126/66 [Left] O2 Sat by Pulse 94 94 100 Oximetry 11/29/21 11/29/21 11/29/21 10:04 10:07 10:48 Temperature Pulse Rate 69 69 68 Respiratory Rate Blood Pressure 126/66 126/66 149/69 Blood Pressure [Left] O2 Sat by Pulse Oximetry 11/29/21 11/29/21 11/29/21 11:46 13:28 22:07 Temperature 98.6 F 98.7 F Pulse Rate 62 56 L Respiratory 16 14 16 Rate Blood Pressure Blood Pressure 123/66 127/60 [Left] O2 Sat by Pulse 96 96 93 Oximetry 11/30/21 11/30/21 12/01/21 10:26 20:52 11:07 Temperature 99.1 F 98.9 F 98.3 F Pulse Rate 65 57 L 68 Respiratory 18 18 18 Rate Blood Pressure Blood Pressure 129/72 150/79 132/70 [Left] O2 Sat by Pulse 94 94 95 Oximetry 12/01/21 12/02/21 12/02/21 22:01 08:29 08:30 Temperature 98.0 F 98.4 F Pulse Rate 58 L 66 Respiratory 16 16 Rate Blood Pressure Blood Pressure 162/77 151/68 [Left] O2 Sat by Pulse 95 95 95 Oximetry 12/02/21 12/03/21 12/03/21 20:20 09:57 09:59 Temperature 98.7 F Pulse Rate 61 59 L 59 L Respiratory 16 Rate Blood Pressure Blood Pressure 131/52 [Left] O2 Sat by Pulse 94 Oximetry 12/03/21 12/03/21 12/03/21 10:00 10:11 20:32 Temperature 98.5 F 97.4 F L Pulse Rate 59 L 60 68 Respiratory 16 16 Rate Blood Pressure Blood Pressure 122/55 154/73 [Left] O2 Sat by Pulse 100 93 Oximetry 12/04/21 12/04/21 12/04/21 10:38 10:39 10:40 Temperature Pulse Rate 86 86 86 Respiratory Rate Blood Pressure 151/83 151/83 151/83 Blood Pressure [Left] O2 Sat by Pulse Oximetry 12/04/21 10:46 Temperature 98.9 F Pulse Rate 86 Respiratory 18 Rate Blood Pressure Blood Pressure 151/83 [Left] O2 Sat by Pulse 95 Oximetry
[2021-12-04] MEDS: risperiDONE 1 MG TAB PO SCH (22:01)
[2021-12-05] MEDS ORDERED: ACETAMINOPHEN 325 MG TAB PO ONE (10:23)
[2021-12-05] MEDS: ESCITALOPRAM 10 MG TAB PO SCH (10:32)
[2021-12-05] MEDS: FAMOTIDINE 20 MG TAB PO SCH ×3 (10:32→22:31)
[2021-12-05] MEDS: buPROPion XL 150 MG TAB PO SCH (10:32)
[2021-12-05] MEDS: amLODIPine 5 MG TAB PO SCH (10:32)
[2021-12-05] MEDS: PROPRANOLOL LA 80 MG CAP PO SCH (10:32)
[2021-12-05] MEDS: lamoTRIgine 25 MG TAB PO SCH ×3 (10:32→22:31)
[2021-12-05] MEDS: LISINOPRIL 10 MG TAB PO SCH (10:32)
[2021-12-05] MEDS: clonazePAM 0.5 MG TAB PO SCH ×3 (10:32→22:29)
[2021-12-05] MEDS: MELOXICAM 7.5 MG TAB PO SCH (10:32)
[2021-12-05] MEDS: risperiDONE 1 MG TAB PO SCH ×2 (22:00→22:30)
[2021-12-06] MEDS: FAMOTIDINE 20 MG TAB PO SCH ×2 (11:30→21:34)
[2021-12-06] MEDS: lamoTRIgine 25 MG TAB PO SCH ×2 (11:30→21:33)
[2021-12-06] MEDS: clonazePAM 0.5 MG TAB PO SCH ×4 (11:30→21:34)
[2021-12-06] MEDS: ESCITALOPRAM 10 MG TAB PO SCH (11:31)
[2021-12-06] MEDS: amLODIPine 5 MG TAB PO SCH (11:31)
[2021-12-06] MEDS: PROPRANOLOL LA 80 MG CAP PO SCH (11:31)
[2021-12-06] MEDS: buPROPion XL 150 MG TAB PO SCH (11:31)
[2021-12-06] MEDS: LISINOPRIL 10 MG TAB PO SCH (11:32)
--- NOTE | 2021-12-06 14:13 | Event Note ---
Date: 12/06/21 Seen and examined. No acute events noted. Patient resting comfortably in stretcher. Nursing team reports no acute issues. Awaiting placement from case management for appropriate disposition.
[2021-12-06] MEDS ORDERED: ACETAMINOPHEN 325 MG TAB PO ONE (14:53)
[2021-12-06] MEDS: risperiDONE 1 MG TAB PO SCH (21:33)
[2021-12-07] MEDS: amLODIPine 5 MG TAB PO SCH (11:30)
[2021-12-07] MEDS: MELOXICAM 7.5 MG TAB PO SCH (11:30)
[2021-12-07] MEDS: buPROPion XL 150 MG TAB PO SCH (11:30)
[2021-12-07] MEDS: FAMOTIDINE 20 MG TAB PO SCH ×2 (11:30→21:36)
[2021-12-07] MEDS: lamoTRIgine 25 MG TAB PO SCH ×2 (11:30→21:36)
[2021-12-07] MEDS: clonazePAM 0.5 MG TAB PO SCH ×4 (11:30→21:37)
[2021-12-07] MEDS: ESCITALOPRAM 10 MG TAB PO SCH (11:30)
[2021-12-07] MEDS: PROPRANOLOL LA 80 MG CAP PO SCH (11:30)
[2021-12-07] MEDS: LISINOPRIL 10 MG TAB PO SCH (11:31)
--- NOTE | 2021-12-07 11:36 | Event Note ---
Date: 12/07/21 awaiting case management , medially cleared , vss , no events overnight
[2021-12-07] MEDS: ACETAMINOPHEN 500 MG TAB PO PRN (20:06)
[2021-12-07] MEDS: risperiDONE 1 MG TAB PO SCH (21:38)
[2021-12-08] MEDS: clonazePAM 0.5 MG TAB PO SCH ×3 (10:05→21:41)
[2021-12-08] MEDS: PROPRANOLOL LA 80 MG CAP PO SCH (10:05)
[2021-12-08] MEDS: buPROPion XL 150 MG TAB PO SCH (10:06)
[2021-12-08] MEDS: amLODIPine 5 MG TAB PO SCH (10:06)
[2021-12-08] MEDS: MELOXICAM 7.5 MG TAB PO SCH (10:06)
[2021-12-08] MEDS: lamoTRIgine 25 MG TAB PO SCH ×2 (10:06→21:42)
[2021-12-08] MEDS: FAMOTIDINE 20 MG TAB PO SCH ×2 (10:06→21:42)
[2021-12-08] MEDS: ESCITALOPRAM 10 MG TAB PO SCH (10:06)
[2021-12-08] MEDS: LISINOPRIL 10 MG TAB PO SCH (10:07)
--- NOTE | 2021-12-08 11:16 | Event Note ---
Date: 12/08/21 awaiting case management for placement
[2021-12-08] MEDS: ACETAMINOPHEN 500 MG TAB PO PRN ×2 (12:18→20:27)
[2021-12-08] MEDS: risperiDONE 1 MG TAB PO SCH (21:42)
[2021-12-09] MEDS: PROPRANOLOL LA 80 MG CAP PO SCH (09:45)
[2021-12-09] MEDS: amLODIPine 5 MG TAB PO SCH (09:45)
[2021-12-09] MEDS: MELOXICAM 7.5 MG TAB PO SCH (09:48)
[2021-12-09] MEDS: buPROPion XL 150 MG TAB PO SCH (09:48)
[2021-12-09] MEDS: clonazePAM 0.5 MG TAB PO SCH ×4 (09:48→21:58)
[2021-12-09] MEDS: FAMOTIDINE 20 MG TAB PO SCH ×2 (09:48→21:55)
[2021-12-09] MEDS: lamoTRIgine 25 MG TAB PO SCH ×2 (09:48→21:56)
[2021-12-09] MEDS: ESCITALOPRAM 10 MG TAB PO SCH (09:49)
[2021-12-09] MEDS: LISINOPRIL 10 MG TAB PO SCH (09:49)
--- NOTE | 2021-12-09 11:32 | Event Note ---
Date: 12/09/21 awaiting case management placement , vss , no distress no events overnight
[2021-12-09] MEDS: risperiDONE 1 MG TAB PO SCH (21:55)
[2021-12-09] MEDS: ACETAMINOPHEN 500 MG TAB PO PRN (21:56)
[2021-12-10] MEDS: FAMOTIDINE 20 MG TAB PO SCH ×2 (10:50→22:30)
[2021-12-10] MEDS: MELOXICAM 7.5 MG TAB PO SCH (10:50)
[2021-12-10] MEDS: LISINOPRIL 10 MG TAB PO SCH (10:50)
[2021-12-10] MEDS: ESCITALOPRAM 10 MG TAB PO SCH (10:50)
[2021-12-10] MEDS: clonazePAM 0.5 MG TAB PO SCH ×3 (10:50→22:30)
[2021-12-10] MEDS: amLODIPine 5 MG TAB PO SCH (10:50)
[2021-12-10] MEDS: lamoTRIgine 25 MG TAB PO SCH ×2 (10:50→22:30)
[2021-12-10] MEDS: buPROPion XL 150 MG TAB PO SCH (10:50)
--- NOTE | 2021-12-10 13:00 | Event Note ---
Date: 12/10/21 S: 70-year-old female sent in for evaluation of combative behavior. Patient medically cleared and was cleared by psychiatry. Objective: Vitals are stable. Adult female, sitting on chair, no acute distress, comfortable appearing; denies anyc ompoaints Assessment: 70-year-old female, who was seen and evaluated by the initial evaluating emerg ency department attending and subsequently by psychiatry and has been cleared from their standpoint. Patient continues to await placement at a retirement facility via case management. Plan: Disposition per management.
[2021-12-10] MEDS: ACETAMINOPHEN 500 MG TAB PO PRN (17:00)
[2021-12-10] MEDS: risperiDONE 1 MG TAB PO SCH (22:30)
[2021-12-11] MEDS: clonazePAM 0.5 MG TAB PO SCH ×3 (10:38→18:03)
[2021-12-11] MEDS: amLODIPine 5 MG TAB PO SCH (10:38)
[2021-12-11] MEDS: PROPRANOLOL LA 80 MG CAP PO SCH (10:38)
[2021-12-11] MEDS: MELOXICAM 7.5 MG TAB PO SCH (10:38)
[2021-12-11] MEDS: ESCITALOPRAM 10 MG TAB PO SCH (10:38)
[2021-12-11] MEDS: lamoTRIgine 25 MG TAB PO SCH (10:38)
[2021-12-11] MEDS: FAMOTIDINE 20 MG TAB PO SCH (10:39)
[2021-12-11] MEDS: buPROPion XL 150 MG TAB PO SCH (10:39)
[2021-12-11] MEDS: LISINOPRIL 10 MG TAB PO SCH (10:39)
--- NOTE | 2021-12-11 15:05 | Emergency Department Report ---
Blank Doc - Documentation Documentation: 70-year-old female presents to the hospital currently awaiting case management disposition. Vital signs unremarkable.
[2021-12-12] MEDS: FAMOTIDINE 20 MG TAB PO SCH ×3 (00:21→21:58)
[2021-12-12] MEDS: risperiDONE 1 MG TAB PO SCH ×2 (00:21→21:59)
[2021-12-12] MEDS: clonazePAM 0.5 MG TAB PO SCH ×6 (00:22→21:58)
[2021-12-12] MEDS: ESCITALOPRAM 10 MG TAB PO SCH (09:30)
[2021-12-12] MEDS: MELOXICAM 7.5 MG TAB PO SCH (09:30)
[2021-12-12] MEDS: amLODIPine 5 MG TAB PO SCH (09:31)
[2021-12-12] MEDS: ACETAMINOPHEN 500 MG TAB PO PRN (09:31)
[2021-12-12] MEDS: lamoTRIgine 25 MG TAB PO SCH ×2 (09:32→21:58)
[2021-12-12] MEDS: buPROPion XL 150 MG TAB PO SCH (09:32)
[2021-12-12] MEDS: LISINOPRIL 10 MG TAB PO SCH (09:32)
[2021-12-12] MEDS: PROPRANOLOL LA 80 MG CAP PO SCH (09:32)
--- NOTE | 2021-12-13 06:32 | Event Note ---
Date: 12/13/21 Patient had no acute events overnight. States she is cold, otherwise feels fine this morning. Still awaiting disposition by case management.
[2021-12-13] MEDS: buPROPion XL 150 MG TAB PO SCH (10:02)
[2021-12-13] MEDS: clonazePAM 0.5 MG TAB PO SCH ×2 (10:02→16:14)
[2021-12-13] MEDS: FAMOTIDINE 20 MG TAB PO SCH (10:03)
[2021-12-13] MEDS: amLODIPine 5 MG TAB PO SCH (10:03)
[2021-12-13] MEDS: ESCITALOPRAM 10 MG TAB PO SCH (10:03)
[2021-12-13] MEDS: lamoTRIgine 25 MG TAB PO SCH (10:03)
[2021-12-13] MEDS: LISINOPRIL 10 MG TAB PO SCH (10:03)
[2021-12-13] MEDS: MELOXICAM 7.5 MG TAB PO SCH (16:14)
[2021-12-13] MEDS: PROPRANOLOL LA 80 MG CAP PO SCH (16:14)
[2021-12-13] MEDS ORDERED: ALBUTEROL 2.5 MG/3 ML NEBU IH ONE ×2 (23:28→23:29)
[2021-12-13] MEDS ORDERED: IPRATROPIUM 0.02% NEBU 2.5 ML IH ONE ×2 (23:28→23:29)
--- NOTE | 2021-12-13 23:33 | XRay Report ---
CHEST 1 VIEW INDICATION / CLINICAL INFORMATION: cough, hypoxia. COMPARISON: Chest x-ray 11/20/2021 FINDINGS: SUPPORT DEVICES: Previous scoliosis repair appears stable. HEART / MEDIASTINUM: Stable interval appearance of the cardiomediastinal silhouette. LUNGS / PLEURA: Lungs are clear for degree of inspiration and technique utilized. BONES: No significant osseous abnormality. ADDITIONAL FINDINGS: No significant additional findings. IMPRESSION: 1. No active cardiopulmonary disease. Signer Name: Carter Laurent II, MD Signed: 12/13/2021 11:29 PM Workstation Name: [id number]
[2021-12-13 23:34] LABS: ABG Base Excess 3.7 mmol/L (-2.0-3.0); ABG HCO3 29.2 mmol/L (20.0-26.0); ABG Methemoglobin 0.5 % (0.0-1.5); ABG PCO2 47.5 mm Hg; ABG PH 7.406 pH Units (7.350-7.450); ABG PO2 54.9 mm Hg (80.0-90.0)
--- NOTE | 2021-12-14 02:57 | Event Note ---
Date: 12/14/21 pt was brought in to main ER for evaluation of hypoxia , rt given for wheeze x ray clear, o2 sat 97 on RA no distress , will take her back to psych area
--- NOTE | 2021-12-14 06:50 | Event Note ---
Date: 12/14/21 No acute events overnight. She denies any complaints this morning. Still awaiting disposition per social services aide.
[2021-12-14] MEDS: FAMOTIDINE 20 MG TAB PO SCH ×2 (10:29→22:00)
[2021-12-14] MEDS: clonazePAM 0.5 MG TAB PO SCH ×4 (10:29→22:00)
[2021-12-14] MEDS: lamoTRIgine 25 MG TAB PO SCH ×2 (10:29→22:00)
[2021-12-14] MEDS: PROPRANOLOL LA 80 MG CAP PO SCH (10:29)
[2021-12-14] MEDS: ESCITALOPRAM 10 MG TAB PO SCH (10:30)
[2021-12-14] MEDS: amLODIPine 5 MG TAB PO SCH (10:30)
[2021-12-14] MEDS: MELOXICAM 7.5 MG TAB PO SCH (10:30)
[2021-12-14] MEDS: buPROPion XL 150 MG TAB PO SCH (10:30)
[2021-12-14] MEDS: LISINOPRIL 10 MG TAB PO SCH (10:30)
[2021-12-14] MEDS: ACETAMINOPHEN 500 MG TAB PO PRN (16:33)
[2021-12-14] MEDS: risperiDONE 1 MG TAB PO SCH (22:00)
--- NOTE | 2021-12-15 06:14 | Event Note ---
Date: 12/15/21 Patient had no acute events overnight. States this morning she feels as if she is coming down with a cold. Still awaiting disposition per case management.
[2021-12-15] MEDS ORDERED: guaiFENesin DM 200/20 MG ORAL LIQD 10 ML PO ONE (09:12)
[2021-12-15] MEDS: clonazePAM 0.5 MG TAB PO SCH ×4 (10:31→22:00)
[2021-12-15] MEDS: FAMOTIDINE 20 MG TAB PO SCH ×2 (10:31→22:00)
[2021-12-15] MEDS: lamoTRIgine 25 MG TAB PO SCH ×2 (10:31→22:00)
[2021-12-15] MEDS: LISINOPRIL 10 MG TAB PO SCH (10:32)
[2021-12-15] MEDS: PROPRANOLOL LA 80 MG CAP PO SCH (10:32)
[2021-12-15] MEDS: MELOXICAM 7.5 MG TAB PO SCH (10:32)
[2021-12-15] MEDS: buPROPion XL 150 MG TAB PO SCH (10:32)
[2021-12-15] MEDS: ESCITALOPRAM 10 MG TAB PO SCH (10:32)
[2021-12-15] MEDS: amLODIPine 5 MG TAB PO SCH (10:32)
[2021-12-15] MEDS: risperiDONE 1 MG TAB PO SCH (22:00)
[2021-12-16] MEDS: lamoTRIgine 25 MG TAB PO SCH (10:21)
[2021-12-16] MEDS: FAMOTIDINE 20 MG TAB PO SCH (10:21)
[2021-12-16] MEDS: MELOXICAM 7.5 MG TAB PO SCH (10:21)
[2021-12-16] MEDS: clonazePAM 0.5 MG TAB PO SCH ×3 (10:21→18:09)
[2021-12-16] MEDS: amLODIPine 5 MG TAB PO SCH (10:22)
[2021-12-16] MEDS: ESCITALOPRAM 10 MG TAB PO SCH (10:23)
[2021-12-16] MEDS: PROPRANOLOL LA 80 MG CAP PO SCH (10:23)
[2021-12-16] MEDS: buPROPion XL 150 MG TAB PO SCH (10:23)
[2021-12-16] MEDS: LISINOPRIL 10 MG TAB PO SCH (10:23)
[2021-12-16] MEDS ORDERED: guaiFENesin 100 MG/5 ML ORAL LIQD PO ONE (11:59)
--- NOTE | 2021-12-16 11:59 | Event Note ---
Date: 12/16/21 vss , no distress request meds for cough , still awaiting social input for placement
[2021-12-16] MEDS ORDERED: guaiFENesin 100 MG/5 ML ORAL LIQD PO NR (16:00)
[2021-12-17] MEDS: risperiDONE 1 MG TAB PO SCH ×2 (04:36→21:56)
[2021-12-17] MEDS: lamoTRIgine 25 MG TAB PO SCH ×3 (04:36→21:56)
[2021-12-17] MEDS: clonazePAM 0.5 MG TAB PO SCH ×5 (04:36→21:56)
[2021-12-17] MEDS: FAMOTIDINE 20 MG TAB PO SCH ×3 (04:36→21:56)
[2021-12-17] MEDS: PROPRANOLOL LA 80 MG CAP PO SCH (10:42)
[2021-12-17] MEDS: LISINOPRIL 10 MG TAB PO SCH (10:42)
[2021-12-17] MEDS: MELOXICAM 7.5 MG TAB PO SCH (10:42)
[2021-12-17] MEDS: ESCITALOPRAM 10 MG TAB PO SCH (10:42)
[2021-12-17] MEDS: amLODIPine 5 MG TAB PO SCH (10:42)
[2021-12-17] MEDS: buPROPion XL 150 MG TAB PO SCH (10:42)
--- NOTE | 2021-12-17 13:26 | Event Note ---
Date: 12/17/21 Patient remains hemodynamically stable and afebrile. pending social/case management for placement.
[2021-12-17] MEDS: HALOPERIDOL LACTATE 5 MG/1 ML INJ IM PRN (15:39)
[2021-12-18] MEDS: FAMOTIDINE 20 MG TAB PO SCH ×2 (10:34→22:21)
[2021-12-18] MEDS: ESCITALOPRAM 10 MG TAB PO SCH (10:34)
[2021-12-18] MEDS: MELOXICAM 7.5 MG TAB PO SCH (10:34)
[2021-12-18] MEDS: buPROPion XL 150 MG TAB PO SCH (10:34)
[2021-12-18] MEDS: amLODIPine 5 MG TAB PO SCH (10:34)
[2021-12-18] MEDS: clonazePAM 0.5 MG TAB PO SCH ×4 (10:34→22:21)
[2021-12-18] MEDS: PROPRANOLOL LA 80 MG CAP PO SCH (10:34)
[2021-12-18] MEDS: lamoTRIgine 25 MG TAB PO SCH ×2 (10:34→22:21)
[2021-12-18] MEDS: LISINOPRIL 10 MG TAB PO SCH (10:34)
[2021-12-18] MEDS ORDERED: guaiFENesin DM 200/20 MG ORAL LIQD 10 ML PO ONE (11:54)
--- NOTE | 2021-12-18 12:58 | Event Note ---
Date: 12/18/21 S: No events reported overnight O: Vital Signs - 8 hr 12/18/21 12/18/21 10:42 10:43 Temperature 98.3 F Pulse Rate 72 Respiratory 18 Rate Blood Pressure 152/66 [Left] O2 Sat by Pulse 96 96 Oximetry A: Awaiting placement P: Awaiting placement by social work
[2021-12-18] MEDS: ACETAMINOPHEN 500 MG TAB PO PRN (19:57)
[2021-12-18] MEDS: risperiDONE 1 MG TAB PO SCH (22:21)
[2021-12-19] MEDS: amLODIPine 5 MG TAB PO SCH (10:01)
[2021-12-19] MEDS: lamoTRIgine 25 MG TAB PO SCH ×2 (10:02→22:20)
[2021-12-19] MEDS: PROPRANOLOL LA 80 MG CAP PO SCH (10:02)
[2021-12-19] MEDS: ESCITALOPRAM 10 MG TAB PO SCH (10:02)
[2021-12-19] MEDS: clonazePAM 0.5 MG TAB PO SCH ×4 (10:02→22:20)
[2021-12-19] MEDS: MELOXICAM 7.5 MG TAB PO SCH (10:03)
[2021-12-19] MEDS: buPROPion XL 150 MG TAB PO SCH (10:03)
[2021-12-19] MEDS: FAMOTIDINE 20 MG TAB PO SCH ×2 (10:03→22:20)
[2021-12-19] MEDS: LISINOPRIL 10 MG TAB PO SCH (10:03)
[2021-12-19] MEDS: guaiFENesin DM 200/20 MG ORAL LIQD 10 ML PO PRN (10:04)
--- NOTE | 2021-12-19 12:36 | Event Note ---
Date: 12/19/21 S: pt seen this morning and she told me she wanted to be discharged home. She wanted her bag so she can call her other niece to come and get her. No other modifying or associated factors reported. O:Normal physical A:Continue to monitor while waiting for case management placement P: Awaiting placement by social work as the patient's initial half-way will not take her back and no family member either.
[2021-12-19] MEDS: ACETAMINOPHEN 500 MG TAB PO PRN (17:01)
[2021-12-19] MEDS: risperiDONE 1 MG TAB PO SCH (22:21)
[2021-12-20] MEDS: buPROPion XL 150 MG TAB PO SCH (10:53)
[2021-12-20] MEDS: FAMOTIDINE 20 MG TAB PO SCH ×2 (10:53→22:06)
[2021-12-20] MEDS: amLODIPine 5 MG TAB PO SCH (10:53)
[2021-12-20] MEDS: MELOXICAM 7.5 MG TAB PO SCH (10:53)
[2021-12-20] MEDS: ESCITALOPRAM 10 MG TAB PO SCH (10:53)
[2021-12-20] MEDS: clonazePAM 0.5 MG TAB PO SCH ×4 (10:53→22:06)
[2021-12-20] MEDS: lamoTRIgine 25 MG TAB PO SCH ×2 (10:53→22:06)
[2021-12-20] MEDS: PROPRANOLOL LA 80 MG CAP PO SCH (10:53)
[2021-12-20] MEDS: LISINOPRIL 10 MG TAB PO SCH (10:54)
--- NOTE | 2021-12-20 13:12 | Event Note ---
Date: 12/20/21 S: pt seen this morning and with issue overnight by the nursing staff. No other modifying or associated factors reported. O:Normal physical A:Continue to monitor while waiting for case management placement P: Awaiting placement by social work as the patient's initial custodial will not take her back and no family member either.
[2021-12-20] MEDS: risperiDONE 1 MG TAB PO SCH (22:07)
[2021-12-20] MEDS: guaiFENesin DM 200/20 MG ORAL LIQD 10 ML PO PRN (22:07)
[2021-12-21] MEDS: clonazePAM 0.5 MG TAB PO SCH ×4 (10:19→22:00)
[2021-12-21] MEDS: buPROPion XL 150 MG TAB PO SCH (10:19)
[2021-12-21] MEDS: ESCITALOPRAM 10 MG TAB PO SCH (10:20)
[2021-12-21] MEDS: amLODIPine 5 MG TAB PO SCH (10:20)
[2021-12-21] MEDS: FAMOTIDINE 20 MG TAB PO SCH ×2 (10:20→22:00)
[2021-12-21] MEDS: lamoTRIgine 25 MG TAB PO SCH ×2 (11:19→22:00)
--- NOTE | 2021-12-21 12:13 | Event Note ---
Date: 12/21/21 no events overnight , vss , medically cleared , awaiting placement
[2021-12-21] MEDS: MELOXICAM 7.5 MG TAB PO SCH (12:20)
[2021-12-21] MEDS: LISINOPRIL 10 MG TAB PO SCH (12:20)
[2021-12-21] MEDS: PROPRANOLOL LA 80 MG CAP PO SCH (12:20)
[2021-12-21] MEDS: risperiDONE 1 MG TAB PO SCH (22:00)
[2021-12-21] MEDS ORDERED: ZIPRASIDONE MESYLATE 20 MG VIAL IM ONE (22:39)
[2021-12-22] MEDS: PROPRANOLOL LA 80 MG CAP PO SCH (10:18)
[2021-12-22] MEDS: clonazePAM 0.5 MG TAB PO SCH ×3 (10:18→22:15)
[2021-12-22] MEDS: amLODIPine 5 MG TAB PO SCH (10:18)
[2021-12-22] MEDS: LISINOPRIL 10 MG TAB PO SCH (10:19)
[2021-12-22] MEDS: FAMOTIDINE 20 MG TAB PO SCH ×2 (10:19→22:15)
[2021-12-22] MEDS: ESCITALOPRAM 10 MG TAB PO SCH (10:19)
[2021-12-22] MEDS: lamoTRIgine 25 MG TAB PO SCH ×2 (10:19→22:15)
[2021-12-22] MEDS: buPROPion XL 150 MG TAB PO SCH (10:19)
[2021-12-22] MEDS: MELOXICAM 7.5 MG TAB PO SCH (10:19)
--- NOTE | 2021-12-22 13:57 | Emergency Department Report ---
Blank Doc - Documentation Documentation: This is a 71-year-old female with dementia and bipolar disorder has been in the emergency department since 11/21/2021 after being kicked out of her facility for aggressive behavior. There have been no acute issues during my shift, and patient will be continued to be monitored. vital signs are normal. Possible patient is still awaiting placement in senior living.
[2021-12-22] MEDS: risperiDONE 1 MG TAB PO SCH (22:15)
[2021-12-23] MEDS: amLODIPine 5 MG TAB PO SCH (10:06)
[2021-12-23] MEDS: PROPRANOLOL LA 80 MG CAP PO SCH (10:06)
[2021-12-23] MEDS: clonazePAM 0.5 MG TAB PO SCH ×3 (10:06→17:38)
[2021-12-23] MEDS: buPROPion XL 150 MG TAB PO SCH (10:07)
[2021-12-23] MEDS: ESCITALOPRAM 10 MG TAB PO SCH (10:07)
[2021-12-23] MEDS: MELOXICAM 7.5 MG TAB PO SCH (10:07)
[2021-12-23] MEDS: FAMOTIDINE 20 MG TAB PO SCH (10:07)
[2021-12-23] MEDS: LISINOPRIL 10 MG TAB PO SCH (10:07)
[2021-12-23] MEDS: lamoTRIgine 25 MG TAB PO SCH (10:07)
[2021-12-23] MEDS: ACETAMINOPHEN 500 MG TAB PO PRN (12:16)
--- NOTE | 2021-12-23 13:50 | Emergency Department Report ---
Blank Doc - Documentation Documentation: Patient seen and examined. She was discharged from extended care facility bec ause of aggressive behavior. Patient has no complaints. patient awake and alert.
[2021-12-24] MEDS: clonazePAM 0.5 MG TAB PO SCH ×3 (10:11→18:56)
[2021-12-24] MEDS: FAMOTIDINE 20 MG TAB PO SCH (10:11)
[2021-12-24] MEDS: amLODIPine 5 MG TAB PO SCH (10:11)
[2021-12-24] MEDS: lamoTRIgine 25 MG TAB PO SCH (10:11)
[2021-12-24] MEDS: MELOXICAM 7.5 MG TAB PO SCH (10:12)
[2021-12-24] MEDS: ESCITALOPRAM 10 MG TAB PO SCH (10:12)
[2021-12-24] MEDS: buPROPion XL 150 MG TAB PO SCH (10:12)
[2021-12-24] MEDS: PROPRANOLOL LA 80 MG CAP PO SCH (10:12)
[2021-12-24] MEDS: LISINOPRIL 10 MG TAB PO SCH (10:12)
--- NOTE | 2021-12-25 09:35 | Emergency Department Report ---
Blank Doc - Documentation Documentation: 71yo F, history of bipolar disorder and dementia, who presented to the ER on , sent from her [facility] nursing facility for agitation and aggressive behavior. Per review of the patient's chart, patient had no significant overnight events. VSS. She continues to remain hold in the emergency department and is awaiting formal placement to receiving facility.
[2021-12-25] MEDS: clonazePAM 0.5 MG TAB PO SCH ×4 (10:26→23:00)
[2021-12-25] MEDS: ACETAMINOPHEN 500 MG TAB PO PRN (23:00)
[2021-12-25] MEDS: lamoTRIgine 25 MG TAB PO SCH ×2 (23:00→23:47)
[2021-12-25] MEDS ORDERED: lamoTRIgine 25 MG TAB ONE (23:36)
[2021-12-26] MEDS ORDERED: FAMOTIDINE 20 MG TAB PO ONE (00:30)
[2021-12-26] MEDS ORDERED: risperiDONE 1 MG TAB PO ONE (00:30)
--- NOTE | 2021-12-26 07:35 | Emergency Department Report ---
Blank Doc - Documentation Documentation: 71yo F w/dementia, who has been present in the emergency dept since 11/21/2021, p/w agitation. Due to the pt's agitation, the pt's originating facility has refused to accept her return to their facility. Vital signs stable. Per nursing staff, patient had no acute overnight events Patient continues to await formal disposition by psychiatry for definitive placement.
[2021-12-26] MEDS: clonazePAM 0.5 MG TAB PO SCH ×4 (10:04→22:09)
[2021-12-26] MEDS: ACETAMINOPHEN 500 MG TAB PO PRN (14:03)
[2021-12-27] MEDS: clonazePAM 0.5 MG TAB PO SCH ×4 (09:36→23:53)
--- NOTE | 2021-12-27 13:43 | Emergency Department Report ---
Blank Doc - Documentation Documentation: 15-year-old Case management patient being discharged today. Social service to find housing for patient.
[2021-12-27] MEDS: ACETAMINOPHEN 500 MG TAB PO PRN (17:58)
[2021-12-28] MEDS: clonazePAM 0.5 MG TAB PO SCH ×4 (10:08→21:39)
--- NOTE | 2021-12-28 12:10 | Event Note ---
Date: 12/28/21 S: No events reported overnight O: Vital Signs - 8 hr 12/28/21 10:00 Temperature 97.5 F L Pulse Rate 90 Respiratory 16 Rate Blood Pressure 150/92 [Right] O2 Sat by Pulse 96 Oximetry A/P: Patient awaiting transport via [employer] to [facility] and rehab 12/30/2021
[2021-12-28] MEDS: ACETAMINOPHEN 500 MG TAB PO PRN ×2 (13:37→22:11)
[2021-12-29] MEDS: ACETAMINOPHEN 500 MG TAB PO PRN ×2 (08:28→15:56)
[2021-12-29] MEDS: clonazePAM 0.5 MG TAB PO SCH ×4 (10:25→22:26)
--- NOTE | 2021-12-29 12:02 | Event Note ---
Date: 12/29/21 S: No events reported overnight O: Vital Signs - 8 hr 12/29/21 12/29/21 08:45 10:00 Temperature 98.3 F Pulse Rate 73 Respiratory 16 Rate Blood Pressure 110/71 [Right] O2 Sat by Pulse 96 96 Oximetry A/P:Patient awaiting transport via [employer] to [facility] and rehab 12/30/2021
[2021-12-30] MEDS: HALOPERIDOL LACTATE 5 MG/1 ML INJ IM PRN (01:21)
[2021-12-30] MEDS: ACETAMINOPHEN 500 MG TAB PO PRN (08:47)
[2021-12-30] MEDS: clonazePAM 0.5 MG TAB PO SCH (10:15)
[2021-12-30 11:08] VITALS: BP 134/67
== END 2021-12-30 11:30 ==
LOC: EEVIPCON 15:08 → ED 15:08
DX: F20.9 Schizophrenia, unspecified (principal); M19.90 Unspecified osteoarthritis, unspecified site; Z20.822 Contact with and (suspected) exposure to COVID-19; Z79.899 Other long term (current) drug therapy
CPT/HCPCS: 36415; 71045; 80053; 82803; 85025; 94640; 99285; J1630; U0003; 80320; 94644; G0480